=== PATIENT | female | born 1950 | race Caucasian/White ===

== ENCOUNTER 2017-11-22 08:08 | Day surgery (SDC) | payer MEDICARE, SELFPAY ==
[2017-11-16 13:30] VITALS: BMI 34.7
[2017-11-22] VITALS (17 sets, daily range): BP systolic 99–171; BP diastolic 42–99; PULSE 71–83; RESP 10–18; TEMP 36–36.8; O2SAT 86–96; BMI 34.7
--- NOTE | 2017-11-22 09:08 | PM.PREOP ---
Pre-operative Note Interval Note Pre-op Check: Yes History & Physical Reviewed by Physician and Yes Exam Performed Changes: Yes H&P completed within 30 days and has changed as indicated here:: This is an ADR (artificial disc replacement), not ACDF (fusion) at C56 and C67
--- NOTE | 2017-11-22 09:21 | PM.OP.1 ---
Operative Date/Time/Diagnoses Date of procedure: 11/22/17 Time of procedure: 11:37 Pre-op diagnosis: cervical disc herniation with radiculopathy Post-op diagnosis: same Procedure & Clinicians Procedure: C5-6 anterior diskectomy and artificial disc replacement C6-7 anterior diskectomy and artificial disc replacement Use of microscope Same procedure as scheduled: Yes Indications: [age] year old female with intractable pain from cervical disc herniation. They had failed conservative management and requested operative intervention. Risks and benefits of surgery were discussed and appropriate consents were obtained. Surgeon: Brandon Diaz Assembly Machine Tender: Alejandra Frankel Anesthesia Type: General Operative Notes Findings: None Closure Type: primary Specimen(s): none sent Implants & Drains: Flora LDR Mobi-C Estimated Blood Loss (mL): 5 Procedure in detail: Patient was brought to the operating room and intubated on the table. A time-out was performed. Preoperative antibiotics were given. The neck was prepped and draped in the standard sterile fashion.Using a skin fold, we made a 3 cm oblique incision on the left side. We used Bovie to go through the platysma and then did a standard anterolateral blunt dissection down to the precervical fascia. Fascia was nicked and elevated up. A marker was placed and x-ray was taken for localization. We then subperiosteally elevated up the longus colli muscles. Self-retaining retractors were placed. [place] pins were placed under x-ray guidance to be parallel to the endplates.We then brought in the microscope. A scalpel used to perform an annulotomy. We then used a combination of pituitaries and curettes and Kerrison to perform a complete anterior diskectomy at C6-7. We took down the PLL and used Kerrison to remove any posterior disc material and osteophytes. At the end we could from the nerve hook cephalad caudally and out the foramen and everything was opened. We distracted open with the parallel retail solar advisor. We then used the horseshoes for sizing. We then used the trials. We then inserted a 15 x 17 x 6mm size Mobi-C artificial disc replacement under fluoroscopic guidance for positioning. The traction was released and x-ray was checked again. The self-retaining retractors and Beason pins were removed and x-rays taken. We then went up to the C5-6 level. Again we distracted with Beason pins. A complete diskectomy was performed with pituitaries and curettes and Kerrison. We took down the PLL. We removed the posterior osteophytes. We trialed and then placed our next ADR, this was a 15 x 15 x 6mm Mobi-C. The retractors were all removed and final x-rays were taken. The wound was irrigated. There was no bleeding. The carotid was beating nicely. The platysma was closed. The superficial was closed. The skin was closed. A sterile dressing was placed. They were then extubated and brought to recovery room with no complications. Complications: none Condition: stable Disposition: PACU Plan for aftercare: Overnight observation. Discharge in the morning.
--- NOTE | 2017-11-22 09:24 | P.OP_ITS ---
Operative Date/Time/Diagnoses Date of procedure: 11/22/17 Time of procedure: 11:37 Pre-op diagnosis: cervical disc herniation with radiculopathy Post-op diagnosis: same Procedure & Clinicians Procedure: C5-6 anterior diskectomy and artificial disc replacement C6-7 anterior diskectomy and artificial disc replacement Use of microscope Same procedure as scheduled: Yes Indications: [age] year old female with intractable pain from cervical disc herniation. They had failed conservative management and requested operative intervention. Risks and benefits of surgery were discussed and appropriate consents were obtained. Surgeon: Brandon Diaz Sole Assessor: Alejandra Frankel Anesthesia Type: General Operative Notes Findings: None Closure Type: primary Specimen(s): none sent Implants & Drains: Flora LDR Mobi-C Estimated Blood Loss (mL): 5 Procedure in detail: Patient was brought to the operating room and intubated on the table. A time-out was performed. Preoperative antibiotics were given. The neck was prepped and draped in the standard sterile fashion.Using a skin fold, we made a 3 cm oblique incision on the left side. We used Bovie to go through the platysma and then did a standard anterolateral blunt dissection down to the precervical fascia. Fascia was nicked and elevated up. A marker was placed and x-ray was taken for localization. We then subperiosteally elevated up the longus colli muscles. Self-retaining retractors were placed. [place] pins were placed under x-ray guidance to be parallel to the endplates.We then brought in the microscope. A scalpel used to perform an annulotomy. We then used a combination of pituitaries and curettes and Kerrison to perform a complete anterior diskectomy at C6-7. We took down the PLL and used Kerrison to remove any posterior disc material and osteophytes. At the end we could from the nerve hook cephalad caudally and out the foramen and everything was opened. We distracted open with the parallel polygraph examiner. We then used the horseshoes for sizing. We then used the trials. We then inserted a 15 x 17 x 6mm size Mobi- C artificial disc replacement under fluoroscopic guidance for positioning. The traction was released and x-ray was checked again. The self-retaining retractors and [place] pins were removed and x-rays taken. We then went up to the C5-6 level. Again we distracted with [place] pins. A complete diskectomy was performed with pituitaries and curettes and Kerrison. We took down the PLL. We removed the posterior osteophytes. We trialed and then placed our next ADR, this was a 15 x 15 x 6mm Mobi-C. The retractors were all removed and final x-rays were taken. The wound was irrigated. There was no bleeding. The carotid was beating nicely. The platysma was closed. The superficial was closed. The skin was closed. A sterile dressing was placed. They were then extubated and brought to recovery room with no complications. Complications: none Condition: stable Disposition: PACU Plan for aftercare: Overnight observation. Discharge in the morning.
[2017-11-22] MEDS: LACTATED RINGERS 1,000 ML 42 ML IV ×2 (09:31→12:07)
[2017-11-22] MEDS: CLINDAMYCIN 900 MG/50 ML PIGGYBACK 50 MG IV ×2 (10:03→17:35)
--- NOTE | 2017-11-22 10:35 | SUR.OPER ---
Supine on padded OR bed, head on donut, arms padded and tucked at side, legs uncrossed, safety belt at thigh, tape over blanket over lower legs .
[2017-11-22] MEDS: THROMBIN (BOVINE) 5,000 UNIT VIAL 5000 UNIT TOP (10:41)
[2017-11-22] MEDS: SODIUM CHLORIDE 0.9% 1,000 ML, GENTAMICIN 80 MG IRR (10:47)
--- NOTE | 2017-11-22 11:31 | DI.RAD.S_ITS ---
PROCEDURE: XR CERVICAL SPINE 2V OR 3V INDICATIONS: ADR C5-6, C6-7 TECHNIQUE: 2 view(s) of the cervical spine were acquired. COMPARISON: None. FINDINGS: 2 intraoperative fluoroscopy images demonstrate discectomy at C5-C6 and C6-C7 with placement of disc prosthesis. The alignment is normal. IMPRESSION: Discectomy at C5-C6 and C6-C7. Dictated by: Bree Calero M.D. on 11/22/2017 at 11:49 Approved by: Bree Calero M.D. on 11/22/2017 at 11:50
[2017-11-22] MEDS: HYDROMORPHONE 2 MG INJ 0.5 MG IV ×4 (11:52→12:21)
[2017-11-22] MEDS: ALBUTEROL 2.5 MG/3 ML NEB (ADULT) INH (12:00)
[2017-11-22] MEDS: LORazepam 2 MG/ML SYRINGE 0.5 MG IV (12:06)
--- NOTE | 2017-11-22 12:53 | SUR.PHASEI ---
PT ARRIVED, RESTLESS, DUSKY SATS ON ROOM AIR INITIALLY IN 70'S,SIMPLE MASK APPLIED AND ALBUTEROL TREATMENT GIVEN, SATS EVENTUALLY CAME UP AND PT WEANED TO NASAL CANNULA AT 4/L . MEDICATED WITH LORAZEPAM FOR ANXIETY AND PT MUCH MORE RELAXED AFTER MED GIVEN. SWALLOW INTACT PT TOLERATED ICE CHIPS AND SPEECH STRONG. REPORT CALLED TO [facility]ANE AND PT TRANSPORTED UP TO ROM 214 ON O2 AT 4/L AND LWEFT IN STABLE CONDITION.
--- NOTE | 2017-11-22 13:46 | PT.IPTN ---
Current Diagnoses Other cervical disc displacement, unspecified cervical region (11/22/17) Strain of muscle, fascia and tendon at neck level, initial encounter (11/22/17) Surgery Performed Operation Date: 11/22/17 09:45 Actual Procedures p C5-6,C6-7 Anterior Discectomy and Artificial Disc Replacements - Brandon Diaz MD Physical Therapy Treatment Note M3 PT-IP Subjective Start: 11/22/17 13:44 Freq: NEEDED Status: Active Protocol: Document 11/22/17 13:44 (Rec: 11/22/17 13:46 [id number]) Subjective Physical Therapy Visit Type Type Administrative Note Notes 1:46pm RN states patient not ready for PT participation at this time. Will check on pt later.
[2017-11-22] MEDS: METHADONE 10 MG TABLET 30 MG PO ×2 (14:24→20:12)
[2017-11-22] MEDS: LACTATED RINGERS 1,000 ML 125 ML IV ×2 (14:25→22:27)
[2017-11-22] MEDS: HYDROMORPHONE 1 MG INJ 0.5 MG IV ×2 (14:26→22:27)
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
--- NOTE | 2017-11-22 16:30 | PT.IIE ---
Current Diagnoses Other cervical disc displacement, unspecified cervical region (11/22/17) Strain of muscle, fascia and tendon at neck level, initial encounter (11/22/17) Surgery Performed Operation Date: 11/22/17 09:45 Actual Procedures p C5-6,C6-7 Anterior Discectomy and Artificial Disc Replacements - Brandon Diaz MD Surgical History (Last Updated 11/16/17 @ 13:36 by Vandana Shearer RN) History of abdominal surgery (Acute) History of cholecystectomy (Acute) History of lumbar fusion (Acute) History of lumbar laminectomy (Acute) History of tonsillectomy (Acute) Hx of bladder repair surgery (Acute) Hx of tubal ligation (Acute) S/P removal of left ovary (Acute) Medical History (Last Updated 11/16/17 @ 13:36 by Vandana Shearer RN) Cervical disc herniation (Acute) Chronic, continuous use of opioids (Acute) Depression (Acute) Diabetes mellitus (Acute) GERD (gastroesophageal reflux disease) (Acute) History of cystitis (Acute) History of hysterectomy (Acute) Hyperlipidemia (Acute) Hypertension (Acute) Other chronic pain (Acute) Pain (Acute) Pancreatitis (Acute) Sleep apnea (Acute) Spinal headache (Acute) Spinal stenosis of cervical region (Acute) Strain of neck muscle (Acute) Physical Therapy Inpatient Evaluation/Re-Eval M1 PT/OT-IP Prior Functional Status Start: 11/22/17 13:44 Freq: NEEDED Status: Active Protocol: Document 11/22/17 16:30 AB (Rec: 11/22/17 17:26 AB [id number]) Medical Review Prior Functional Status Medical History Reviewed Yes Communication able to make needs known although pt is a little drowsy a this time Mobility and Gait pt stated that she is independent with all mobilities and ambulation without AD Social History Household Members family Living Arrangements House Number of Floors (Floors) One Floor Number of Stairs To Enter/Railing? 1 step from the front without rails 2 steps from the back without rails Home Environment High Toilet Walk in Shower Home Equipment Four Wheel Walker Straight Cane Manual Wheelchair Shower Seat without Backrest Hand Held Shower Grab Bars Near Toilet Grab Bars In Shower Employment Status Retired Additional Social History Comment pt stated that her sister can assist her; pt lives with her sister and her mom (who has dementia and pt and her sister takes car of her) M2 PT-IP Current Condition Start: 11/22/17 13:44 Freq: NEEDED Status: Active Protocol: Document 11/22/17 16:30 AB (Rec: 11/22/17 17:26 AB [id number]) Physical Therapy Current Condition Current Condition Evaluation Date 11/22/17 Treatment Diagnosis s/p C5-6, C6-7 discectomy; difficulty in walking Onset Date 11/22/17 Precautions Cervical Spine Precautions Soft Collar for Comfort No Heavy Lifting Log Roll M3 PT-IP Subjective Start: 11/22/17 13:44 Freq: NEEDED Status: Active Protocol: Document 11/22/17 16:30 AB (Rec: 11/22/17 17:26 AB [id number]) Subjective Physical Therapy Visit Type Type Initial Evaluation Visit Start Time 16:30 Visit Stop Time 17:15 Total Visit Minutes 45 Number of MINER HELPER Visits 0 Physical Therapy Visit Comments Patient Comments i am really sore; i need a heating pad Therapy Pain Assessment Pain When Pain Assessed At Rest Pain Present Pain Present Pain Reported Location Bilateral Posterior Neck Intensity 8 Scale Used Numeric (1 - 10) Pain Management Techniques Distraction Re-positioning Timing of Activity with Medications M4 PT-IP Mobility and Gait Start: 11/22/17 13:44 Freq: NEEDED Status: Active Protocol: Document 11/22/17 16:30 AB (Rec: 11/22/17 17:26 AB [id number]) PT-Bed Mobility Assessment Supine to Sit Supine to Sit Minimal Assistance Head of Bed Elevated Bedrails PT-Transfer Assessment Sit to and From Stand Sit to and from Stand Contact Guard Assistance 1 Person Assistance Use of Upper Extremities Equipment Transfer Assistive Device Gait Belt Transfers Transfer Destination Toilet Transfer Technique pt ambulated to the toilet without AD CGA and cues for safety Transfer Ability Level of Assist Contact Guard Assistance 1 Person Assistance Use of Upper Extremities Comments Mobility Comments pt agreeable to get up but seems drowny but able to follow commands. pt requested to use the toilet and ambulated without AD CGA. ambulated out of the toilet pushing IV pole SBA to CGA and was able to maintain standing by the sink SBA while doing handwashing. Gait Assessment Gait Gait Assistance Required: Contact Guard Assist Distance (Feet) 30 Able to Maintain Weight Bearing Status Yes During Gait Assistive Devices Assistive Device Gait Belt Orthotic/Prosthetic Devices or Brace: Yes Gait Deviations General Gait Pattern Antalgic Factors Limiting Gait Function Factors Limiting Gait Function Decreased Activity Tolerance Limited Range of Motion Pain Poor Balance Poor Safety Awareness Comments Gait Comments pt has cervical soft collar on upon eval. pt ambulated in room without AD CGA and cues ~ 30 ft with standing rest breaks in between due to c/o cervical pain/soreness. set up pt on chair for dinner. call light placed within reach. refused ice pack and stated cold make the pain worse. PT-Balance Assessment Sitting Balance and Reactions Static Sitting Balance Ability Good Dynamic Sitting Balance Ability Good Standing Balance and Reactions Static Standing Balance Ability Fair Dynamic Standing Balance Ability Fair Device Used without AD M5 PT-IP Objective Assessments Start: 11/22/17 13:44 Freq: NEEDED Status: Active Protocol: Document 11/22/17 16:30 AB (Rec: 11/22/17 17:26 AB [id number]) Orientation Orientation/Cognition Level of Alertness Alert Orientation Name Age Birthday Place Situation Safety Awareness Decreased Safety Awareness Gross Range of Motion Lower Extremity ROM Assessment Within Functional Limits Strength Lower Extremity Strength Assessment Within Functional Limits Muscle Tone Muscle Tone WNL Yes M6 PT-IP Treatment Start: 11/22/17 13:44 Freq: NEEDED Status: Active Protocol: Document 11/22/17 16:30 AB (Rec: 11/22/17 17:26 AB [id number]) Physical Therapy Treatment Education Education Provided Precautions Weight Bearing Status Post-Op Packet Safety Brace Education Donning Patient Other Treatments Other Treatment Performed pt has soft collar on upon eval. educated on how to mikie/doff cervical collar in front of the mirror. pt required assist with collar and stated that her sister is a retired PT and can assist her at home. M7 PT-IP Assessment and Plan Start: 11/22/17 13:44 Freq: NEEDED Status: Active Protocol: Document 11/22/17 16:30 AB (Rec: 11/22/17 17:26 AB [id number]) PT Summary Assessment and Plan Potential Rehabilitation Potential Good Status of Condition at Evaluation Evolving Summary Impairments Pain ROM Strength Balance Coordination Sensation Tone Cognition Bed Mobility Transfers Gait Activity Tolerance Assessment Summary pt requiring min A with bed mobility but completed with HOB elevated and use of bed rails. pt required CGA with transfer and ambulation without AD. pt plans to go home and her sister can assist her at home. stair climbing training needs to be completed prior to d/c. will continue to assess. Goals Bed Mobility Goal Independent Transfer Goal Independent Gait Goal Independent Gait Distance 200 Other Goals up/down 1 step without rails SBA Days to Meet Goals 2 Frequency of Treatment Frequency Of Treatment Twice a Day Treatment Plan Physical Therapy Treatment Plan Bed Mobility Training Transfer Training Gait Training Therapeutic Exercise Balance Retraining Post Op Education Discharge Planning Hot or Cold Pack Neuromuscular Re-ed Coordination Retraining Manual Therapy Other Recommendations and Next Treatment bed mobility, stair climbing Focus Recommendations To Nursing Amount of Assist Needed 1 Person Assist Discharge Recommendations PT Discharge Recommendations Home with Assistance
--- NOTE | 2017-11-22 16:59 | PC.NURSE ---
Gudelia shift note: Patient up out of bed, sitting in chair with physical therapy. Soft collar in place, dressing to anterior cervical region, CDI. CMS intact to upper and lower extremities bilaterally. No c/o nause or vomiting, tolerating PO intake. Continue on O2 at 4L via NC, O2 sat 94-96%. Patient states requires O2 while sleeping at home due to [place]. Refuses to use Cpap. Call light within reach.
[2017-11-22] MEDS: OXYCODONE IR 5 MG TABLET 10 MG PO (17:51)
[2017-11-22] MEDS: SENNOSIDES 8.6 MG TABLET 17.2 MG PO (20:12)
[2017-11-22] MEDS: DOCUSATE 100 MG CAPSULE PO (20:12)
[2017-11-22] MEDS: hydrOXYzine pamoate 25 MG CAPSULE PO (20:25)
[2017-11-23] VITALS (9 sets, daily range): BP systolic 96–143; BP diastolic 53–80; PULSE 81–94; RESP 12–21; TEMP 36.6–37.2; O2SAT 89–93
[2017-11-23] MEDS: OXYCODONE IR 5 MG TABLET 10 MG PO ×6 (00:11→23:30)
[2017-11-23] MEDS: CLINDAMYCIN 900 MG/50 ML PIGGYBACK 50 MG IV (02:16)
[2017-11-23] MEDS: HYDROMORPHONE 2 MG INJ 0.5 MG IV (02:16)
--- NOTE | 2017-11-23 07:43 | PM.PNPO.1 ---
Subjective Date Patient Seen: 11/23/17 Time Patient Seen: 07:43 Interval history: Muscle pain at base of neck. Arms fine. Exam Vital Signs (past 8 hours): - 11/23/17 00:12 11/23/17 04:10 Temperature 97.9 F 98 F Pulse Rate 87 81 Respiratory Rate 18 21 Blood Pressure 131/75 143/74 H Pulse Oximetry 93 92 Oxygen Delivery Method Nasal Cannula Oxygen Flow Rate 2 Const Orientation: alert and oriented x3 Back/Spine/Pelvis Other: cdi. 5/5 motor BUE Assessment & Plan Post-op Postoperative Procedures Operation Date: 11/22/17 09:45 Actual Procedures Side Surgeon p C5-6,C6-7 Anterior Discectomy and Artificial Disc Replacements Brandon Diaz MD She's doing well after surgery. Mobilize with PT. DC home later today.
[2017-11-23] MEDS: ASPIRIN 81 MG TAB PO (09:31)
[2017-11-23] MEDS: LISINOPRIL 20 MG TABLET PO (09:31)
--- NOTE | 2017-11-23 09:53 | PT.IPTN ---
Current Diagnoses Other cervical disc displacement, unspecified cervical region (11/22/17) Strain of muscle, fascia and tendon at neck level, initial encounter (11/22/17) Surgery Performed Operation Date: 11/22/17 09:45 Actual Procedures p C5-6,C6-7 Anterior Discectomy and Artificial Disc Replacements - Brandon Diaz MD Physical Therapy Treatment Note M2 PT-IP Current Condition Start: 11/22/17 13:44 Freq: NEEDED Status: Active Protocol: Document 11/22/17 16:30 AB (Rec: 11/22/17 17:26 AB [id number]) Physical Therapy Current Condition Current Condition Evaluation Date 11/22/17 Treatment Diagnosis s/p C5-6, C6-7 discectomy; difficulty in walking Onset Date 11/22/17 Precautions Cervical Spine Precautions Soft Collar for Comfort No Heavy Lifting Log Roll M3 PT-IP Subjective Start: 11/22/17 13:44 Freq: NEEDED Status: Active Protocol: Document 11/23/17 09:53 AB (Rec: 11/23/17 12:57 AB [id number]) Subjective Physical Therapy Visit Type Type Treatment Note Visit Start Time 09:53 Visit Stop Time 10:15 Total Visit Minutes 22 Number of KNITTER WIRE MESH Visits 0 Physical Therapy Visit Comments Patient Comments pt agreeable to do PT Therapy Pain Assessment Pain When Pain Assessed At Rest Pain Present Pain Present Pain Reported Location Bilateral Posterior Neck Scale Used pain scale not stated Pain Management Techniques Timing of Activity with Medications M4 PT-IP Mobility and Gait Start: 11/22/17 13:44 Freq: NEEDED Status: Active Protocol: Document 11/23/17 09:53 AB (Rec: 11/23/17 12:57 AB [id number]) PT-Transfer Assessment Sit to and From Stand Sit to and from Stand Standby Assistance Equipment Transfer Assistive Device Gait Belt Gait Assessment Gait Gait Assistance Required: Standby Assistance Distance (Feet) 250 Able to Maintain Weight Bearing Status Yes During Gait Assistive Devices Assistive Device Gait Belt Orthotic/Prosthetic Devices or Brace: No Gait Deviations General Gait Pattern Antalgic Factors Limiting Gait Function Factors Limiting Gait Function Decreased Strength Pain Poor Balance Poor Safety Awareness Comments Gait Comments RT stated that pt needs O2. provided pt with protable O2 during tx session and O2 sat maintained at 92 to 94% with 2L/min of O2. Stair Climbing Assessment Evaluation Level of Assist On Stairs Standby Assistance Devices Stair Climbing Assistive Devices Left Railing Technique/Endurance Stair Climbing Direction Ascend and Descend Stair Climbing Technique Step to Step Number of Steps Climbed 3 Query Text: Stair Climbing Set # Repetitions (reps) 2 Comments Stair Climbing Comments pt completed up/down steps using L rail ascending SBA and then completed without rails SBA ascending but hold on to one rail with descending steps . pt stated that she has a brick pot that she can hold on to getting out of the house. pt completed up/down 1 steps SBA. M5 PT-IP Objective Assessments Start: 11/22/17 13:44 Freq: NEEDED Status: Active Protocol: Document 11/22/17 16:30 AB (Rec: 11/22/17 17:26 AB [id number]) Orientation Orientation/Cognition Level of Alertness Alert Orientation Name Age Birthday Place Situation Safety Awareness Decreased Safety Awareness Gross Range of Motion Lower Extremity ROM Assessment Within Functional Limits Strength Lower Extremity Strength Assessment Within Functional Limits Muscle Tone Muscle Tone WNL Yes M6 PT-IP Treatment Start: 11/22/17 13:44 Freq: NEEDED Status: Active Protocol: Document 11/23/17 09:53 AB (Rec: 11/23/17 12:57 AB [id number]) Physical Therapy Treatment Education Education Provided Precautions Safety M7 PT-IP Assessment and Plan Start: 11/22/17 13:44 Freq: NEEDED Status: Active Protocol: Document 11/23/17 09:53 AB (Rec: 11/23/17 12:57 AB [id number]) PT Summary Assessment and Plan Potential Rehabilitation Potential Good Summary Impairments Pain ROM Strength Balance Coordination Sensation Tone Cognition Bed Mobility Transfers Gait Activity Tolerance Assessment Summary pt doing well with mobility and rquiring SBA. pt plans to go home and stated that her sister can assist her at home. Goals Bed Mobility Goal Independent Transfer Goal Independent Gait Goal Independent Gait Distance 200 Other Goals up/down 1 step without rails SBA Days to Meet Goals 2 Frequency of Treatment Frequency Of Treatment Twice a Day Treatment Plan Physical Therapy Treatment Plan Bed Mobility Training Transfer Training Gait Training Therapeutic Exercise Balance Retraining Post Op Education Discharge Planning Hot or Cold Pack Neuromuscular Re-ed Coordination Retraining Manual Therapy Other Recommendations and Next Treatment bed mobility, stair climbing Focus Recommendations To Nursing Amount of Assist Needed 1 Person Assist Discharge Recommendations PT Discharge Recommendations Home with Assistance
[2017-11-23] MEDS: DOCUSATE 100 MG CAPSULE PO (10:26)
[2017-11-23] MEDS: OXYCODONE IR 5 MG TABLET PO (10:27)
[2017-11-23] MEDS: METHADONE 10 MG TABLET 30 MG PO (10:31)
--- NOTE | 2017-11-23 13:30 | PT.IPTN ---
Current Diagnoses Other cervical disc displacement, unspecified cervical region (11/22/17) Strain of muscle, fascia and tendon at neck level, initial encounter (11/22/17) Surgery Performed Operation Date: 11/22/17 09:45 Actual Procedures p C5-6,C6-7 Anterior Discectomy and Artificial Disc Replacements - Brandon Diaz MD Physical Therapy Treatment Note M2 PT-IP Current Condition Start: 11/22/17 13:44 Freq: NEEDED Status: Active Protocol: Document 11/22/17 16:30 AB (Rec: 11/22/17 17:26 AB [id number]) Physical Therapy Current Condition Current Condition Evaluation Date 11/22/17 Treatment Diagnosis s/p C5-6, C6-7 discectomy; difficulty in walking Onset Date 11/22/17 Precautions Cervical Spine Precautions Soft Collar for Comfort No Heavy Lifting Log Roll M3 PT-IP Subjective Start: 11/22/17 13:44 Freq: NEEDED Status: Active Protocol: Document 11/23/17 15:02 GGD (Rec: 11/23/17 15:10 GGD [id number]) Subjective Physical Therapy Visit Type Type Treatment Note Visit Start Time 13:30 Visit Stop Time 14:00 Total Visit Minutes 30 Number of BUSINESS SPECIALIST Visits 1 Physical Therapy Visit Comments Patient Comments Pt willing to walk. Therapy Pain Assessment Pain When Pain Assessed At Rest Pain Present Pain Present Pain Reported Location Bilateral Posterior Neck Scale Used pain scale not stated Pain Management Techniques Re-positioning M4 PT-IP Mobility and Gait Start: 11/22/17 13:44 Freq: NEEDED Status: Active Protocol: Document 11/23/17 15:02 GGD (Rec: 11/23/17 15:10 GGD [id number]) PT-Bed Mobility Assessment Supine to Sit Supine to Sit Contact Guard Assistance Head of Bed Elevated Bedrails Scooting Scooting to Edge of Bed Standby Assistance PT-Transfer Assessment Sit to and From Stand Sit to and from Stand Standby Assistance Equipment Transfer Assistive Device Gait Belt Transfers Transfer Destination Chair Gait Assessment Gait Gait Assistance Required: Standby Assistance Distance (Feet) 250 Able to Maintain Weight Bearing Status Yes During Gait Assistive Devices Assistive Device Gait Belt Orthotic/Prosthetic Devices or Brace: No Gait Deviations General Gait Pattern Antalgic Factors Limiting Gait Function Factors Limiting Gait Function Decreased Strength Pain Poor Balance Poor Safety Awareness Comments Gait Comments At rest O2 on RA 84%, With gait 90-91% on RA. M5 PT-IP Objective Assessments Start: 11/22/17 13:44 Freq: NEEDED Status: Active Protocol: Document 11/22/17 16:30 AB (Rec: 11/22/17 17:26 AB [id number]) Orientation Orientation/Cognition Level of Alertness Alert Orientation Name Age Birthday Place Situation Safety Awareness Decreased Safety Awareness Gross Range of Motion Lower Extremity ROM Assessment Within Functional Limits Strength Lower Extremity Strength Assessment Within Functional Limits Muscle Tone Muscle Tone WNL Yes M6 PT-IP Treatment Start: 11/22/17 13:44 Freq: NEEDED Status: Active Protocol: Document 11/23/17 09:53 AB (Rec: 11/23/17 12:57 AB [id number]) Physical Therapy Treatment Education Education Provided Precautions Safety M7 PT-IP Assessment and Plan Start: 11/22/17 13:44 Freq: NEEDED Status: Active Protocol: Document 11/23/17 15:02 GGD (Rec: 11/23/17 15:10 GGD [id number]) PT Summary Assessment and Plan Summary Assessment Summary Pt improving with mobility. She had no unsteadiness with gait. She improved with O2 sats with ambulation. Frequency of Treatment Frequency Of Treatment Twice a Day Treatment Plan Other Recommendations and Next Treatment bed mobility, stair climbing, Focus monitor O2 Recommendations To Nursing Amount of Assist Needed 1 Person Assist Discharge Recommendations PT Discharge Recommendations Home with Assistance
--- NOTE | 2017-11-23 14:25 | PC.NURSE ---
Pt was set to discharge home today but her oxygen saturation goes down to 84% at rest and sleep. When she is totally awake and ambulating in the halls, she maintains 91-92%. Phoned DR. Diaz and he states to let pt stay another night and get an rt consult so that they can assess her breathing and give her nebs as needed. She was just given 1 percolone and helpful for discomfort. Dressing to anterior neck is cdi. Pt is resting comfortably.
--- NOTE | 2017-11-23 14:40 | OT.IP.EVAL ---
Current Diagnoses Other cervical disc displacement, unspecified cervical region (11/22/17) Strain of muscle, fascia and tendon at neck level, initial encounter (11/22/17) Surgery Performed Operation Date: 11/22/17 09:45 Actual Procedures p C5-6,C6-7 Anterior Discectomy and Artificial Disc Replacements - Brandon Diaz MD Past Medical History (Last Updated 11/16/17 @ 13:36 by Vandana Shearer, RN) Cervical disc herniation (Acute) Chronic, continuous use of opioids (Acute) Depression (Acute) Diabetes mellitus (Acute) GERD (gastroesophageal reflux disease) (Acute) History of cystitis (Acute) History of hysterectomy (Acute) Hyperlipidemia (Acute) Hypertension (Acute) Other chronic pain (Acute) Pain (Acute) Pancreatitis (Acute) Sleep apnea (Acute) Spinal headache (Acute) Spinal stenosis of cervical region (Acute) Strain of neck muscle (Acute) Surgical History (Last Updated 11/16/17 @ 13:36 by Vandana Shearer RN) History of abdominal surgery (Acute) History of cholecystectomy (Acute) History of lumbar fusion (Acute) History of lumbar laminectomy (Acute) History of tonsillectomy (Acute) Hx of bladder repair surgery (Acute) Hx of tubal ligation (Acute) S/P removal of left ovary (Acute) Occupational Therapy Inpatient Evaluation/Re-Eval M1 PT/OT-IP Prior Functional Status Start: 11/22/17 13:44 Freq: NEEDED Status: Active Protocol: Document 11/23/17 14:40 PJMelida (Rec: 11/23/17 17:12 PJM [id number]) Medical Review Prior Functional Status Medical History Reviewed Yes Diet/Fluid Consistency Regular Communication WNL Mobility and Gait pt stated that she is independent with all mobilities and ambulation without AD Activities of Daily Living and IADL's Pt was indep with all self care, IADLS, drives, helps care for mother with dementia Social History Household Members family Living Arrangements House Number of Floors (Floors) One Floor Number of Stairs To Enter/Railing? 2 stairs to enter, no rail Home Environment High Toilet Walk in Shower Home Equipment Four Wheel Walker Manual Wheelchair Shower Seat with Backrest Grab Bars Near Toilet Grab Bars In Shower Employment Status Retired Additional Social History Comment Pt lives with sister, who works as [employer] sister's boyfriend who does not work and her mother with dementia. M2 OT-IP Current Condition Start: 11/23/17 16:58 Freq: Status: Active Protocol: Document 11/23/17 14:40 PJM (Rec: 11/23/17 17:12 PJM [email or web address]) Occupational Therapy Current Condition Current Condition Evaluation Date 11/23/17 Treatment Diagnosis decreased self care,mobility s /p C5-6, C6-7 w/artificial discs,low O2 sats Diagnosis Onset Date 11/22/17 Post Operative Precautions Cervical Spine Precautions Soft Collar for Comfort No Heavy Lifting Log Roll M3 OT- IP Subjective and Pain Start: 11/23/17 16:58 Freq: Status: Active Protocol: Document 11/23/17 14:40 PJM (Rec: 11/23/17 17:12 PJM [id number]) OT- Subjective Occupational Therapy Visit Type Type Initial Evaluation Visit Start Time 14:20 Visit Stop Time 14:40 Total Visit Minutes 20 Notes Participation limited by fatigue, pain level and drowsiness; pt unable to d/c home today due to low O2 sats; note pt is current daily smoker Occupational Therapy Visit Comments Patient Comments 'My neck is killing me. I can' t do anything right now. Patient/Caregiver Goals to have less pain and be able to go home OT Pain Assessment Pain When Pain Assessed After Treatment Pain Present Pain Present Pain Reported Location Bilateral Posterior Neck Intensity 7 Scale Used Numeric (1 - 10) Description Aching Acute M4 OT- IP ADL's Start: 11/23/17 16:58 Freq: Status: Active Protocol: Document 11/23/17 14:40 PJM (Rec: 11/23/17 17:12 PJM [id number]) OT SYY-Tamg-Zjdvcut General Evaluation Diet Level for Self-Feeding soft foods, dislikes cold thin liquids Self-Feeding Ability Independent Comments OT Self-Feeding Comments eats slowly to sore throat OT ADL-Grooming General Evaluation Grooming Ability Standby Assistance Areas Needing Assistance Face Washing Comments OT Grooming Comments in chair OT ADL-Oral Care Comments Oral Care Comments pt declined today OT ADL-Dressing Comments OT Dressing Comments to be assessed; pt declined today; began education er: body mechanics OT ADL-Toileting Comments OT Toileting Comments did not occur this session; pt states she has been up to bathroom independently OT ADL-Bathing Comments OT Bathing Comments to be assessed M5 OT- IP IADL's Start: 11/23/17 16:58 Freq: Status: Active Protocol: Document 11/23/17 14:40 PJM (Rec: 11/23/17 17:12 PJM [email or web address]) OT-Instrumental Activities of Daily Living Deficits IADL Deficits Identified Deficits Home Safety Awareness Awareness of Need for Assistance at Home Good Awareness Ability to Problem Solve Emergency Able to Problem Solve Situations Medication Management Medication Management No Deficits Identified Money Management Money Management No Deficits Identified Meal Preparation Meal Preparation Caregiver Provides Assist Meal Preparation Comments family can assist until pt able Coordinator Of Rehabilitation Services Coordinator Of Rehabilitation Services Caregiver Provides Assist Coordinator Of Rehabilitation Services Comments family can assist until pt able Driving Driving Caregiver Provides Assist Driving Comments family can assist until pt able M6 OT- IP Functional Cognition Start: 11/23/17 16:58 Freq: Status: Active Protocol: Document 11/23/17 14:40 PJM (Rec: 11/23/17 17:12 PJM [email or web address]) Cognitive Factors Limiting Selfcare Function Cognitive Ability Level of Alertness Drowsy Patient Orientation Name Age Birthday Month Date Year Day of Week Place Situation Attention Span Ability Capable of Focused Attention Ability to Follow Commands Able to Follow One Step Commands Cognitive Comments Cognitive Assessment Comments pt drowsy this session and focused on pain level OT- Vision and Hearing OT- Hearing Assessment OT- Hearing Assessment WFL OT- Vision Assessment Visual Acuity WFL Vision Assessment Comments Pt denies any recent changes. M7 OT- IP Mobility and Balance Start: 11/23/17 16:58 Freq: Status: Active Protocol: Document 11/23/17 14:40 PJM (Rec: 11/23/17 17:12 PJM [email or web address]) OT-Transfer Assessment Comments Mobility Comments see P.T. notes OT- Gait Assessment Comments Gait Ability Comments see P.T. notes OT- Balance Assessment Comments Other Balance Tests/Deviations/Treatment see P.T. notes : M8 OT- IP Objective Assessments Start: 11/23/17 16:58 Freq: Status: Active Protocol: Document 11/23/17 14:40 PJM (Rec: 11/23/17 17:12 PJM NRTM) OT Gross Range of Motion Upper Extremity Range of Motion Assessment Within Functional Limits ROM Impairments within C spine precautions OT Strength Upper Extremity Strength Assessment Within Functional Limits OT- Coordination Assessment Comments Coordination Comments BUE WFL OT-Muscle Tone Assessment Muscle Tone WNL Yes OT Sensation Assessment Comments Summary Comments Pt reports RUE whole arm numb and tingly prior to surgery; now resolved Edema Edema Absent M9 OT- IP Assessment and Plan Start: 11/23/17 16:58 Freq: Status: Active Protocol: Document 11/23/17 14:40 PJM (Rec: 11/23/17 17:12 PJM [id number]) OT Summary Assessment and Plan Potential Rehabilitation Potential Good Analytic Complexity at Evaluation Low Summary OT Impairments Pain Grooming Dressing Bathing Shower Transfers Assessment Summary Low complexity OT assessment completed today as limited by pt's decreased pain control, drowsiness and fatigue. Pt unable to d/c home today due to low O2 sats and she continues to require 1-2 L supplemental O2 via NC. Pt has performance deficits in activity tolerance, lower body dressing and bathing. She will benefit from 1 more OT visit tomorrow to address the goals below. Goals Grooming Goal Independent Dressing Goal Independent Bathing Goal Standby Assistance Shower Transfer Goal Standby Assistance Patient/Caregiver Education Goal Demonstrate Post-Op Precautions Demonstrate Energy Conservation and Pacing Caregiver Independent Assisting Patient Days to Meet Goals 1 Frequency of Treatment Frequency Of Treatment Once a Day Treatment Plan OT Treatment Plan ADL Training Functional Mobility Patient/Family Education Discharge Planning Discharge Recommendations OT Discharge Recommendations Home with Assistance
--- NOTE | 2017-11-23 15:16 | CM.IDA ---
DCP Assessment Note: Pt is a 67 yo female, resident of [facility]. Pt SDC for scheduled spinal surgery. Insurance is [facility] Medicare. Pt indp at baseline, lives w/sister. Pt eager to return home today or tomorrow. PT has assessed and cleared pt for return home w/assist from family. Pt expects to barriers to safe DC home. This PUBLIC HEALTH TEACHER available if DC needs or concerns arise and plan changes. AARON Reis Discharge Planning/Care Management CM Discharge Assessment Start: 11/23/17 15:12 Freq: Status: Active Protocol: Document 11/23/17 15:12 BETH (Rec: 11/23/17 15:16 BETH [id number]) Discharge Planning Assessment Assigned Director Of Cardiac Rehabilitation AARON Man DPOA/Assigned Designee Name ori Chin Contact Information [phone] Advance Directives? No History Provided By Patient Medical Record Prior Living Arrangements House Household Members family Comment Lives w/sister Type of transporation used prior to Relies on Others admit Independent with ADL's Yes Is patient alert and oriented? Yes Barriers to Discharge No Comment Sister to assist at DC. Discharge Plan Home Transportation Arrangement Family Referrals Initiated None needed Additional Comment F/u in the outpt setting Whiteboard Updated in Patient Room with Yes name and ext. # of Director Of Cardiac Rehabilitation Review Status In Process Please Provide Date Initial DC 11/23/17 Assessment Was Performed
[2017-11-23] MEDS: SODIUM CHLORIDE 0.9% FLUSH 10 ML IV (20:40)
[2017-11-23] MEDS: hydrOXYzine pamoate 25 MG CAPSULE PO (22:45)
--- NOTE | 2017-11-23 23:46 | PC.NURSE ---
Addendum entered by Glenys Tripathi R.N. 11/24/17 06:05: Correction on previous charting: Patient states she had BM on 11/22/17 Original Note: Addendum entered by Glenys Tripathi R.N. 11/24/17 05:46: Slept most of shift. Noted O2 sat to fluctuate between 86% and 93%. This morning was up to bathroom and on RA is 95%. BP improved at 145/74. Complains of 8/10 posterior neck pain so medicated with Oxycodone. Original Note: Addendum entered by Glenys Tripathi R.N. 11/24/17 01:55: O2 sat now back to 92% with 2L/min oxygen and patient asleep Original Note: Addendum entered by Glenys Tripathi R.N. 11/24/17 01:01: Noted oximeter reading of 90% when asleep so O2 increased to 2L/min. Original Note: Patient is drowsy but oriented. Respirations shallow and breath sounds diminished throughout. On oxygen at 1.5L/min per NC with continuous pulse ox on; sat is 92%. HRR. BP low at 96/54 on left arm and 108/53 on right arm. Denies nausea. BT present and is passing flatus but has not had BM since 11/20. Denies dysuria, frequency, urgency or incontinence; urine is clear ev. Independent with bed mobility. Assisted when out of bed for safety. Fall risk score is moderate and bed alarm activated as patient states she will call for help but if staff don't come immediately will get out of bed herself. Wearing soft cervical collar; dressing is CDI on anterior neck. Complains of 8/10 pain so medicated with Oxycodone; refuses ice pack. Refusing SCD's.
[2017-11-24] VITALS (7 sets, daily range): BP systolic 99–145; BP diastolic 53–74; PULSE 81–90; RESP 18; TEMP 36–36.7; O2SAT 85–96
[2017-11-24] MEDS: OXYCODONE IR 5 MG TABLET 10 MG PO ×4 (05:45→14:58)
[2017-11-24] MEDS: ASPIRIN 81 MG TAB PO (08:22)
[2017-11-24] MEDS: LISINOPRIL 20 MG TABLET PO (08:22)
[2017-11-24] MEDS: METHADONE 10 MG TABLET 30 MG PO (08:22)
[2017-11-24] MEDS: DOCUSATE 100 MG CAPSULE PO (08:22)
[2017-11-24] MEDS: SODIUM CHLORIDE 0.9% FLUSH 10 ML IV (08:23)
--- NOTE | 2017-11-24 10:21 | PC.NURSE ---
Addendum entered by Martha Soliz R.N. 11/24/17 14:59: dc - reviewed dc instructions with pt, scripts and paperwork provided, answering service agent assisted with packing belongings, including purse, bag, clothing, cell phone and clerk stenographer, given 10mg oxycodone IR w/juice and crackers prior to tsf home, hep lock dc'd Original Note: Addendum entered by Martha Soliz R.N. 11/24/17 11:16: RESP/MS - ambul w/RT and sat decr to 87% w/exhertion, RT will set up for home 02 and pt will need to f/u outpt for further studies, ambul with phys therapy, gait steady, pain controlled with earlier oxycodone and methadone. Original Note: AM NOTE - Up to chair for breakfast, complaint neck discomfort 8 on scale 0/10, wincing with discomfort, telfa dsg w/op site over cdi, wearing soft cervical collar, 1l 93%, RT in and RA trial shows 02 89-91%, pt no longer has a cpap at home, will need ambul w/RT to determine if qualifies for home 02, had RT speak to Kylie KING regarding 02 requirements, bs dim, given scheduled methadone and later prior to mobilization, given 10mg po oxycodone.
--- NOTE | 2017-11-24 10:28 | PM.DS.1 ---
History of Present Illness Date Patient Seen: 11/24/17 Time Patient Seen: 10:28 Chief complaint: [id number] C5-6 C6-7 *OPB* Narrative: [age] year old female with intractable pain from cervical disc herniation. They had failed conservative management and requested operative intervention. Risks and benefits of surgery were discussed and appropriate consents were obtained. Discharge Providers Consults: 11/22/17 13:04 Consult to Occupational Therapy Evaluate & Treat Comment: Physician Instructions: Evaluate and treat Consult to Physical Therapy Evaluate & Treat Comment: Physician Instructions: Evaluate and Treat 11/23/17 14:24 Consult to Respiratory Therapy Evaluate & Treat Comment: Physician Instructions: Evaluate and treat 11/24/17 07:38 Consult to Respiratory Therapy Evaluate & Treat Comment: Evaluate to set up for home O2 Physician Instructions: Evaluate and treat 11/24/17 07:39 Consult to Discharge Planning Routine Comment: can we set up home o2 Discharge provider: Diana Suh PA-C Discharge Date: 11/24/17 Summary Discharge Diagnosis: s/p C5-7 artificial disc replacement sleep apnea hypoxemia Hospital Course: Patient was admitted for C5 through [address] disc replacement with Dr. Diaz. Hospital course remarkable for hypoxemia. Patient was on O2 throughout her stay. She notes a history of sleep apnea. Pain was well controlled. She has been working with physical therapy throughout her stay. She has been eating and voiding without difficulty or assistance. Exam Vital Signs (past 8 hours): - 11/24/17 05:40 11/24/17 08:10 11/24/17 08:20 Temperature 98.0 F Pulse Rate 82 Respiratory Rate 18 Blood Pressure 145/74 H Pulse Oximetry 92 93 85 L 11/24/17 08:50 11/24/17 10:26 Temperature 97.4 F L Pulse Rate 90 Respiratory Rate 18 Blood Pressure 126/61 Pulse Oximetry 96 87 L Oxygen Delivery Method Room Air Oxygen Flow Rate 1.5 Narrative Exam Narrative: Patient lying in bed in no acute distress. She is alert and oriented x3. Dressing on anterior neck is CDI. Soft collar on. Lease Administration Analyst strength strong and equal. SILT throughout BUEs. Calves are soft, compressible, and nontender bilaterally. Pain well controlled. Denies difficulty swallowing. Discharge Plan Discharge Plan Patient Disposition: Home Discharge comment: DC home this afternoon Discharge Med Rec/Prescriptions Prescriptions: New tizanidine 4 mg Tablet 4 mg PO Q6H PRN (Reason: muscle spasticity) Qty: 30 RF: 0 oxycodone 5 mg Tablet See Label Instructions .ROUTE .COMPLEX PRN (Reason: Pain, Moderate (4-6)) Qty: 50 RF: 0 Continue nystatin 100,000 unit/gram Ointment See Label Instructions .ROUTE .COMPLEX RF: 0 tizanidine 4 mg Tablet See Label Instructions .ROUTE .COMPLEX RF: 0 methadone 10 mg Tablet 30 mg PO BID RF: 0 lisinopril 20 mg Tablet 20 mg PO DAILY RF: 0 oxycodone-acetaminophen 10-325 mg Tablet 1 tab PO Q6H PRN (Reason: Pain) RF: 0 aspirin 81 mg Tablet,Chewable 81 mg PO DAILY RF: 0 Follow up/Referrals: Brandon Diaz MD [Physician] - 12/05/17 1:20 pm (Follow up with FERNANDO Naranjo on 12/05/17 @ 1:20 pm @ [address] [phone]) Discharge Orders: Discharge (Order); Ordered 11/24/17 Ordered By: Diana Suh Provider Discharge Instructions Diet: Diet as Tolerated Activity: limited lift 10 lbs, soft collar for comfort Oxygen: home O2 set up, Please follow up with Dr. Naresh Page Skin/Wound/Dressing Care Dressing: may change dressing and shower POD #5 Visit Report/Discharge Packet Instructions: DI for Intervertebral Discectomy Stand Alone Forms: Surgery Discharge Discharge Data Attending Provider: Brandon Diaz
--- NOTE | 2017-11-24 11:15 | PT.IPTN ---
Current Diagnoses Other cervical disc displacement, unspecified cervical region (11/22/17) Strain of muscle, fascia and tendon at neck level, initial encounter (11/22/17) Surgery Performed Operation Date: 11/22/17 09:45 Actual Procedures p C5-6,C6-7 Anterior Discectomy and Artificial Disc Replacements - Brandon Diaz MD Physical Therapy Treatment Note M2 PT-IP Current Condition Start: 11/22/17 13:44 Freq: NEEDED Status: Active Protocol: Document 11/22/17 16:30 AB (Rec: 11/22/17 17:26 AB [id number]) Physical Therapy Current Condition Current Condition Evaluation Date 11/22/17 Treatment Diagnosis s/p C5-6, C6-7 discectomy; difficulty in walking Onset Date 11/22/17 Precautions Cervical Spine Precautions Soft Collar for Comfort No Heavy Lifting Log Roll M3 PT-IP Subjective Start: 11/22/17 13:44 Freq: NEEDED Status: Active Protocol: Document 11/24/17 11:15 GGD (Rec: 11/24/17 12:01 GGD [id number]) Subjective Physical Therapy Visit Type Type Treatment Note Visit Start Time 11:00 Visit Stop Time 11:15 Total Visit Minutes 15 Number of BIOLOGICAL CHEMIST Visits 2 Physical Therapy Visit Comments Patient Comments Pt states she is feeling better. Therapy Pain Assessment Pain When Pain Assessed At Rest Pain Present Pain Present Pain Reported Location Bilateral Posterior Neck Intensity 4 Scale Used Numeric (1 - 10) M4 PT-IP Mobility and Gait Start: 11/22/17 13:44 Freq: NEEDED Status: Active Protocol: Document 11/24/17 11:15 GGD (Rec: 11/24/17 12:01 GGD [id number]) PT-Bed Mobility Assessment Supine to Sit Supine to Sit Standby Assistance Head of Bed Elevated Bedrails Scooting Scooting to Edge of Bed Independent PT-Transfer Assessment Sit to and From Stand Sit to and from Stand Standby Assistance Equipment Transfer Assistive Device Gait Belt Transfers Transfer Destination Chair Gait Assessment Gait Gait Assistance Required: Standby Assistance Distance (Feet) 250 Able to Maintain Weight Bearing Status Yes During Gait Assistive Devices Assistive Device Gait Belt Orthotic/Prosthetic Devices or Brace: No Gait Deviations General Gait Pattern Antalgic Factors Limiting Gait Function Factors Limiting Gait Function Decreased Strength Pain Poor Balance Poor Safety Awareness Comments Gait Comments At rest O2 on 1.5 L at 92%, With gait 90-91% on RA. M5 PT-IP Objective Assessments Start: 11/22/17 13:44 Freq: NEEDED Status: Active Protocol: Document 11/22/17 16:30 AB (Rec: 11/22/17 17:26 AB [id number]) Orientation Orientation/Cognition Level of Alertness Alert Orientation Name Age Birthday Place Situation Safety Awareness Decreased Safety Awareness Gross Range of Motion Lower Extremity ROM Assessment Within Functional Limits Strength Lower Extremity Strength Assessment Within Functional Limits Muscle Tone Muscle Tone WNL Yes M6 PT-IP Treatment Start: 11/22/17 13:44 Freq: NEEDED Status: Active Protocol: Document 11/24/17 11:15 GGD (Rec: 11/24/17 12:01 GGD [id number]) Physical Therapy Treatment Education Education Provided Precautions Safety M7 PT-IP Assessment and Plan Start: 11/22/17 13:44 Freq: NEEDED Status: Active Protocol: Document 11/24/17 11:15 GGD (Rec: 11/24/17 12:01 GGD [id number]) PT Summary Assessment and Plan Summary Assessment Summary Pt improved with bed mobility. She needed less cues. She had no unsteadiness with gait or mobility. Her O2 sats maintain 90-91% on RA with ambulation. Frequency of Treatment Frequency Of Treatment Twice a Day Treatment Plan Other Recommendations and Next Treatment bed mobility, stair climbing, Focus monitor O2 Recommendations To Nursing Amount of Assist Needed 1 Person Assist Discharge Recommendations PT Discharge Recommendations Home with Assistance
--- NOTE | 2017-11-24 13:22 | OT.IP.TRT ---
Current Diagnoses Other cervical disc displacement, unspecified cervical region (11/22/17) Strain of muscle, fascia and tendon at neck level, initial encounter (11/22/17) Surgery Performed Operation Date: 11/22/17 09:45 Actual Procedures p C5-6,C6-7 Anterior Discectomy and Artificial Disc Replacements - Brandon Diaz MD Occupational Therapy Treatment Note M2 OT-IP Current Condition Start: 11/23/17 16:58 Freq: Status: Active Protocol: Document 11/23/17 14:40 [facility] (Rec: 11/23/17 17:12 [facility] [id number]) Occupational Therapy Current Condition Current Condition Evaluation Date 11/23/17 Treatment Diagnosis decreased self care,mobility s /p C5-6, C6-7 w/artificial discs,low O2 sats Diagnosis Onset Date 11/22/17 Post Operative Precautions Cervical Spine Precautions Soft Collar for Comfort No Heavy Lifting Log Roll M3 OT- IP Subjective and Pain Start: 11/23/17 16:58 Freq: Status: Active Protocol: Document 11/24/17 13:21 [facility] (Rec: 11/24/17 13:22 [facility] [id number]) OT- Subjective Occupational Therapy Visit Type Type Patient Refusal Notes Pt states in too much pain and not wanting to shower at this time and to do it at home. Pt will have assist at home fro all needs. Therefore, not able to see pt for OT treatment today.
--- NOTE | 2017-11-24 15:39 | SLP.IPNOTE ---
Spoke with patient on two occasions during this hospital visit regarding changes in swallowing post-op. Provided patient education via handout. Patient reports she is not eating much due to odynophagia, but is not interested in a swallow evaluation at this time.
== END 2017-11-24 15:35 | disposition home or self-care (01) ==
LOC: OR 08:14 → AC 08:14
PROVIDERS: Visit Provider Orthopaedic Surgery
PROC: (CPT 22856; principal; 2017-11-22 09:45)
DX: M50.122 Cervical disc disorder at C5-C6 level with radiculopathy (principal); S16.1XXA Strain of muscle, fascia and tendon at neck level, initial encounter; G47.33 Obstructive sleep apnea (adult) (pediatric); R09.02 Hypoxemia
CPT/HCPCS: 22858; 22856; 72040; 76001; 94618; 94760; 97116; 97162; 97165; 97530; 99406; C1776; J1170; J2060; J2405; J2704; J3010; J7613

== ENCOUNTER 2018-02-28 08:51 | Inpatient (IN) | payer MEDICARE, SELFPAY ==
[2017-11-22 13:04] VITALS: BMI 34.7
[2018-02-15 10:58] VITALS: BMI 35.0
[2018-02-28] VITALS (23 sets, daily range): BP systolic 91–169; BP diastolic 37–99; PULSE 74–101; RESP 12–21; TEMP 36.4–37.6; O2SAT 90–98; BMI 34.7
--- NOTE | 2018-02-28 | DI.RAD.S_ITS ---
PROCEDURE: XR LUMBAR SPINE 2-3V INDICATIONS: L3-4 XLIF WITH FUSION FINDINGS: 2 limited intraoperative fluoroscopically stored images of the lower lumbar spine were obtained for intraoperative hardware localization purposes. These images are not meant for diagnostic purposes. Intraoperative findings related to a lower lumbar fusion procedure are present. IMPRESSION: Intraoperative images obtained during the patient's lower lumbar fusion procedure. Dictated by: Sudhakar Eaton M.D. on 02/28/2018 at 15:54 Approved by: Sudhakar Eaton M.D. on 02/28/2018 at 15:55
[2018-02-28] MEDS: LACTATED RINGERS 1,000 ML 42 ML IV ×3 (09:35→14:22)
--- NOTE | 2018-02-28 09:42 | PM.PREOP ---
Pre-operative Note Interval Note History & Physical reviewed/Exam performed by Physician: Yes Changes to H&P: No
--- NOTE | 2018-02-28 09:53 | PM.OP.1 ---
Operative Date/Time/Diagnoses Date of procedure: 02/28/18 Time of procedure: 14:40 Pre-op diagnosis: Lumbar stenosis with radiculopathy History of lumbar fusion Lumbar spondylolisthesis Post-op diagnosis: same Procedure & Clinicians Procedure: L3-4 anterior fusion with cage L3-4 posterior fusion Removal of old hardware Placement of screws at L3 and L4 Iliac crest bone graft aspirate L3-4 revision laminectomy Use of microscope Placement of epidural catheter Same procedure as scheduled: Yes Indications: [age] year old female with intractable pain from stenosis. They had failed conservative management and requested operative intervention. Risks and benefits of surgery were discussed and appropriate consents were obtained. Surgeon: Brandon Diaz Fur Repair Inspector: Alejandra Frankel Anesthesia Type: General Operative Notes Findings: None Closure Type: primary Specimen(s): none sent Implants & Drains: NuVasive MAS Reline screws and XLIF cage Applied: catheter Estimated Blood Loss (mL): 20 Blood products transfused: none Procedure in detail: Patient was brought to the operating room and intubated on the table. Time-out was performed. They were then rolled over to the lateral decubitus position with the [id number]. The table was bent and they were taped down in the correct position. X-rays were taken to confirm a true AP and lateral. Preoperative antibiotics were given. The left flank was prepped and draped in standard sterile fashion. Using fluoroscopy, a 3 cm incision was made above the iliac crest. We bluntly dissected down with Metzenbaum scissors and split the 3 abdominal muscle layers. We dissected out the retroperitoneal space and using finger guidance, brought our 1st dilator down to the psoas muscle. Using neuromonitoring and fluoroscopy, we placed it through the psoas onto the L3-4 disc space in an anterior position and gradually pulled the dilator posteriorly along the disc space. We placed our guidewire and measured our depth for the retractor. We then dilated with the next 2 dilators and then placed our retractor over the dilators. Position was confirmed with fluoroscopy and the retractor was locked down to the bar. We opened up the retractor and checked with neuro monitoring. We then placed the ronal and again checked with neuro monitoring. The retractor was opened further and the ALL retractor was placed. An annulotomy was performed. We then performed a complete diskectomy with ring curette, pituitary, box osteotome. A Puente was advanced across the disc space under fluoroscopy to release the lateral annulus on the opposite side. We then used sequentially larger trials and confirmed under fluoroscopy. An XLIF cage was packed with Osteocell bone graft and impacted into the L3-4 disc space with fluoroscopy for the anterior fusion at this level. The wound was irrigated. The retractor was closed down. The ronal was removed. We carefully removed the retractor with direct visualization to make sure there was no neurovascular or abdominal injury. Final x-rays were taken. The muscle fascia was closed, superficial tissue was closed. The skin was closed. Sterile dressing was placed. The patient was then rolled over on the well-padded prone position on the Sampson table. Using fluoroscopy for localization, we made a 8 cm incision on the left. We used Bovie to split through the fascia. We dissected around her previous L4 and L5 screws. The set screws, rods and pedicle screws were removed. We then used neural monitoring and fluoroscopy to place Jamshidi needles down the L3 pedicle as well as in the previous L4 screw hole. These were changed out guidewires, tapped and then MAS Reline screws were placed. We opened up the retractor. We dissected medially to the previous scar tissue at L3-4 as well as at the posterolateral gutter. The previous fusion mass as well as the L3 transverse process were decorticated with a bur. We then brought in the microscope. A revision laminectomy was performed at L3-4 on the right with a bur and Kerrison rongeurs. We performed a near complete facetectomy for decompression. She had overgrown bone across the canal and we removed this until we were on the opposite side in the canal had been fully decompressed. Primarily, she was tight with a large amount of scar tissue in the subarticular region and just above this on the left. In the end we could place the ball probe across the canal out through the foramen and cephalad and everything was opened. The scar tissue prevented us from going further caudally. We then removed our retractor. We placed the Tulip heads, measured and placed and locked down our judy. The wound was copiously irrigated. A small stab incision was made over the PSIS and a Jamshidi needle was placed into the iliac crest and several mL of bone marrow was aspirated. This was mixed with our locally harvested bone graft as well as the remaining Osteocell and placed in the posterolateral gutter for fusion at L3-4. An epidural catheter was primed with 4mL of 0.5% bupivacaine, 100 mcg fentanyl, 4 mg Duramorph, 1 mg Stadol. The dura was depressed under the cephalad lamina with a ball probe and the epidural catheter was gently advanced 6 cm cephalad. The fascia was then closed. The epidural was then injected without resistance. The catheter was pulled and we closed more over the fascia. We then went to the right side. Again using fluoroscopy an 8 cm longitudinal incision was made on the right. We dissected through the fascia and removed the old hardware on the right side at L4 and L5. We then again placed percutaneous Jamshidi needles down the L3 pedicle and the old L4 screw hole. These were changed guidewires, tapped and the Reline MAS screws were placed. We placed a judy and locked down the set screws. The wounds were irrigated. The fascia was closed. Vancomycin powder was placed in the wounds. The superficial and skin were closed. Sterile dressing was placed. The patient was then rolled over, extubated, brought to the recovery room with no complications. Complications: none Condition: stable Disposition: PACU Plan for aftercare: Inpatient. Up with physical therapy.
[2018-02-28] MEDS: METHADONE 10 MG TABLET 30 MG PO ×2 (10:15→20:26)
[2018-02-28] MEDS: CLINDAMYCIN 900 MG/50 ML PIGGYBACK 50 MG IV ×2 (10:40→19:01)
--- NOTE | 2018-02-28 11:19 | SUR.OPER ---
Right lateral on padded OR table. Head on pillow, gel axillary roll, pillow to support left arm. Legs flexed, pillows between legs, gel pad under down leg and ankle. Multiple passes of 3 inch cloth tape across shoulder, hip, upper and lower legs to secure patient on OR table.
[2018-02-28] MEDS: ACETAMINOPHEN IV 1,000 MG/100 ML VIAL 400 MG IV (12:00)
[2018-02-28] MEDS: BUPIVACAINE 0.5% (PF) 4 ML, MORPHINE-PF 4 MG, BUTORPHANOL 1 MG, fentaNYL 100 MCG INJ (12:08)
[2018-02-28] MEDS: VANCOMYCIN 1,000 MG VIAL 1000 MG TOP (12:10)
[2018-02-28] MEDS: SODIUM CHLORIDE 0.9% 1,000 ML, GENTAMICIN 80 MG IRR (12:10)
[2018-02-28] MEDS: HYDROMORPHONE 2 MG INJ 1 MG IV ×2 (15:00→17:46)
[2018-02-28] MEDS: LORazepam 2 MG/ML SYRINGE 0.25 MG IV ×2 (15:03→15:58)
[2018-02-28] MEDS: fentaNYL 100 MCG/2 ML INJ IV ×2 (15:07→15:47)
--- NOTE | 2018-02-28 15:49 | SUR.PHASEI ---
pt arrived to PACU writhing in pain and crying and yelling. Dr. Frederick gave pt 1 mg IV Dilaudid. Pt continued to complain of pain. Lorazapam given along with Fentanyl and Dilaudid. Pt had told MD prior to surgery that she had to have oxygen after her surgery. pt was wheezing after surgery and then respiratory therapy was called and dual neb treatment was given . Per resp. Pt's lungs now clear. Pt states she was a smoker prior to her surgery. Pt now appears more comfortable sleeping off and on. Although, when asked if pt wakes up she states her pain is a 10. pt sleeping off and on now. pt respirations even and unlabored. Weaning pt's O2 down .
[2018-02-28] MEDS: HYDROMORPHONE 0.5 MG INJ IV (16:33)
[2018-02-28] MEDS: LACTATED RINGERS 1,000 ML 125 ML IV (17:40)
[2018-02-28] MEDS: DOCUSATE 100 MG CAPSULE PO (20:26)
[2018-02-28] MEDS: TIZANIDINE 4 MG TABLET PO (20:26)
[2018-02-28] MEDS: SENNOSIDES 8.6 MG TABLET 17.2 MG PO (20:27)
[2018-02-28] MEDS: OXYCODONE IR 10 MG TABLET PO (20:30)
--- NOTE | 2018-02-28 21:15 | PC.ADMIT ---
Admission Note: Pt arrived to floor at 1645. Pt sleeps, but arouses and whimpers and cries out in pain. PT given many pain meds in PACU. Pt placed on oxygen 2L. Pt on cont. pox. fluids started. pt oriented to room and hospital procedures. Pt asked what she needs and pt dozes to sleep and snores while discussing medications. Pt states that she is uncomfortable. PT states she doesn't know how to get comfortable. PT frequently prays out loud, stating please god, let me get through this night. Pt states she wishes she had backed out of the surgery. Pt bed alarm on. pt repositioned frequently bc she states she cannot get comfortable. will continue to monitor.
[2018-02-28] MEDS: HYDROMORPHONE 1 MG INJ 0.5 MG IV (23:54)
[2018-03-01] VITALS (8 sets, daily range): BP systolic 89–129; BP diastolic 49–69; PULSE 83–91; RESP 18–20; TEMP 36.3–37.5; O2SAT 89–96
[2018-03-01] MEDS: LACTATED RINGERS 1,000 ML 125 ML IV (01:20)
[2018-03-01] MEDS: OXYCODONE IR 10 MG TABLET PO ×6 (01:23→20:37)
[2018-03-01] MEDS: CLINDAMYCIN 900 MG/50 ML PIGGYBACK 50 MG IV (02:25)
[2018-03-01] MEDS: HYDROMORPHONE 1 MG INJ 0.5 MG IV ×2 (04:47→12:22)
[2018-03-01 05:47] LABS: Hematocrit 37.9 % (36-46); Hemoglobin 12.6 g/dL (12.0-16.0)
--- NOTE | 2018-03-01 07:52 | PM.PNPO.1 ---
Subjective Date Patient Seen: 03/01/18 Time Patient Seen: 07:52 Interval history: Rough night. Pain 8/10, all across the low back. Legs are doing well. Exam Vital Signs (past 8 hours): - 03/01/18 04:30 Temperature 98.6 F Pulse Rate 91 H Respiratory Rate 20 Blood Pressure 125/69 Pulse Oximetry 95 Oxygen Delivery Method Nasal Cannula Oxygen Flow Rate 1 Const Orientation: alert and oriented x3 Other: Moderate drainage on posterior dressing. Lateral dressing clean. 5/5 motor both lower extremities Objective Labs Result Diagrams: 03/01/18 05:20 Labs: Laboratory Results - last 24 hr 03/01/18 05:20 Hgb 12.6 Hct 37.9 Assessment & Plan Post-op Postoperative Procedures Operation Date: 02/28/18 10:15 Actual Procedures Side Surgeon p L3-4 revision Laminectomy, Ant/Post Instru. Fusion & bone graft Brandon Diaz MD She is doing as expected after her revision surgery and fusion. Mobilize today with physical therapy. Anticipate discharge in the next few days. I am going to add Valium for the spasms.
[2018-03-01] MEDS: diazePAM 5 MG TABLET PO ×2 (08:07→17:03)
[2018-03-01] MEDS: LISINOPRIL 20 MG TABLET PO (09:57)
[2018-03-01] MEDS: DOCUSATE 100 MG CAPSULE PO ×2 (09:57→20:37)
[2018-03-01] MEDS: ASPIRIN EC 81 MG TABLET PO (09:58)
[2018-03-01] MEDS: METHADONE 10 MG TABLET 30 MG PO ×2 (10:03→20:37)
--- NOTE | 2018-03-01 10:12 | PT.IIE ---
Current Diagnoses Opioid use, unspecified, uncomplicated (02/28/18) Major depressive disorder, single episode, unspecified (02/28/18) Sleep apnea, unspecified (02/28/18) Other chronic pain (02/28/18) Spondylolisthesis, lumbar region (02/28/18) Spinal stenosis, lumbar region with neurogenic claudication (02/28/18) Arthrodesis status (02/28/18) Surgery Performed Operation Date: 02/28/18 10:15 Actual Procedures p L3-4 revision Laminectomy, Ant/Post Instru. Fusion & bone graft - Brandon Diaz MD Surgical History (Last Updated 02/15/18 @ 11:03 by Vandana Shearer RN) History of abdominal surgery (Acute) History of cholecystectomy (Acute) History of lumbar fusion (Acute) History of lumbar laminectomy (Acute) History of tonsillectomy (Acute) Hx of bladder repair surgery (Acute) Hx of cervical spine surgery (Acute 11/22/17) Hx of tubal ligation (Acute) S/P removal of left ovary (Acute) Medical History (Last Updated 02/15/18 @ 11:14 by Vandana Shearer RN) Cervical disc herniation (Acute) Chronic, continuous use of opioids (Acute) Depression (Acute) Diabetes mellitus (Acute) GERD (gastroesophageal reflux disease) (Acute) History of cystitis (Acute) History of hysterectomy (Acute) Hyperlipidemia (Acute) Hypertension (Acute) Other chronic pain (Acute) Pain (Acute) Pancreatitis (Acute) Sleep apnea (Acute) Spinal headache (Acute) Spinal stenosis of cervical region (Acute) Strain of neck muscle (Acute) Physical Therapy Inpatient Evaluation/Re-Eval M1 PT/OT-IP Prior Functional Status Start: 03/01/18 12:52 Freq: NEEDED Status: Active Protocol: Document 03/01/18 10:12 [facility] (Rec: 03/01/18 12:56 [facility] [id number]) Medical Review Prior Functional Status Medical History Reviewed Yes Communication able to make needs known Mobility and Gait pt stated that she is independent with all mobilities and ambulation without AD Social History Household Members family Living Arrangements House Number of Floors (Floors) One Floor Number of Stairs To Enter/Railing? 1 step entry Home Environment High Toilet Tub/Shower Home Equipment Front Wheel Walker Four Wheel Walker Straight Cane Tub Transfer Bench Ceo [employer] Founder Bed Rails Grab Bars In Shower Additional Social History Comment stated that she lives with her sister ( a PT) and sister's boyfriend. stated that there can be somebody 13/09 to assist her. M2 PT-IP Current Condition Start: 03/01/18 12:52 Freq: NEEDED Status: Active Protocol: Document 03/01/18 10:12 AB (Rec: 03/01/18 12:56 AB [id number]) Physical Therapy Current Condition Current Condition Evaluation Date 03/01/18 Treatment Diagnosis s/p L3-4 anterior /post fusion and lami; difficulty in walking Onset Date 02/28/18 Precautions Lumbar Precautions Log Roll No Twisting Limit Bending Lifting Restriction of 10 lbs Gait Belt above Incisional Area M3 PT-IP Subjective Start: 03/01/18 12:52 Freq: NEEDED Status: Active Protocol: Document 03/01/18 10:12 [facility] (Rec: 03/01/18 12:56 AB [id number]) Subjective Physical Therapy Visit Type Type Initial Evaluation Visit Start Time 10:12 Visit Stop Time 10:46 Total Visit Minutes 34 Number of HEAD WAITER Visits 0 Physical Therapy Visit Comments Patient Comments c/o too much pain and stated that she does not know if she can do PT Therapy Pain Assessment Pain When Pain Assessed At Rest Pain Present Pain Present Pain Reported Location Back Intensity 8 Scale Used Numeric (1 - 10) Pain Behaviors Crying Facial Grimacing Guarding Pain Management Techniques Apply Cold Re-positioning Timing of Activity with Medications M4 PT-IP Mobility and Gait Start: 03/01/18 12:52 Freq: NEEDED Status: Active Protocol: Document 03/01/18 10:12 AB (Rec: 03/01/18 13:03 AB [id number]) PT-Bed Mobility Assessment Rolling Type of Rolling Log Rolling Level of Assist Maximal Assistance 1 Person Assistance Supine to Sit Supine to Sit Maximum Assistance 2 Person Assistance Bedrails PT-Transfer Assessment Sit to and From Stand Sit to and from Stand Maximum Assistance 1 Person Assistance 2 Person Assistance Use of Upper Extremities Equipment Transfer Assistive Device Gait Belt Front Wheeled Walker Orthotic/Prosthetic Devices or Brace: No Transfers Transfer Destination Chair Transfer Technique Stand Step Pivot Transfer Ability Level of Assist Maximum Assistance 1 Person Assistance 2 Person Assistance Use of Upper Extremities Comments Mobility Comments pt with c/o increase pain and hesistant to participate. educated on importance of mobility and pt agreed. pt required increase time and several attempts to sit up on EOB. Nurse present and assist PT during tx session. pt was able to take steps to transfer to the chair using FWW max A x 1-2 and max cues but unable to do any further ambulation due to c/o pain. pt agreed to stay seated on chair. positioned pt on chair . call light and table placed within reach. ice pack provided. PT-Balance Assessment Sitting Balance and Reactions Static Sitting Balance Ability Good Dynamic Sitting Balance Ability Good Standing Balance and Reactions Static Standing Balance Ability Fair Dynamic Standing Balance Ability Poor Device Used FWW M5 PT-IP Objective Assessments Start: 03/01/18 12:52 Freq: NEEDED Status: Active Protocol: Document 03/01/18 10:12 AB (Rec: 03/01/18 13:03 AB [id number]) Orientation Orientation/Cognition Level of Alertness Alert Orientation Name Age Birthday Month Date Year Day of Week Place Situation Safety Awareness Understands Safety Issues Gross Range of Motion Lower Extremity ROM Assessment Within Functional Limits Strength Lower Extremity Strength Assessment Bilaterally Impaired Comments Strength Comments RLE 4-/5 LLE 3+/5 Coordination Assessment Gross Coordination Gross Coordination WNL Sensation Assessment Sensation Gross Sensation WNL Muscle Tone Muscle Tone WNL Yes M6 PT-IP Treatment Start: 03/01/18 12:52 Freq: NEEDED Status: Active Protocol: Document 03/01/18 10:12 AB (Rec: 03/01/18 13:03 AB [id number]) Physical Therapy Treatment Education Education Provided Precautions Weight Bearing Status Post-Op Packet Safety Other Treatments Other Treatment Performed educated on back precautions and log roll bed mobility M7 PT-IP Assessment and Plan Start: 03/01/18 12:52 Freq: NEEDED Status: Active Protocol: Document 03/01/18 10:12 AB (Rec: 03/01/18 13:03 AB [id number]) PT Summary Assessment and Plan Potential Rehabilitation Potential Fair Status of Condition at Evaluation Evolving Summary Impairments Pain ROM Strength Balance Coordination Sensation Tone Cognition Bed Mobility Transfers Gait Activity Tolerance Assessment Summary pt requiring 2 person assist with mobility and unable to tolerate much activity due to c/o increase pain. at this time, pt will require SNF rehab to improve mobility prior to d/c home. Goals Bed Mobility Goal Standby Assistance Transfer Goal Standby Assistance Front Wheeled Walker Gait Goal Standby Assistance Front Wheel Walker Gait Distance 100 Other Goals up/down 1 step using FWW Days to Meet Goals 5 Frequency of Treatment Frequency Of Treatment Twice a Day Treatment Plan Physical Therapy Treatment Plan Bed Mobility Training Transfer Training Gait Training Therapeutic Exercise Balance Retraining Post Op Education Discharge Planning Hot or Cold Pack Neuromuscular Re-ed Coordination Retraining Manual Therapy Other Recommendations and Next Treatment ambulation Focus Recommendations To Nursing Amount of Assist Needed 2 Person Assist Discharge Recommendations PT Discharge Recommendations SNF Rehab
[2018-03-01] MEDS: hydrOXYzine pamoate 25 MG CAPSULE PO (13:52)
--- NOTE | 2018-03-01 15:48 | PT.IPTN ---
Current Diagnoses Opioid use, unspecified, uncomplicated (02/28/18) Major depressive disorder, single episode, unspecified (02/28/18) Sleep apnea, unspecified (02/28/18) Other chronic pain (02/28/18) Spondylolisthesis, lumbar region (02/28/18) Spinal stenosis, lumbar region with neurogenic claudication (02/28/18) Arthrodesis status (02/28/18) Surgery Performed Operation Date: 02/28/18 10:15 Actual Procedures p L3-4 revision Laminectomy, Ant/Post Instru. Fusion & bone graft - Brandon Diaz MD Physical Therapy Treatment Note M2 PT-IP Current Condition Start: 03/01/18 12:52 Freq: NEEDED Status: Active Protocol: Document 03/01/18 10:12 AB (Rec: 03/01/18 12:56 AB [id number]) Physical Therapy Current Condition Current Condition Evaluation Date 03/01/18 Treatment Diagnosis s/p L3-4 anterior /post fusion and lami; difficulty in walking Onset Date 02/28/18 Precautions Lumbar Precautions Log Roll No Twisting Limit Bending Lifting Restriction of 10 lbs Gait Belt above Incisional Area M3 PT-IP Subjective Start: 03/01/18 12:52 Freq: NEEDED Status: Active Protocol: Document 03/01/18 15:48 AB (Rec: 03/01/18 16:13 AB [id number]) Subjective Physical Therapy Visit Type Type Treatment Note Visit Start Time 15:48 Visit Stop Time 16:05 Total Visit Minutes 17 Number of FISHER OYSTER Visits 0 Physical Therapy Visit Comments Patient Comments pt hesitant to do PT but stated that she can sit on the EOB and see how she feels Therapy Pain Assessment Pain When Pain Assessed At Rest Pain Present Pain Present Pain Reported Location Back Intensity 6 Scale Used c/o increase pain with mobility Pain Management Techniques Re-positioning Timing of Activity with Medications M4 PT-IP Mobility and Gait Start: 03/01/18 12:52 Freq: NEEDED Status: Active Protocol: Document 03/01/18 15:48 AB (Rec: 03/01/18 16:13 AB [id number]) PT-Bed Mobility Assessment Supine to Sit Supine to Sit Minimal Assistance 1 Person Assistance Bedrails Sit to Supine Sit to Supine Minimal Assistance 1 Person Assistance Bedrails PT-Transfer Assessment Sit to and From Stand Sit to and from Stand Minimal Assistance Equipment Transfer Assistive Device Gait Belt Front Wheeled Walker Gait Assessment Gait Gait Assistance Required: Contact Guard Assist Minimum Assistance Distance (Feet) 40 Able to Maintain Weight Bearing Status Yes During Gait Assistive Devices Assistive Device Gait Belt Front Wheeled Walker Orthotic/Prosthetic Devices or Brace: No Gait Deviations General Gait Pattern Antalgic Decreased Stride Length Decreased Feet Clearance Factors Limiting Gait Function Factors Limiting Gait Function Decreased Activity Tolerance Decreased Strength Limited Range of Motion Pain Poor Balance Poor Safety Awareness Comments Gait Comments pt completed ambulation using FWW requiring min A initially and only CGA towards end of ambulation. pt requested to lay back in bed after ambulation due to increase back pain after mobilization. M5 PT-IP Objective Assessments Start: 03/01/18 12:52 Freq: NEEDED Status: Active Protocol: Document 03/01/18 10:12 AB (Rec: 03/01/18 13:03 AB [id number]) Orientation Orientation/Cognition Level of Alertness Alert Orientation Name Age Birthday Month Date Year Day of Week Place Situation Safety Awareness Understands Safety Issues Gross Range of Motion Lower Extremity ROM Assessment Within Functional Limits Strength Lower Extremity Strength Assessment Bilaterally Impaired Comments Strength Comments RLE 4-/5 LLE 3+/5 Coordination Assessment Gross Coordination Gross Coordination WNL Sensation Assessment Sensation Gross Sensation WNL Muscle Tone Muscle Tone WNL Yes M6 PT-IP Treatment Start: 03/01/18 12:52 Freq: NEEDED Status: Active Protocol: Document 03/01/18 15:48 AB (Rec: 03/01/18 16:13 AB [id number]) Physical Therapy Treatment Education Education Provided Precautions Safety M7 PT-IP Assessment and Plan Start: 03/01/18 12:52 Freq: NEEDED Status: Active Protocol: Document 03/01/18 15:48 AB (Rec: 03/01/18 16:13 AB [id number]) PT Summary Assessment and Plan Potential Rehabilitation Potential Fair Summary Impairments Pain ROM Strength Balance Coordination Sensation Bed Mobility Transfers Gait Activity Tolerance Progress Towards Goals Slow Progress due to Pain Assessment Summary pt doing better this afternoon compared to this morning and was able to ambulate using FWW CGA to min A. d/c plan depending on level of assistance at d/c. pt at this time is progress and will likely improve during hospital stay. will continue to assess. Goals Bed Mobility Goal Standby Assistance Transfer Goal Standby Assistance Front Wheeled Walker Gait Goal Standby Assistance Front Wheel Walker Gait Distance 100 Other Goals up/down 1 step using FWW Days to Meet Goals 5 Frequency of Treatment Frequency Of Treatment Twice a Day Treatment Plan Physical Therapy Treatment Plan Bed Mobility Training Transfer Training Gait Training Therapeutic Exercise Balance Retraining Post Op Education Discharge Planning Hot or Cold Pack Neuromuscular Re-ed Coordination Retraining Manual Therapy Other Recommendations and Next Treatment ambulation Focus Recommendations To Nursing Amount of Assist Needed 1 Person Assist Discharge Recommendations PT Discharge Recommendations Home with 24/7 Assist SNF Rehab Other Discharge Recommendations SNF vs home with 24/7 and may possibly require homehealth PT
--- NOTE | 2018-03-01 16:15 | OT.IP.EVAL ---
Current Diagnoses Opioid use, unspecified, uncomplicated (02/28/18) Major depressive disorder, single episode, unspecified (02/28/18) Sleep apnea, unspecified (02/28/18) Other chronic pain (02/28/18) Spondylolisthesis, lumbar region (02/28/18) Spinal stenosis, lumbar region with neurogenic claudication (02/28/18) Arthrodesis status (02/28/18) Surgery Performed Operation Date: 02/28/18 10:15 Actual Procedures p L3-4 revision Laminectomy, Ant/Post Instru. Fusion & bone graft - Brandon Diaz MD Past Medical History (Last Updated 02/15/18 @ 11:14 by Vandana Shearer RN) Cervical disc herniation (Acute) Chronic, continuous use of opioids (Acute) Depression (Acute) Diabetes mellitus (Acute) GERD (gastroesophageal reflux disease) (Acute) History of cystitis (Acute) History of hysterectomy (Acute) Hyperlipidemia (Acute) Hypertension (Acute) Other chronic pain (Acute) Pain (Acute) Pancreatitis (Acute) Sleep apnea (Acute) Spinal headache (Acute) Spinal stenosis of cervical region (Acute) Strain of neck muscle (Acute) Surgical History (Last Updated 02/15/18 @ 11:03 by Vandana Shearer RN) History of abdominal surgery (Acute) History of cholecystectomy (Acute) History of lumbar fusion (Acute) History of lumbar laminectomy (Acute) History of tonsillectomy (Acute) Hx of bladder repair surgery (Acute) Hx of cervical spine surgery (Acute 11/22/17) Hx of tubal ligation (Acute) S/P removal of left ovary (Acute) Occupational Therapy Inpatient Evaluation/Re-Eval M1 PT/OT-IP Prior Functional Status Start: 03/01/18 12:52 Freq: NEEDED Status: Active Protocol: Document 03/01/18 16:15 PJM (Rec: 03/01/18 16:38 PJM [id number]) Medical Review Prior Functional Status Medical History Reviewed Yes Communication WNL Mobility and Gait Pt states that she is independent with all mobilities and ambulation without AD Activities of Daily Living and IADL's Pt states she is independent with all self care and does most of the cooking at home. She does her own laundry and shares institutional commodity analyst with her family. Pt drives when feeling well. Social History Household Members family Living Arrangements House Number of Floors (Floors) One Floor Number of Stairs To Enter/Railing? 1 stair to enter with rail Home Environment High Toilet Walk in Shower Home Equipment Front Wheel Walker Four Wheel Walker Shower Seat with Backrest Long Handled Sponge Long Handled Shoe Horn Embedded Linux Engineer Sock Aid Bed Rails Grab Bars Near Toilet Grab Bars In Shower Employment Status Retired Additional Social History Comment Pt has had 4 previous back surgeries and a C spine surgery 11/22/17. Pt lives with her sister who is a P.T. and works days, her sister's boyfriend (does not work) and her mother (unable to provide assist). M2 OT-IP Current Condition Start: 03/01/18 16:23 Freq: Status: Active Protocol: Document 03/01/18 16:15 LOVE (Rec: 03/01/18 16:38 [facility] [id number]) Occupational Therapy Current Condition Current Condition Evaluation Date 03/01/18 Treatment Diagnosis decreased self care,mobility s /p L3-4 revision lami w/ L3-4 ant/post fusion Diagnosis Onset Date 02/28/18 Post Operative Precautions Lumbar Precautions Log Roll No Twisting Limit Bending Lifting Restriction of 10 lbs Gait Belt above Incisional Area M3 OT- IP Subjective and Pain Start: 03/01/18 16:23 Freq: Status: Active Protocol: Document 03/01/18 16:15 LOVE (Rec: 03/01/18 16:38 [facility] [id number]) OT- Subjective Occupational Therapy Visit Type Type Initial Evaluation Visit Start Time 15:55 Visit Stop Time 16:15 Total Visit Minutes 20 Notes Pt's pain level limiting participation this session. Occupational Therapy Visit Comments Patient Comments This is really painful. Patient/Caregiver Goals to go home OT Pain Assessment Pain When Pain Assessed After Treatment Pain Present Pain Present Pain Reported Location Back Intensity 8 Scale Used Numeric (1 - 10) Description Aching Acute Pain Behaviors Facial Grimacing Guarding Restlessness Management Techniques Distraction Re-positioning Timing of Activity with Medications M4 OT- IP ADL's Start: 03/01/18 16:23 Freq: Status: Active Protocol: Document 03/01/18 16:15 PJMelida (Rec: 03/01/18 16:38 [facility] [id number]) OT [id number] General Evaluation Self-Feeding Ability Independent OT ADL-Grooming General Evaluation Grooming Ability Standby Assistance Comments OT Grooming Comments after set up in bed or chair OT ADL-Oral Care Comments Oral Care Comments after set up in bed or chair OT ADL-Dressing General Eval Lower Body Dressing Ability Total Assistance Assistive Devices Dressing Assistive Devices Long Handled Shoe Horn Embedded Linux Engineer Sock Aid Comments OT Dressing Comments Pt states she has necessary lower body dressing equipt. She does not like sock aid and usually wears slippers without socks. OT ADL-Toileting General Evaluation Toileting Ability Total Assistance Areas Needing Assistance Empty Catheter or Colostomy Comments OT Toileting Comments pt still has ragland in place OT ADL-Bathing Comments OT Bathing Comments to be assessed as activity tolerance improves M5 OT- IP IADL's Start: 03/01/18 16:23 Freq: Status: Active Protocol: Document 03/01/18 16:15 PJ (Rec: 03/01/18 16:38 [facility] [id number]) OT-Instrumental Activities of Daily Living Deficits IADL Deficits Identified Deficits Home Safety Awareness Awareness of Need for Assistance at Home Good Awareness Ability to Problem Solve Emergency Able to Problem Solve Situations Medication Management Medication Management No Deficits Identified Money Management Money Management No Deficits Identified Meal Preparation Meal Preparation Caregiver Provides Assist Meal Preparation Comments family to assist until pt able Coagulating Operator Coagulating Operator Caregiver Provides Assist Coagulating Operator Comments family to assist until pt able Driving Driving Caregiver Provides Assist Driving Comments family to assist until pt able M6 OT- IP Functional Cognition Start: 03/01/18 16:23 Freq: Status: Active Protocol: Document 03/01/18 16:15 PJMelida (Rec: 03/01/18 16:38 [facility] [id number]) Cognitive Factors Limiting Selfcare Function Cognitive Ability Level of Alertness Drowsy Patient Orientation Name Age Birthday Month Date Year Day of Week Place Situation Attention Span Ability Capable of Focused Attention Unable to Sustain Attention Ability to Follow Commands Able to Follow One Step Commands Memory Description No Deficits Noted Cognitive Comments Cognitive Assessment Comments Pt drowsy and distracted by high pain level, but oriented and recalls lumbar spine precautions. OT- Vision and Hearing OT- Hearing Assessment OT- Hearing Assessment WFL OT- Vision Assessment Visual Acuity WFL Vision Assessment Comments Pt does not wear glasses. M7 OT- IP Mobility and Balance Start: 03/01/18 16:23 Freq: Status: Active Protocol: Document 03/01/18 16:15 PJM (Rec: 03/01/18 16:38 [facility] [id number]) OT- Bed Mobility Assessment Rolling Type of Rolling Roll to Right Level of Assistance Contact Guard Assistance 1 Person Assistance Sit to Supine Sit to Supine Assist Standby Assistance 1 Person Assistance Bedrails Scooting Scooting to Edge of Bed Standby Assistance OT-Transfer Assessment Sit to and From Stand Sit to and from Stand Contact Guard Assistance Transfers Transfer Ability Contact Guard Assistance 1 Person Assistance Use of Upper Extremities Technique Transfer Destination Chair Transfer Technique Stand Step Pivot Devices Transfer Assistive Devices Gait Belt Front Wheeled Walker Comments Mobility Comments Pt needs mod verbal cues for log roll technique and motor planning. OT- Gait Assessment Gait Gait Assistance Required: Contact Guard Assist Assistive Devices Assistive Device Gait Belt Front Wheeled Walker Comments Gait Ability Comments see P.T. notes OT- Balance Assessment Sitting Balance and Reactions Static Sitting Balance Ability Good Dynamic Sitting Balance Ability Fair Standing Balance and Reactions Static Standing Balance Ability Good M8 OT- IP Objective Assessments Start: 03/01/18 16:23 Freq: Status: Active Protocol: Document 03/01/18 16:15 PJM (Rec: 03/01/18 16:38 [facility] [id number]) OT Gross Range of Motion Upper Extremity Range of Motion Assessment Within Functional Limits OT Strength Upper Extremity Strength Assessment Within Functional Limits OT- Coordination Assessment Comments Coordination Comments BUE WFL OT-Muscle Tone Assessment Muscle Tone WNL Yes OT Sensation Assessment Comments Summary Comments Pt denies sensory deficits in BUE's Edema Edema Absent M9 OT- IP Assessment and Plan Start: 03/01/18 16:23 Freq: Status: Active Protocol: Document 03/01/18 16:15 PJM (Rec: 03/01/18 16:38 [facility] [id number]) OT Summary Assessment and Plan Potential Rehabilitation Potential Good Analytic Complexity at Evaluation Low Summary OT Impairments Pain Functional Mobility Grooming Dressing Toileting Bathing Toilet Transfers Shower Transfers Assessment Summary Low complexity OT assessment completed with emphasis on self care skills within lumbar spine precautions. Pt's high pain level limiting participation and concentration this session, but pt is oriented and familiar with adapted ADL techniques from 4 previous back surgeries. Pt currently has performance deficits in activity tolerance, all functional mobility/transfers, standing grooming, lower body dressing, bathing and toileting. Pt will benefit from OT services here to address the goals below. Pt would like to d/c home with family assist if she continues to improve here. Goals Grooming Goal Independent Dressing Goal Standby Assistance Long Handled Shoe Horn Embedded Linux Engineer Sock Aid Toileting Goal Independent Bathing Goal Standby Assistance Toilet Transfer Goal Independent Shower Transfer Goal Standby Assistance Patient/Caregiver Education Goal Demonstrate Post-Op Precautions Demonstrate Energy Conservation and Pacing Caregiver Independent Assisting Patient Days to Meet Goals 4 Frequency of Treatment Frequency Of Treatment Once a Day Treatment Plan OT Treatment Plan ADL Training Functional Mobility Patient/Family Education Discharge Planning Discharge Recommendations OT Discharge Recommendations Home with Assistance Home Equipment Needs pt has all necessary equipt
[2018-03-01] MEDS: SENNOSIDES 8.6 MG TABLET 17.2 MG PO (20:37)
[2018-03-02] VITALS (9 sets, daily range): BP systolic 91–117; BP diastolic 37–68; PULSE 82–93; RESP 16–21; TEMP 36.9–37.4; O2SAT 90–96
[2018-03-02] MEDS: OXYCODONE IR 10 MG TABLET PO ×6 (00:47→21:21)
--- NOTE | 2018-03-02 06:53 | PC.NURSE ---
patient set off continuous pulse oximetry alarm. Sats at time 88%. Repositioned patient for comfort. Sats still low 88%. turned O2 up to 3L, discovered O2 tubing had popped off connector. Sats recovered quickly, 95% on 3L. Patient desired 3L left on, states uses 3L at home.
--- NOTE | 2018-03-02 07:54 | P.PN_ITS ---
Subjective Date Patient Seen: 03/02/18 Interval history: Patient seen bedside s/p L3-4 anterior fusion with cage with L3-4 posterior fusion, removal of old hardware, placement of screws at L3 and L4 , and L3-[address] Diaz on 02/28/18. Patient is POD # 2. She is still complaining of pain, but she was on chronic pain management prior to surgery. She denies CP, SOB, numbness/tingling, or calf pain. Exam Vital Signs (past 8 hours): - 03/02/18 00:15 03/02/18 03:40 Temperature 99.4 F 98.8 F Pulse Rate 91 H 85 Respiratory Rate 21 20 Blood Pressure 91/37 L 106/61 Pulse Oximetry 90 L 95 Oxygen Delivery Method Room Air Oxygen Flow Rate 0 Narrative Exam Narrative: WDWN NAD A&Ox3. Dressing is clean, dry, and intact with no signs of drainage. Minor irritation from tape noted. Calf is soft and compressible and no focal deficits noted. Objective Labs Result Diagrams: 03/01/18 05:20 Assessment & Plan Post-op Postoperative Procedures Operation Date: 02/28/18 10:15 Actual Procedures Side Surgeon p L3-4 revision Laminectomy, Ant/Post Instru. Fusion & bone graft Brandon Diaz MD 1. POD #1 s/p above procedure--continue pain control, PT, add steroid dose to help with pain. Dispo-probable discharge home tomorrow Quality VTE Deep Vein Thrombosis/Pulmonary Embolism Present on Admission: No
[2018-03-02] MEDS: METHADONE 10 MG TABLET 30 MG PO ×2 (08:43→20:50)
[2018-03-02] MEDS: MAGNESIUM HYDROXIDE 30 ML UDC PO (08:43)
[2018-03-02] MEDS: DOCUSATE 100 MG CAPSULE PO ×2 (08:43→20:50)
[2018-03-02] MEDS: HYDROMORPHONE 1 MG INJ 0.5 MG IV (08:43)
[2018-03-02] MEDS: ASPIRIN EC 81 MG TABLET PO (08:43)
--- NOTE | 2018-03-02 09:35 | PC.NURSE ---
Addendum entered by Martha Soliz R.N. 03/02/18 14:26: PAIN/ - given 25mg po vistaril after lunch as not yet timing for oxycodone, discussed dosage, timing and then given 10mg po oxycodone for back discomfort 8 on scale 0/10, as pt mobilized well with phys therapy earlier and ambul hallway, ragland balloon deflated and dc'd w/o difficulty, call light available, hat in br. Original Note: Addendum entered by Martha Soliz R.N. 03/02/18 11:07: MED - spoke to L[place] in pharmacy re depomedrol IM order, states prefers clarification from PA prior to admin, fax sent to Miryam Bowens in surg. Original Note: Addendum entered by Martha Soliz R.N. 03/02/18 11:01: MS/INTEG - pt up to dangle position, has red outline and burning sensation at the telfa margins, dsg folded 4x4 are saturated after removal, cleaned surrounding skin, sutured incisions intact, no active drainage, applied coversite, given 10mg oxycodone for pain 8 on scale 0/10, using fww, tsf to chair. Original Note: Addendum entered by Martha Soliz R.N. 03/02/18 10:42: PAIN - pt much more comfortable after earlier dilaudid and her scheduled methadone, not yet ready for oxycodone IR, discussed mobilization with phys therapy, pt would like to wait for ragland out until after mobilizing to see how she manages. Original Note: AM NOTE - pt awakens easily at shift report, moaning, asking pain medication, when informed had oxycodone only 1/12 hours ago?, reports pain 8 on scale 0/10 back, states I'm hurting bad, at breakfast discussed medications, dosages, timing and admin 0.5mg iv dilaudid now, given her scheduled methadone, 02 sat 95% 3l and she does use 3l at home, ragland cath with clear yellow urine, footie scd on, bp 96/55 and her lisinopril was held, I hold it at home when it is low.
--- NOTE | 2018-03-02 11:39 | PT.IPTN ---
Current Diagnoses Opioid use, unspecified, uncomplicated (02/28/18) Major depressive disorder, single episode, unspecified (02/28/18) Sleep apnea, unspecified (02/28/18) Other chronic pain (02/28/18) Spondylolisthesis, lumbar region (02/28/18) Spinal stenosis, lumbar region with neurogenic claudication (02/28/18) Arthrodesis status (02/28/18) Surgery Performed Operation Date: 02/28/18 10:15 Actual Procedures p L3-4 revision Laminectomy, Ant/Post Instru. Fusion & bone graft - Brandon Diaz MD Physical Therapy Treatment Note M2 PT-IP Current Condition Start: 03/01/18 12:52 Freq: NEEDED Status: Active Protocol: Document 03/01/18 10:12 AB (Rec: 03/01/18 12:56 AB [id number]) Physical Therapy Current Condition Current Condition Evaluation Date 03/01/18 Treatment Diagnosis s/p L3-4 anterior /post fusion and lami; difficulty in walking Onset Date 02/28/18 Precautions Lumbar Precautions Log Roll No Twisting Limit Bending Lifting Restriction of 10 lbs Gait Belt above Incisional Area M3 PT-IP Subjective Start: 03/01/18 12:52 Freq: NEEDED Status: Active Protocol: Document 03/02/18 11:39 AB (Rec: 03/02/18 12:22 AB [id number]) Subjective Physical Therapy Visit Type Type Treatment Note Visit Start Time 11:39 Visit Stop Time 11:55 Total Visit Minutes 16 Number of STRATEGIC PLANNING CONSULTANT Visits 0 Physical Therapy Visit Comments Patient Comments pt agreeable to do PT. c/o increase LBP Therapy Pain Assessment Pain When Pain Assessed At Rest Pain Present Pain Present Pain Reported Location Back Intensity 8 Scale Used Numeric (1 - 10) Pain Management Techniques Re-positioning Timing of Activity with Medications M4 PT-IP Mobility and Gait Start: 03/01/18 12:52 Freq: NEEDED Status: Active Protocol: Document 03/02/18 11:39 AB (Rec: 03/02/18 12:22 AB [id number]) PT-Transfer Assessment Sit to and From Stand Sit to and from Stand Contact Guard Assistance 1 Person Assistance Equipment Transfer Assistive Device Gait Belt Front Wheeled Walker Orthotic/Prosthetic Devices or Brace: No Gait Assessment Gait Gait Assistance Required: Contact Guard Assist Distance (Feet) 125 Able to Maintain Weight Bearing Status Yes During Gait Assistive Devices Assistive Device Gait Belt Front Wheeled Walker Orthotic/Prosthetic Devices or Brace: No Gait Deviations General Gait Pattern Antalgic Decreased Stride Length Decreased Feet Clearance Factors Limiting Gait Function Factors Limiting Gait Function Decreased Activity Tolerance Decreased Strength Limited Range of Motion Pain Poor Balance M5 PT-IP Objective Assessments Start: 03/01/18 12:52 Freq: NEEDED Status: Active Protocol: Document 03/01/18 10:12 AB (Rec: 03/01/18 13:03 AB [id number]) Orientation Orientation/Cognition Level of Alertness Alert Orientation Name Age Birthday Month Date Year Day of Week Place Situation Safety Awareness Understands Safety Issues Gross Range of Motion Lower Extremity ROM Assessment Within Functional Limits Strength Lower Extremity Strength Assessment Bilaterally Impaired Comments Strength Comments RLE 4-/5 LLE 3+/5 Coordination Assessment Gross Coordination Gross Coordination WNL Sensation Assessment Sensation Gross Sensation WNL Muscle Tone Muscle Tone WNL Yes M6 PT-IP Treatment Start: 03/01/18 12:52 Freq: NEEDED Status: Active Protocol: Document 03/02/18 11:39 AB (Rec: 03/02/18 12:22 AB [id number]) Physical Therapy Treatment Education Education Provided Precautions Safety M7 PT-IP Assessment and Plan Start: 03/01/18 12:52 Freq: NEEDED Status: Active Protocol: Document 03/02/18 11:39 AB (Rec: 03/02/18 12:22 AB [id number]) PT Summary Assessment and Plan Potential Rehabilitation Potential Good Summary Impairments Pain ROM Strength Balance Coordination Sensation Tone Cognition Bed Mobility Transfers Gait Activity Tolerance Progress Towards Goals Slow Progress due to Pain Assessment Summary pt progressing slowly with mobility but continues to require one person CGA with ambulation. pt plans to go home with her sister/sister's boyfriend to assist her. d/c plan depending on progress and will need to do stair climbing training prior to d/c . Goals Bed Mobility Goal Standby Assistance Transfer Goal Standby Assistance Front Wheeled Walker Gait Goal Standby Assistance Front Wheel Walker Gait Distance 100 Other Goals up/down 1 step using FWW Days to Meet Goals 5 Frequency of Treatment Frequency Of Treatment Twice a Day Treatment Plan Physical Therapy Treatment Plan Bed Mobility Training Transfer Training Gait Training Therapeutic Exercise Balance Retraining Post Op Education Discharge Planning Hot or Cold Pack Neuromuscular Re-ed Coordination Retraining Manual Therapy Other Recommendations and Next Treatment ambulation Focus Recommendations To Nursing Amount of Assist Needed 1 Person Assist Discharge Recommendations PT Discharge Recommendations Home with 24/7 Assist Other Discharge Recommendations may require homehealth PT depending on progress/ level of assistance upon d/c
[2018-03-02] MEDS: hydrOXYzine pamoate 25 MG CAPSULE PO ×2 (13:22→18:50)
--- NOTE | 2018-03-02 13:23 | OT.IP.TRT ---
Current Diagnoses Opioid use, unspecified, uncomplicated (02/28/18) Major depressive disorder, single episode, unspecified (02/28/18) Sleep apnea, unspecified (02/28/18) Other chronic pain (02/28/18) Spondylolisthesis, lumbar region (02/28/18) Spinal stenosis, lumbar region with neurogenic claudication (02/28/18) Arthrodesis status (02/28/18) Surgery Performed Operation Date: 02/28/18 10:15 Actual Procedures p L3-4 revision Laminectomy, Ant/Post Instru. Fusion & bone graft - Brandon Diaz MD Occupational Therapy Treatment Note M2 OT-IP Current Condition Start: 03/01/18 16:23 Freq: Status: Active Protocol: Document 03/01/18 16:15 PJM (Rec: 03/01/18 16:38 PJ [id number]) Occupational Therapy Current Condition Current Condition Evaluation Date 03/01/18 Treatment Diagnosis decreased self care,mobility s /p L3-4 revision lami w/ L3-4 ant/post fusion Diagnosis Onset Date 02/28/18 Post Operative Precautions Lumbar Precautions Log Roll No Twisting Limit Bending Lifting Restriction of 10 lbs Gait Belt above Incisional Area M3 OT- IP Subjective and Pain Start: 03/01/18 16:23 Freq: Status: Active Protocol: Document 03/02/18 13:23 PJM (Rec: 03/02/18 13:36 PJ [id number]) OT- Subjective Occupational Therapy Visit Type Type Treatment Note Visit Start Time 12:59 Visit Stop Time 13:23 Total Visit Minutes 24 Notes Pt up in recliner, sleeping, when therapist arrived. After alerting pt, O2 sats 94 on room air. Occupational Therapy Visit Comments Patient Comments This hurts like crazy. Patient/Caregiver Goals to have less pain and go home OT Pain Assessment Pain When Pain Assessed After Treatment Pain Present Pain Present Pain Reported Location Back Intensity 7 Scale Used Numeric (1 - 10) Description Aching Acute Management Techniques Distraction Re-positioning Timing of Activity with Medications M4 OT- IP ADL's Start: 03/01/18 16:23 Freq: Status: Active Protocol: Document 03/02/18 13:23 PJM (Rec: 03/02/18 13:36 PJ [id number]) OT ADL-Grooming General Evaluation Grooming Ability Standby Assistance Areas Needing Assistance Retrieving/Set-up of Grooming Items Combing/Brushing Hair Face Washing Comments OT Grooming Comments pt stood at sink 5-6 min with close SBA to CGA for safety with FWW OT ADL-Oral Care Comments Oral Care Comments pt stood at sink 5-6 min with close SBA to CGA for safety with FWW M5 OT- IP IADL's Start: 03/01/18 16:23 Freq: Status: Active Protocol: Document 03/01/18 16:15 PJM (Rec: 03/01/18 16:38 PJ [id number]) OT-Instrumental Activities of Daily Living Deficits IADL Deficits Identified Deficits Home Safety Awareness Awareness of Need for Assistance at Home Good Awareness Ability to Problem Solve Emergency Able to Problem Solve Situations Medication Management Medication Management No Deficits Identified Money Management Money Management No Deficits Identified Meal Preparation Meal Preparation Caregiver Provides Assist Meal Preparation Comments family to assist until pt able Integrated Circuits Inspector Integrated Circuits Inspector Caregiver Provides Assist Integrated Circuits Inspector Comments family to assist until pt able Driving Driving Caregiver Provides Assist Driving Comments family to assist until pt able M6 OT- IP Functional Cognition Start: 03/01/18 16:23 Freq: Status: Active Protocol: Document 03/02/18 13:23 PJM (Rec: 03/02/18 13:36 [facility] [id number]) Cognitive Factors Limiting Selfcare Function Cognitive Ability Level of Alertness Drowsy Patient Orientation Name Age Birthday Month Date Year Day of Week Place Situation Attention Span Ability Capable of Focused Attention Ability to Follow Commands Able to Follow One Step Commands Memory Description No Deficits Noted Safety Awareness No Deficits Noted Cognitive Comments Cognitive Assessment Comments Pt more alert today, but tends to keep eyes closed due to high pain level. M7 OT- IP Mobility and Balance Start: 03/01/18 16:23 Freq: Status: Active Protocol: Document 03/02/18 13:23 PJM (Rec: 03/02/18 13:36 [facility] [id number]) OT- Bed Mobility Assessment Rolling Type of Rolling Roll to Right Level of Assistance Standby Assistance 1 Person Assistance Sit to Supine Sit to Supine Assist Minimal Assistance 1 Person Assistance OT-Transfer Assessment Sit to and From Stand Sit to and from Stand Contact Guard Assistance Transfers Transfer Ability Contact Guard Assistance Technique Transfer Destination Bed Chair Transfer Technique Stand Step Pivot Devices Transfer Assistive Devices Gait Belt Front Wheeled Walker Comments Mobility Comments Pt needs mod cues for log rolling into bed and min assist to get BLE's onto bed. OT- Gait Assessment Gait Gait Assistance Required: Contact Guard Assist Distance (Feet) 15 Assistive Devices Assistive Device Gait Belt 4 Wheeled Walker Comments Gait Ability Comments Pt walked to sink and back with fww. OT- Balance Assessment Sitting Balance and Reactions Static Sitting Balance Ability Good Standing Balance and Reactions Static Standing Balance Ability Good Dynamic Standing Balance Ability Fair M8 OT- IP Objective Assessments Start: 03/01/18 16:23 Freq: Status: Active Protocol: Document 03/01/18 16:15 PJM (Rec: 03/01/18 16:38 PJM [id number]) OT Gross Range of Motion Upper Extremity Range of Motion Assessment Within Functional Limits OT Strength Upper Extremity Strength Assessment Within Functional Limits OT- Coordination Assessment Comments Coordination Comments BUE WFL OT-Muscle Tone Assessment Muscle Tone WNL Yes OT Sensation Assessment Comments Summary Comments Pt denies sensory deficits in BUE's Edema Edema Absent M9 OT- IP Assessment and Plan Start: 03/01/18 16:23 Freq: Status: Active Protocol: Document 03/02/18 13:23 PJM (Rec: 03/02/18 13:36 PJM [id number]) OT Summary Assessment and Plan Potential Rehabilitation Potential Good Summary OT Impairments Pain Balance Functional Mobility Dressing Toileting Bathing Toilet Transfers Shower Transfers Progress Towards Goals Slow Progress due to Pain Slow Progress due to Activity Tolerance Assessment Summary Pt more alert today but activity tolerance still limited by high pain levels. Pt moves very slowly and slow to alert when she has been asleep. Pt requesting back to bed after tx due to prolonged time up in chair this AM. pt did tolerate 5-6 min standing at sink for grooming tasks, but declined dressing practice today due to fatigue and pain level. Anticipate pt will continue to improve and will be able to d/c home with family assist. Goals Grooming Goal Independent Dressing Goal Standby Assistance Long Handled Shoe Horn Bit Setter Sock Aid Toileting Goal Independent Bathing Goal Standby Assistance Toilet Transfer Goal Independent Shower Transfer Goal Standby Assistance Patient/Caregiver Education Goal Demonstrate Post-Op Precautions Demonstrate Energy Conservation and Pacing Caregiver Independent Assisting Patient Days to Meet Goals 3 Frequency of Treatment Frequency Of Treatment Once a Day Treatment Plan OT Treatment Plan ADL Training Functional Mobility Patient/Family Education Discharge Planning Other Treatment Recommendations and Next see up in chair for dressing Treatment Focus practice; try to shower day of d/c. Pt wants d/c on Tuesday as more family to assist then including sister who is a P.T . Discharge Recommendations OT Discharge Recommendations Home with Assistance Home Equipment Needs pt has all necessary equipt
--- NOTE | 2018-03-02 15:23 | PT.IPTN ---
Current Diagnoses Opioid use, unspecified, uncomplicated (02/28/18) Major depressive disorder, single episode, unspecified (02/28/18) Sleep apnea, unspecified (02/28/18) Other chronic pain (02/28/18) Spondylolisthesis, lumbar region (02/28/18) Spinal stenosis, lumbar region with neurogenic claudication (02/28/18) Arthrodesis status (02/28/18) Surgery Performed Operation Date: 02/28/18 10:15 Actual Procedures p L3-4 revision Laminectomy, Ant/Post Instru. Fusion & bone graft - Brandon Diaz MD Physical Therapy Treatment Note M2 PT-IP Current Condition Start: 03/01/18 12:52 Freq: NEEDED Status: Active Protocol: Document 03/01/18 10:12 AB (Rec: 03/01/18 12:56 AB [id number]) Physical Therapy Current Condition Current Condition Evaluation Date 03/01/18 Treatment Diagnosis s/p L3-4 anterior /post fusion and lami; difficulty in walking Onset Date 02/28/18 Precautions Lumbar Precautions Log Roll No Twisting Limit Bending Lifting Restriction of 10 lbs Gait Belt above Incisional Area M3 PT-IP Subjective Start: 03/01/18 12:52 Freq: NEEDED Status: Active Protocol: Document 03/02/18 15:22 GGD (Rec: 03/02/18 15:23 GGD [id number]) Subjective Physical Therapy Visit Type Type Patient Refusal Notes Pt refused states she having to much pain, check on pt 40 min after pain medications and pt refused states pain hasn't changed. M4 PT-IP Mobility and Gait Start: 03/01/18 12:52 Freq: NEEDED Status: Active Protocol: Document 03/02/18 11:39 AB (Rec: 03/02/18 12:22 AB [id number]) PT-Transfer Assessment Sit to and From Stand Sit to and from Stand Contact Guard Assistance 1 Person Assistance Equipment Transfer Assistive Device Gait Belt Front Wheeled Walker Orthotic/Prosthetic Devices or Brace: No Gait Assessment Gait Gait Assistance Required: Contact Guard Assist Distance (Feet) 125 Able to Maintain Weight Bearing Status Yes During Gait Assistive Devices Assistive Device Gait Belt Front Wheeled Walker Orthotic/Prosthetic Devices or Brace: No Gait Deviations General Gait Pattern Antalgic Decreased Stride Length Decreased Feet Clearance Factors Limiting Gait Function Factors Limiting Gait Function Decreased Activity Tolerance Decreased Strength Limited Range of Motion Pain Poor Balance M5 PT-IP Objective Assessments Start: 03/01/18 12:52 Freq: NEEDED Status: Active Protocol: Document 03/01/18 10:12 AB (Rec: 03/01/18 13:03 AB [id number]) Orientation Orientation/Cognition Level of Alertness Alert Orientation Name Age Birthday Month Date Year Day of Week Place Situation Safety Awareness Understands Safety Issues Gross Range of Motion Lower Extremity ROM Assessment Within Functional Limits Strength Lower Extremity Strength Assessment Bilaterally Impaired Comments Strength Comments RLE 4-/5 LLE 3+/5 Coordination Assessment Gross Coordination Gross Coordination WNL Sensation Assessment Sensation Gross Sensation WNL Muscle Tone Muscle Tone WNL Yes M6 PT-IP Treatment Start: 03/01/18 12:52 Freq: NEEDED Status: Active Protocol: Document 03/02/18 11:39 AB (Rec: 03/02/18 12:22 AB [id number]) Physical Therapy Treatment Education Education Provided Precautions Safety M7 PT-IP Assessment and Plan Start: 03/01/18 12:52 Freq: NEEDED Status: Active Protocol: Document 03/02/18 11:39 AB (Rec: 03/02/18 12:22 AB [id number]) PT Summary Assessment and Plan Potential Rehabilitation Potential Good Summary Impairments Pain ROM Strength Balance Coordination Sensation Tone Cognition Bed Mobility Transfers Gait Activity Tolerance Progress Towards Goals Slow Progress due to Pain Assessment Summary pt progressing slowly with mobility but continues to require one person CGA with ambulation. pt plans to go home with her sister/sister's boyfriend to assist her. d/c plan depending on progress and will need to do stair climbing training prior to d/c . Goals Bed Mobility Goal Standby Assistance Transfer Goal Standby Assistance Front Wheeled Walker Gait Goal Standby Assistance Front Wheel Walker Gait Distance 100 Other Goals up/down 1 step using FWW Days to Meet Goals 5 Frequency of Treatment Frequency Of Treatment Twice a Day Treatment Plan Physical Therapy Treatment Plan Bed Mobility Training Transfer Training Gait Training Therapeutic Exercise Balance Retraining Post Op Education Discharge Planning Hot or Cold Pack Neuromuscular Re-ed Coordination Retraining Manual Therapy Other Recommendations and Next Treatment ambulation Focus Recommendations To Nursing Amount of Assist Needed 1 Person Assist Discharge Recommendations PT Discharge Recommendations Home with 24/7 Assist Other Discharge Recommendations may require homehealth PT depending on progress/ level of assistance upon d/c
[2018-03-02] MEDS: SENNOSIDES 8.6 MG TABLET 17.2 MG PO (20:50)
[2018-03-03] VITALS (12 sets, daily range): BP systolic 91–127; BP diastolic 41–80; PULSE 69–81; RESP 15–19; TEMP 36.4–37.1; O2SAT 86–96
[2018-03-03] MEDS: hydrOXYzine pamoate 25 MG CAPSULE PO ×3 (00:32→17:09)
[2018-03-03] MEDS: OXYCODONE IR 10 MG TABLET PO ×6 (00:32→21:05)
--- NOTE | 2018-03-03 00:57 | PC.NURSE ---
Addendum entered by Glenys Tripathi R.N. 03/03/18 05:21: 0500 Up to bathroom; voided and states she did pass some flatus. Ambulated in mederos from room to SE nurse station and then back to room; used walker and SBA. States pain is still 5/10. Original Note: Addendum entered by Glenys Tripathi R.N. 03/03/18 03:41: Complains of 6/10 belly and low back pain. Still passing no flatus but abdomen is soft. Provided warm blanket to abdomen for comfort and medicated with Oxycodone Original Note: Patient is alert and oriented. Breath sounds CTA. RA sat 88% after being up to bathroom and states she uses 3L/min oxygen at home at night for low sats so now back on oxygen at 3L/min per NC and sat at 95%. HRR. BP low at 91/68 but is asymptomatic and has trended lower intermittently. Denies nausea. BT tympanic sounding and abdomen is distended; denies flatus and has not had BM since 02/27 although has been receiving Colace, Senna and MOM. States she would take prune juice in a.m. Voiding without dysuria following catheter removal yesterday. Is able to turn self in bed but when OOB uses walker and SBA for safety; denies weakness or unsteadiness. Dressing to left hip and back are CDI. Has 2 V shaped red/shiny abrasions below dressing; no drainage noted. Complains of 7/10 pain so medicated with Vistaril + Oxycodone but declines offer of ice and states she feels the pain is better controlled. Fall risk score is moderate; bed alarm is activated. Wearing bilateral foot SCD's. CMS is intact.
--- NOTE | 2018-03-03 07:35 | PM.PNPO.1 ---
Subjective Date Patient Seen: 03/03/18 Time Patient Seen: 07:35 Interval history: She is doing better. Pain is about a 4/10 at its best. Still requiring assistance, she stumbled yesterday and likely had therapy to catcher. Exam Vital Signs (past 8 hours): - 03/03/18 00:18 03/03/18 00:50 03/03/18 03:41 Temperature 98.6 F 97.5 F L Pulse Rate 77 81 Respiratory Rate 16 16 Blood Pressure 91/68 117/69 Pulse Oximetry 90 L 95 95 Oxygen Delivery Method Nasal Cannula Oxygen Flow Rate 3 Const Orientation: alert and oriented x3 Back/Spine/Pelvis Other: Dressing CDI. 5/5 motor both lower extremity Objective Labs Result Diagrams: 03/01/18 05:20 Assessment & Plan Post-op Postoperative Procedures Operation Date: 02/28/18 10:15 Actual Procedures Side Surgeon p L3-4 revision Laminectomy, Ant/Post Instru. Fusion & bone graft Brandon Diaz MD She is making good slow progress. I do not think she is quite ready for discharge today she still unsteady on her feet and stumbling. Most likely discharged home tomorrow. Quality VTE Deep Vein Thrombosis/Pulmonary Embolism Present on Admission: No
--- NOTE | 2018-03-03 08:18 | PC.NURSE ---
AM NOTE - up to dangle position, w/fww ambul br w/void, flatus, does have active bt, discussed constipation and with breakfast given mom and prune juice, will eval need for dulcolax later am, coversite cdi, has surrounding redness from previous telfa, open area robert to incisions, ointment applied, w/removal 02 initially 94%, does drift down to 89-90%, will replace after breakfast, pt uses 3l 02 at home, primarily at night.
[2018-03-03] MEDS: METHADONE 10 MG TABLET 30 MG PO ×2 (09:09→21:04)
[2018-03-03] MEDS: DOCUSATE 100 MG CAPSULE PO (09:10)
[2018-03-03] MEDS: MAGNESIUM HYDROXIDE 30 ML UDC PO (09:10)
[2018-03-03] MEDS: ASPIRIN EC 81 MG TABLET PO (09:10)
[2018-03-03] MEDS: SODIUM CHLORIDE 0.9% FLUSH 10 ML IV ×2 (09:11→21:05)
--- NOTE | 2018-03-03 10:36 | PC.NURSE ---
Addendum entered by Martha Soliz R.N. 03/03/18 14:44: GI/PAIN - assisted x 1 w/fww to br w/lots flatus and large loose stool, pain 7 on scale 0/10, oxycodone 10mg given, abd feels much better and nausea resolved. Original Note: Addendum entered by Martha Soliz R.N. 03/03/18 12:20: PAIN/GI - when awake, states continues to feel bloated, not hungry, I passed a lot of gas earlier, given dulcolax suppos, 10mg oxycodone with yogurt, call light and bsc available. Original Note: Addendum entered by Martha Soliz R.N. 03/03/18 10:37: AM NOTE - up to dangle position, assisted into br w/void, some flatus, states does feel a little bloated and discussed bm, ret to chair for breakfast, given mom and prune juice in addition to colace this am, discussed suppos, declines at this time, pain 7 on scale 0/10, discussed dosage and timing, added 25mg po vistaril for back discomfort 7 on scale 0/10, coversite dsg cdi, does have visible red markings at distal end and around prev telfa dressing sites, ointment applied, ice pack to back, ra trial during breakfast 89-92%, fatigued and req back to bed, replaced nc at 3l. Original Note: AM NOTE - y
[2018-03-03] MEDS: BISACODYL 10 MG SUPP PR (12:01)
--- NOTE | 2018-03-03 12:09 | PT.IPTN ---
Current Diagnoses Opioid use, unspecified, uncomplicated (02/28/18) Major depressive disorder, single episode, unspecified (02/28/18) Sleep apnea, unspecified (02/28/18) Other chronic pain (02/28/18) Spondylolisthesis, lumbar region (02/28/18) Spinal stenosis, lumbar region with neurogenic claudication (02/28/18) Arthrodesis status (02/28/18) Surgery Performed Operation Date: 02/28/18 10:15 Actual Procedures p L3-4 revision Laminectomy, Ant/Post Instru. Fusion & bone graft - Brandon Diaz MD Physical Therapy Treatment Note M2 PT-IP Current Condition Start: 03/01/18 12:52 Freq: NEEDED Status: Active Protocol: Document 03/01/18 10:12 AB (Rec: 03/01/18 12:56 AB [id number]) Physical Therapy Current Condition Current Condition Evaluation Date 03/01/18 Treatment Diagnosis s/p L3-4 anterior /post fusion and lami; difficulty in walking Onset Date 02/28/18 Precautions Lumbar Precautions Log Roll No Twisting Limit Bending Lifting Restriction of 10 lbs Gait Belt above Incisional Area M3 PT-IP Subjective Start: 03/01/18 12:52 Freq: NEEDED Status: Active Protocol: Document 03/03/18 12:08 AB (Rec: 03/03/18 12:09 AB [id number]) Subjective Physical Therapy Visit Type Notes checked on pt x2 and refused PT. stated that she is not feeling well today and that she already walked with nursing this morning. will check again this afternoon. M4 PT-IP Mobility and Gait Start: 03/01/18 12:52 Freq: NEEDED Status: Active Protocol: Document 03/02/18 11:39 AB (Rec: 03/02/18 12:22 AB [id number]) PT-Transfer Assessment Sit to and From Stand Sit to and from Stand Contact Guard Assistance 1 Person Assistance Equipment Transfer Assistive Device Gait Belt Front Wheeled Walker Orthotic/Prosthetic Devices or Brace: No Gait Assessment Gait Gait Assistance Required: Contact Guard Assist Distance (Feet) 125 Able to Maintain Weight Bearing Status Yes During Gait Assistive Devices Assistive Device Gait Belt Front Wheeled Walker Orthotic/Prosthetic Devices or Brace: No Gait Deviations General Gait Pattern Antalgic Decreased Stride Length Decreased Feet Clearance Factors Limiting Gait Function Factors Limiting Gait Function Decreased Activity Tolerance Decreased Strength Limited Range of Motion Pain Poor Balance M5 PT-IP Objective Assessments Start: 03/01/18 12:52 Freq: NEEDED Status: Active Protocol: Document 03/01/18 10:12 AB (Rec: 03/01/18 13:03 AB [id number]) Orientation Orientation/Cognition Level of Alertness Alert Orientation Name Age Birthday Month Date Year Day of Week Place Situation Safety Awareness Understands Safety Issues Gross Range of Motion Lower Extremity ROM Assessment Within Functional Limits Strength Lower Extremity Strength Assessment Bilaterally Impaired Comments Strength Comments RLE 4-/5 LLE 3+/5 Coordination Assessment Gross Coordination Gross Coordination WNL Sensation Assessment Sensation Gross Sensation WNL Muscle Tone Muscle Tone WNL Yes M6 PT-IP Treatment Start: 03/01/18 12:52 Freq: NEEDED Status: Active Protocol: Document 03/02/18 11:39 AB (Rec: 03/02/18 12:22 AB [id number]) Physical Therapy Treatment Education Education Provided Precautions Safety M7 PT-IP Assessment and Plan Start: 03/01/18 12:52 Freq: NEEDED Status: Active Protocol: Document 03/02/18 11:39 AB (Rec: 03/02/18 12:22 AB [id number]) PT Summary Assessment and Plan Potential Rehabilitation Potential Good Summary Impairments Pain ROM Strength Balance Coordination Sensation Tone Cognition Bed Mobility Transfers Gait Activity Tolerance Progress Towards Goals Slow Progress due to Pain Assessment Summary pt progressing slowly with mobility but continues to require one person CGA with ambulation. pt plans to go home with her sister/sister's boyfriend to assist her. d/c plan depending on progress and will need to do stair climbing training prior to d/c . Goals Bed Mobility Goal Standby Assistance Transfer Goal Standby Assistance Front Wheeled Walker Gait Goal Standby Assistance Front Wheel Walker Gait Distance 100 Other Goals up/down 1 step using FWW Days to Meet Goals 5 Frequency of Treatment Frequency Of Treatment Twice a Day Treatment Plan Physical Therapy Treatment Plan Bed Mobility Training Transfer Training Gait Training Therapeutic Exercise Balance Retraining Post Op Education Discharge Planning Hot or Cold Pack Neuromuscular Re-ed Coordination Retraining Manual Therapy Other Recommendations and Next Treatment ambulation Focus Recommendations To Nursing Amount of Assist Needed 1 Person Assist Discharge Recommendations PT Discharge Recommendations Home with 24/7 Assist Other Discharge Recommendations may require homehealth PT depending on progress/ level of assistance upon d/c
[2018-03-03] MEDS: ONDANSETRON 4 MG/2 ML INJ IV (12:27)
--- NOTE | 2018-03-03 15:00 | OT.IP.TRT ---
Current Diagnoses Opioid use, unspecified, uncomplicated (02/28/18) Major depressive disorder, single episode, unspecified (02/28/18) Sleep apnea, unspecified (02/28/18) Other chronic pain (02/28/18) Spondylolisthesis, lumbar region (02/28/18) Spinal stenosis, lumbar region with neurogenic claudication (02/28/18) Arthrodesis status (02/28/18) Surgery Performed Operation Date: 02/28/18 10:15 Actual Procedures p L3-4 revision Laminectomy, Ant/Post Instru. Fusion & bone graft - Brandon Diaz MD Occupational Therapy Treatment Note M2 OT-IP Current Condition Start: 03/01/18 16:23 Freq: Status: Active Protocol: Document 03/01/18 16:15 PJM (Rec: 03/01/18 16:38 PJM [id number]) Occupational Therapy Current Condition Current Condition Evaluation Date 03/01/18 Treatment Diagnosis decreased self care,mobility s /p L3-4 revision lami w/ L3-4 ant/post fusion Diagnosis Onset Date 02/28/18 Post Operative Precautions Lumbar Precautions Log Roll No Twisting Limit Bending Lifting Restriction of 10 lbs Gait Belt above Incisional Area M3 OT- IP Subjective and Pain Start: 03/01/18 16:23 Freq: Status: Active Protocol: Document 03/03/18 14:59 [facility] (Rec: 03/03/18 15:00 [facility] [id number]) OT- Subjective Occupational Therapy Visit Type Type Patient Refusal Notes Pt states not wanting to do OT at this time as finally had a bowel movement and just resting now. Pt did agree to do shower tomorrow at 9AM with OT.
--- NOTE | 2018-03-03 15:27 | PT.IPTN ---
Current Diagnoses Opioid use, unspecified, uncomplicated (02/28/18) Major depressive disorder, single episode, unspecified (02/28/18) Sleep apnea, unspecified (02/28/18) Other chronic pain (02/28/18) Spondylolisthesis, lumbar region (02/28/18) Spinal stenosis, lumbar region with neurogenic claudication (02/28/18) Arthrodesis status (02/28/18) Surgery Performed Operation Date: 02/28/18 10:15 Actual Procedures p L3-4 revision Laminectomy, Ant/Post Instru. Fusion & bone graft - Brandon Diaz MD Physical Therapy Treatment Note M2 PT-IP Current Condition Start: 03/01/18 12:52 Freq: NEEDED Status: Active Protocol: Document 03/01/18 10:12 AB (Rec: 03/01/18 12:56 AB [id number]) Physical Therapy Current Condition Current Condition Evaluation Date 03/01/18 Treatment Diagnosis s/p L3-4 anterior /post fusion and lami; difficulty in walking Onset Date 02/28/18 Precautions Lumbar Precautions Log Roll No Twisting Limit Bending Lifting Restriction of 10 lbs Gait Belt above Incisional Area M3 PT-IP Subjective Start: 03/01/18 12:52 Freq: NEEDED Status: Active Protocol: Document 03/03/18 15:13 AB (Rec: 03/03/18 17:38 AB [id number]) Subjective Physical Therapy Visit Type Type Initial Evaluation Visit Start Time 15:13 Visit Stop Time 15:27 Total Visit Minutes 14 Number of COLLAR FOLDER OPERATOR Visits 0 Physical Therapy Visit Comments Patient Comments pt agreed to do PT Therapy Pain Assessment Pain When Pain Assessed At Rest Pain Present Pain Present Pain Reported Location Abdomen Intensity 8 Scale Used Numeric (1 - 10) Pain Management Techniques Re-positioning Timing of Activity with Medications M4 PT-IP Mobility and Gait Start: 03/01/18 12:52 Freq: NEEDED Status: Active Protocol: Document 03/03/18 15:13 AB (Rec: 03/03/18 17:38 AB [id number]) PT-Bed Mobility Assessment Supine to Sit Supine to Sit Standby Assistance Sit to Supine Sit to Supine Standby Assistance PT-Transfer Assessment Equipment Transfer Assistive Device Gait Belt Front Wheeled Walker Orthotic/Prosthetic Devices or Brace: No Gait Assessment Gait Gait Assistance Required: Standby Assistance Contact Guard Assist Distance (Feet) 250 Able to Maintain Weight Bearing Status Yes During Gait Assistive Devices Assistive Device Gait Belt Front Wheeled Walker Orthotic/Prosthetic Devices or Brace: No Gait Deviations General Gait Pattern Antalgic Decreased Stride Length Decreased Feet Clearance Factors Limiting Gait Function Factors Limiting Gait Function Decreased Activity Tolerance Decreased Strength Limited Range of Motion Pain Poor Balance Stair Climbing Assessment Evaluation Level of Assist On Stairs Contact Guard Assistance Devices Stair Climbing Assistive Devices Front Wheel Walker Technique/Endurance Stair Climbing Direction Ascend and Descend Stair Climbing Technique Step to Step Number of Steps Climbed 1 Query Text: Stair Climbing Set # Repetitions (reps) 2 M5 PT-IP Objective Assessments Start: 03/01/18 12:52 Freq: NEEDED Status: Active Protocol: Document 03/01/18 10:12 AB (Rec: 03/01/18 13:03 AB [id number]) Orientation Orientation/Cognition Level of Alertness Alert Orientation Name Age Birthday Month Date Year Day of Week Place Situation Safety Awareness Understands Safety Issues Gross Range of Motion Lower Extremity ROM Assessment Within Functional Limits Strength Lower Extremity Strength Assessment Bilaterally Impaired Comments Strength Comments RLE 4-/5 LLE 3+/5 Coordination Assessment Gross Coordination Gross Coordination WNL Sensation Assessment Sensation Gross Sensation WNL Muscle Tone Muscle Tone WNL Yes M6 PT-IP Treatment Start: 03/01/18 12:52 Freq: NEEDED Status: Active Protocol: Document 03/03/18 15:13 AB (Rec: 03/03/18 17:38 AB [id number]) Physical Therapy Treatment Education Education Provided Precautions Safety M7 PT-IP Assessment and Plan Start: 03/01/18 12:52 Freq: NEEDED Status: Active Protocol: Document 03/03/18 15:13 AB (Rec: 03/03/18 17:38 AB [id number]) PT Summary Assessment and Plan Potential Rehabilitation Potential Good Summary Impairments Pain ROM Strength Balance Bed Mobility Transfers Gait Activity Tolerance Progress Towards Goals Slow Progress due to Activity Tolerance Assessment Summary pt progressing slowly with mobility but continues to be limited due to decrease activity tolerance. pt plans to go home with her sister and brother -in-law assisting her . Goals Bed Mobility Goal Standby Assistance Transfer Goal Standby Assistance Front Wheeled Walker Gait Goal Standby Assistance Front Wheel Walker Gait Distance 100 Other Goals up/down 1 step using FWW Days to Meet Goals 5 Frequency of Treatment Frequency Of Treatment Twice a Day Treatment Plan Physical Therapy Treatment Plan Bed Mobility Training Transfer Training Gait Training Therapeutic Exercise Balance Retraining Post Op Education Discharge Planning Hot or Cold Pack Neuromuscular Re-ed Coordination Retraining Manual Therapy Other Recommendations and Next Treatment ambulation Focus Recommendations To Nursing Amount of Assist Needed 1 Person Assist Discharge Recommendations PT Discharge Recommendations Home with Assistance
[2018-03-04] MEDS: OXYCODONE IR 10 MG TABLET PO ×4 (00:39→11:10)
[2018-03-04 05:10] VITALS: BP 125/63; PULSE 74; RESP 20; TEMP 36.4; O2SAT 99
[2018-03-04 08:00] VITALS: BP 117/63; PULSE 76; RESP 18; TEMP 36.8; O2SAT 91
[2018-03-04] MEDS: SODIUM CHLORIDE 0.9% FLUSH 10 ML IV (08:14)
[2018-03-04] MEDS: ASPIRIN EC 81 MG TABLET PO (08:16)
[2018-03-04] MEDS: LISINOPRIL 20 MG TABLET PO (08:16)
[2018-03-04] MEDS: METHADONE 10 MG TABLET 30 MG PO ×2 (08:16→10:50)
[2018-03-04 08:19] VITALS: O2SAT 95
--- NOTE | 2018-03-04 09:15 | PT.IPTN ---
Current Diagnoses Opioid use, unspecified, uncomplicated (02/28/18) Major depressive disorder, single episode, unspecified (02/28/18) Sleep apnea, unspecified (02/28/18) Other chronic pain (02/28/18) Spondylolisthesis, lumbar region (02/28/18) Spinal stenosis, lumbar region with neurogenic claudication (02/28/18) Arthrodesis status (02/28/18) Surgery Performed Operation Date: 02/28/18 10:15 Actual Procedures p L3-4 revision Laminectomy, Ant/Post Instru. Fusion & bone graft - Brandon Diaz MD Physical Therapy Treatment Note M2 PT-IP Current Condition Start: 03/01/18 12:52 Freq: NEEDED Status: Active Protocol: Document 03/01/18 10:12 AB (Rec: 03/01/18 12:56 AB [id number]) Physical Therapy Current Condition Current Condition Evaluation Date 03/01/18 Treatment Diagnosis s/p L3-4 anterior /post fusion and lami; difficulty in walking Onset Date 02/28/18 Precautions Lumbar Precautions Log Roll No Twisting Limit Bending Lifting Restriction of 10 lbs Gait Belt above Incisional Area M3 PT-IP Subjective Start: 03/01/18 12:52 Freq: NEEDED Status: Active Protocol: Document 03/04/18 09:15 AB (Rec: 03/04/18 12:15 AB [id number]) Subjective Physical Therapy Visit Type Type Treatment Note Visit Start Time 09:15 Visit Stop Time 09:27 Total Visit Minutes 22 Number of GREASE MAN Visits 0 Physical Therapy Visit Comments Patient Comments pt agreeable to do PT Therapy Pain Assessment Pain When Pain Assessed At Rest Pain Present Pain Present Pain Reported Location Abdomen Intensity 8 Pain Management Techniques Re-positioning Timing of Activity with Medications M4 PT-IP Mobility and Gait Start: 03/01/18 12:52 Freq: NEEDED Status: Active Protocol: Document 03/04/18 09:15 AB (Rec: 03/04/18 12:15 AB [id number]) PT-Bed Mobility Assessment Rolling Type of Rolling Log Rolling Level of Assist Standby Assistance Supine to Sit Supine to Sit Standby Assistance Bedrails Scooting Scooting Up and Down in Bed Standby Assistance PT-Transfer Assessment Sit to and From Stand Sit to and from Stand Standby Assistance Use of Upper Extremities Gait Assessment Gait Gait Assistance Required: Standby Assistance Distance (Feet) 250 Able to Maintain Weight Bearing Status Yes During Gait Assistive Devices Assistive Device Gait Belt Front Wheeled Walker Orthotic/Prosthetic Devices or Brace: Yes Gait Deviations General Gait Pattern Antalgic Decreased Stride Length Decreased Feet Clearance Factors Limiting Gait Function Factors Limiting Gait Function Decreased Activity Tolerance Decreased Strength Limited Range of Motion Pain Poor Balance Poor Safety Awareness Stair Climbing Assessment Evaluation Level of Assist On Stairs Standby Assistance Contact Guard Assistance 1 Person Assistance Devices Stair Climbing Assistive Devices Front Wheel Walker Technique/Endurance Stair Climbing Direction Ascend and Descend Stair Climbing Technique Step to Step Number of Steps Climbed 1 Query Text: Stair Climbing Set # Repetitions (reps) 2 M5 PT-IP Objective Assessments Start: 03/01/18 12:52 Freq: NEEDED Status: Active Protocol: Document 03/01/18 10:12 AB (Rec: 03/01/18 13:03 AB [id number]) Orientation Orientation/Cognition Level of Alertness Alert Orientation Name Age Birthday Month Date Year Day of Week Place Situation Safety Awareness Understands Safety Issues Gross Range of Motion Lower Extremity ROM Assessment Within Functional Limits Strength Lower Extremity Strength Assessment Bilaterally Impaired Comments Strength Comments RLE 4-/5 LLE 3+/5 Coordination Assessment Gross Coordination Gross Coordination WNL Sensation Assessment Sensation Gross Sensation WNL Muscle Tone Muscle Tone WNL Yes M6 PT-IP Treatment Start: 03/01/18 12:52 Freq: NEEDED Status: Active Protocol: Document 03/04/18 09:15 AB (Rec: 03/04/18 12:15 AB [id number]) Physical Therapy Treatment Education Education Provided Precautions Safety M7 PT-IP Assessment and Plan Start: 03/01/18 12:52 Freq: NEEDED Status: Active Protocol: Document 03/04/18 09:15 AB (Rec: 03/04/18 12:15 AB [id number]) PT Summary Assessment and Plan Potential Rehabilitation Potential Good Summary Impairments Pain ROM Strength Balance Coordination Sensation Bed Mobility Transfers Gait Activity Tolerance Progress Towards Goals Progressing Toward Goals Assessment Summary pt progressing well with mobility but continues to c/o increase LBP. pt plans to go home today with family to assist her. pt may go home when medically stable. Goals Bed Mobility Goal Standby Assistance Transfer Goal Standby Assistance Front Wheeled Walker Gait Goal Standby Assistance Front Wheel Walker Gait Distance 300 Other Goals up/down 1 step using FWW Days to Meet Goals 5 Frequency of Treatment Frequency Of Treatment Twice a Day Treatment Plan Physical Therapy Treatment Plan Bed Mobility Training Transfer Training Gait Training Therapeutic Exercise Balance Retraining Post Op Education Discharge Planning Hot or Cold Pack Neuromuscular Re-ed Coordination Retraining Manual Therapy Other Recommendations and Next Treatment ambulation Focus Recommendations To Nursing Amount of Assist Needed 1 Person Assist Discharge Recommendations PT Discharge Recommendations Home with Assistance
--- NOTE | 2018-03-04 10:15 | PM.DS.1 ---
History of Present Illness Date Patient Seen: 03/04/18 Time Patient Seen: 10:15 Chief complaint: [id number] Narrative: Hospital day 5, postop day 4 following L4-5 hardware removal with formed L3-4 revision laminectomy, XL IF and posterior fusion doing with screws by Dr. Diaz. Patient has progressed slowly with physical therapy. They feel she is more stable for being at home. Patient has sister who is a home health PT that will be helping her. She is receiving oxycodone for postop pain. She is on chronic methadone 30 mg b.i.d. being prescribed by pain clinic. Discharge Providers Date of admission: 02/28/18 08:51 Consults: 02/28/18 09:52 Consult to Pastoral Services Routine Comment: Would be nice if you could visit with her/anxiety Consult to Respiratory Therapy Evaluate & Treat Comment: BETTINA, no longer has CPAP, uses O2 most nights Physician Instructions: Evaluate and treat 02/28/18 17:01 Consult to Occupational Therapy Evaluate & Treat Comment: Physician Instructions: Evaluate and treat Consult to Physical Therapy Evaluate & Treat Comment: Physician Instructions: Evaluate and Treat Consult to Respiratory Therapy Evaluate & Treat Comment: Physician Instructions: Evaluate and treat 02/28/18 17:56 Consult to Pastoral Services Routine Comment: admisison assessment 02/15/18 11:34 Consult to Pastoral Services Routine Comment: Surgery 02/28/18 Discharge provider: Dontae Regan PA-C Discharge Date: 03/04/18 Summary Discharge Diagnosis: CC status post L4-5 hardware removal, L3-4 laminectomy, XLIF, posterior fusion with screws by Dr. Diaz. Hospital Course: Patient brought to hospital on 02/28/2018 for above noted surgery. Progress slowly with activity and physical therapy. Had initial pain management at difficulty but gradually improved. Ready for discharge home on postop day 4. Status at Discharge Cognitive/behavioral status at discharge: Alert, oriented no acute distress. Functional status at discharge: uses cane/walker Overall status at discharge: patient is progressing back to baseline Time Spent with Patient Less than 30 minutes Exam Vital Signs (past 8 hours): - 03/04/18 05:10 03/04/18 08:00 03/04/18 08:19 Temperature 97.5 F L 98.2 F Pulse Rate 74 76 Respiratory Rate 20 18 Blood Pressure 125/63 117/63 Pulse Oximetry 99 91 95 Fraction of Inspired Oxygen 21 Oxygen Delivery Method Room Air Oxygen Flow Rate 0 Narrative Exam Narrative: Back. Dressing to lumbar area is dry without drainage or inflammation. She does have some residual erythematous linear lesions in the area of the previous dressing from adhesive without signs of infection. Legs. No calf pain or swelling. Pulses and sensation symmetrical. Objective Labs Result Diagrams: 03/01/18 05:20 Discharge Plan Discharge Plan Patient Disposition: Home Discharge Med Rec/Prescriptions Prescriptions: New hydroxyzine pamoate 25 mg Capsule 25 mg PO Q4HR PRN (Reason: Nausea And Vomiting) Qty: 40 RF: 1 oxycodone 5 mg tablet 5 mg PO Q4-6H PRN (Reason: pain) Qty: 40 RF: 0 oxycodone 10 mg Tablet 10 mg PO Q3HR PRN (Reason: Pain, Severe (7-10)) Qty: 40 RF: 0 Continue nystatin 100,000 unit/gram Ointment See Label Instructions .ROUTE .COMPLEX RF: 0 methadone 10 mg Tablet 30 mg PO BID RF: 0 lisinopril 20 mg Tablet 20 mg PO DAILY RF: 0 aspirin 81 mg Tablet,Chewable 81 mg PO DAILY RF: 0 tizanidine 4 mg Tablet 4 mg PO Q6H PRN (Reason: muscle spasticity) Qty: 30 RF: 0 Discontinued oxycodone-acetaminophen 10-325 mg Tablet 1 tab PO Q6H PRN (Reason: Pain) RF: 0 Follow up/Referrals: Brandon Diaz MD [Physician] - (Follow up in 2 weeks at your previously scheduled post-op appointment.) Provider Discharge Instructions Diet: Diet as Tolerated Activity: weightbearing as tolerated, limit bending/twisting, lifting greater than 5 lbs Cold/Heat Therapy: May apply ice 20 minutes at a time to surgical site as needed for swelling/pain Skin/Wound/Dressing Care Report to your healthcare provider any signs of infection, such as:: chills, fever, night sweats, increased pain, unusual drainage and unusual redness Dressing: Keep dressing clean, dry, and intact. May shower with it in place, no soaking. Discharge Data Attending Provider: Brandon Diaz Admit Date/Time: 02/28/18 08:51 Quality VTE Deep Vein Thrombosis/Pulmonary Embolism Present on Admission: No
[2018-03-04 10:16] VITALS: O2SAT 96
--- NOTE | 2018-03-04 10:42 | OT.IP.TRT ---
Current Diagnoses Opioid use, unspecified, uncomplicated (02/28/18) Major depressive disorder, single episode, unspecified (02/28/18) Sleep apnea, unspecified (02/28/18) Other chronic pain (02/28/18) Spondylolisthesis, lumbar region (02/28/18) Spinal stenosis, lumbar region with neurogenic claudication (02/28/18) Arthrodesis status (02/28/18) Surgery Performed Operation Date: 02/28/18 10:15 Actual Procedures p L3-4 revision Laminectomy, Ant/Post Instru. Fusion & bone graft - Brandon Diaz MD Occupational Therapy Treatment Note M2 OT-IP Current Condition Start: 03/01/18 16:23 Freq: Status: Active Protocol: Document 03/01/18 16:15 PJM (Rec: 03/01/18 16:38 PJM [id number]) Occupational Therapy Current Condition Current Condition Evaluation Date 03/01/18 Treatment Diagnosis decreased self care,mobility s /p L3-4 revision lami w/ L3-4 ant/post fusion Diagnosis Onset Date 02/28/18 Post Operative Precautions Lumbar Precautions Log Roll No Twisting Limit Bending Lifting Restriction of 10 lbs Gait Belt above Incisional Area M3 OT- IP Subjective and Pain Start: 03/01/18 16:23 Freq: Status: Active Protocol: Document 03/04/18 10:27 [facility] (Rec: 03/04/18 10:42 [facility] [id number]) OT- Subjective Occupational Therapy Visit Type Type Treatment Note Visit Start Time 10:00 Visit Stop Time 10:25 Total Visit Minutes 25 Occupational Therapy Visit Comments Patient Comments Pt agreeable to shower. OT Pain Assessment Pain When Pain Assessed At Rest Pain Present Pain Present Denied Pain M4 OT- IP ADL's Start: 03/01/18 16:23 Freq: Status: Active Protocol: Document 03/04/18 10:27 [facility] (Rec: 03/04/18 10:42 [facility] [id number]) OT ADL-Dressing General Eval Upper Body Dressing Ability Independent Lower Body Dressing Ability Standby Assistance Comments OT Dressing Comments SBA for safety while standing to doff socks, recommended to sit to doff/mikie socks. In addition educated to use to increase ease, but pt able to do LB dressing vis crossing her legs over. Pt recommended to mikie left LE first as has more trouble with left versus right for moving. OT ADL-Bathing Bathing Type Bathing Type Shower General Evaluation Bathing Ability Minimal Assistance Areas Needing Assistance Retrieving/Setting Up Items Devices Bathing Equipment Shower Chair without Arms Grab Bars Comments OT Bathing Comments Pt able to shower while sitting down for most of the task. Pt able to stand with minimal use of grab bars to shower. Pt just needing vc to slow down. Pt needing assist to wash/dry her back. M5 OT- IP IADL's Start: 03/01/18 16:23 Freq: Status: Active Protocol: Document 03/01/18 16:15 PJM (Rec: 03/01/18 16:38 PJM [id number]) OT-Instrumental Activities of Daily Living Deficits IADL Deficits Identified Deficits Home Safety Awareness Awareness of Need for Assistance at Home Good Awareness Ability to Problem Solve Emergency Able to Problem Solve Situations Medication Management Medication Management No Deficits Identified Money Management Money Management No Deficits Identified Meal Preparation Meal Preparation Caregiver Provides Assist Meal Preparation Comments family to assist until pt able Apprentice Photographer Apprentice Photographer Caregiver Provides Assist Apprentice Photographer Comments family to assist until pt able Driving Driving Caregiver Provides Assist Driving Comments family to assist until pt able M6 OT- IP Functional Cognition Start: 03/01/18 16:23 Freq: Status: Active Protocol: Document 03/04/18 10:27 [facility] (Rec: 03/04/18 10:42 [facility] [id number]) Cognitive Factors Limiting Selfcare Function Cognitive Ability Level of Alertness Alert Patient Orientation Name Age Birthday Month Date Year Day of Week Place Situation Attention Span Ability Capable of Focused Attention Capable of Sustained Attention Ability to Follow Commands Able to Follow Multi-Step Commands Memory Description No Deficits Noted Safety Awareness Underestimates Need for Assistance Cognitive Comments Cognitive Assessment Comments Pt able to follow multiple commands and mainly just needing vc to slow down as pt tends to be a bit impulsive. M7 OT- IP Mobility and Balance Start: 03/01/18 16:23 Freq: Status: Active Protocol: Document 03/04/18 10:27 [facility] (Rec: 03/04/18 10:42 [facility] [id number]) OT- Bed Mobility Assessment Sit to Supine Sit to Supine Assist Standby Assistance OT-Transfer Assessment Sit to and From Stand Sit to and from Stand Standby Assistance Transfers Transfer Ability Standby Assistance Technique Transfer Destination Bed Shower Stall Transfer Technique Stand Step Pivot Devices Transfer Assistive Devices None Gait Belt Front Wheeled Walker Comments Mobility Comments Pt able to walk in the room with out the FWW with good safety , but tends to more quickly and needing vc to slow down. Pt would benefit from FWW for greater distance and uneven terrain. OT- Balance Assessment Sitting Balance and Reactions Static Sitting Balance Ability Normal Dynamic Sitting Balance Ability Normal Standing Balance and Reactions Static Standing Balance Ability Normal Dynamic Standing Balance Ability Good M8 OT- IP Objective Assessments Start: 03/01/18 16:23 Freq: Status: Active Protocol: Document 03/01/18 16:15 PJM (Rec: 03/01/18 16:38 PJM [id number]) OT Gross Range of Motion Upper Extremity Range of Motion Assessment Within Functional Limits OT Strength Upper Extremity Strength Assessment Within Functional Limits OT- Coordination Assessment Comments Coordination Comments BUE WFL OT-Muscle Tone Assessment Muscle Tone WNL Yes OT Sensation Assessment Comments Summary Comments Pt denies sensory deficits in BUE's Edema Edema Absent M9 OT- IP Assessment and Plan Start: 03/01/18 16:23 Freq: Status: Active Protocol: Document 03/04/18 10:27 [facility] (Rec: 03/04/18 10:42 [facility] [id number]) OT Summary Assessment and Plan Potential Rehabilitation Potential Good Analytic Complexity at Evaluation Low Summary OT Impairments Functional Cognition Bathing Progress Towards Goals Progressing Toward Goals Assessment Summary Pt moving well today and only needing assist to wash her back and vc to slow down. Pt looking to go home today. Goals Days to Meet Goals 1 Frequency of Treatment Frequency Of Treatment Once a Day Treatment Plan OT Treatment Plan Patient/Family Education Discharge Planning Discharge Recommendations OT Discharge Recommendations Home with Assistance Home Equipment Needs pt has all necessary equipt
--- NOTE | 2018-03-04 11:45 | PC.NURSE ---
Addendum entered by Reny Osorio R.N. 03/04/18 13:30: Reviewed discharge packet with patient. S/S of infection, prescription, medications, mobility, no lifting over 5 pounds, diet, preventing constipation, keeping dressing dry and intact. Pt states has follow up appointment already, cannot remember date, states has packet at home, follow up in 2 weeks post op, pt is aware. Pt's sister is coming to scrap picker pt for discharge. Original Note: Day Shift- Pt OOB with SBA using walker. Pt attempted to walk to BR without walker and was placing her hand on the wall bracing herself, Reminded pt that she needs to use the walker for stability support. She agreed. Pt had shower with OT, PIV removed from left AC. Lower back dressing removed for small amount of old sang drainage, removed without difficulty or without injuring skin further from previous skin issue from tape. Incisions X2 well approximated, no S/S of infection, area cleansed with NS, and coversite plus dressing placed per verbal instruction by FERNANDO Barrios. Pt toelrated well. Pt pain satisfactory at 6-8/10 to lower back surrounding surgical site. PRN oxycodone given at 0815/1110. Pt anticipates her sister picking her up around [id number] for discharge to home. Pt states she has all her belongings.
[2018-03-04 12:12] VITALS: BP 131/56; PULSE 81
== END 2018-03-04 13:38 | disposition home or self-care (01) | DRG 455 ==
PROVIDERS: Admitting Provider Orthopaedic Surgery; Visit Provider Orthopaedic Surgery
PROC: 0SG00A0 Fusion of Lumbar Vertebral Joint with Interbody Fusion Device, Anterior Approach, Anterior Column, Open Approach (ICD-10-PCS; CPT 22558; principal; 2018-02-28 10:15)
DX: M48.062 Spinal stenosis, lumbar region with neurogenic claudication (principal); M43.16 Spondylolisthesis, lumbar region; E11.9 Type 2 diabetes mellitus without complications; F32.9 Major depressive disorder, single episode, unspecified; F17.210 Nicotine dependence, cigarettes, uncomplicated; G89.29 Other chronic pain
CPT/HCPCS: 36415; 72100; 76000; 85014; 85018; 94760; 94762; 97116; 97162; 97165; 97530; 97535; 99406; C1776; C1788; J0131; J0330; J0595; J1040; J1170; J2060; J2250; J2274; J2405; J2704; J3010

== ENCOUNTER → 2018-03-29 11:48 | Outpatient (CLI) | payer MEDICARE, SELFPAY ==
[2018-02-28 09:39] VITALS: BMI 34.7
--- NOTE | 2018-03-29 12:00 | DI.CT.S_ITS ---
PROCEDURE: CT LUMBAR SPINE WO CON INDICATIONS: SPINAL STENOSIS TECHNIQUE: Noncontrast 3 mm thick sections acquired from the T12 level to the sacrum. Sagittal and coronal reformats were constructed. For radiation dose reduction, the following was used: automated exposure control. COMPARISON: [facility], CR, XR LUMBAR SPINE 2-3V, 02/28/2018, 10:50. FINDINGS: Image quality: Excellent. Bones: No acute vertebral body compression fractures. No suspicious lytic or blastic bony lesions. Central spinal caliber is of normal overall caliber. No pars defects. T12-L1: Normal. L1-L2: Normal. L2-L3: The disc height is well-preserved. Mild disc bulge is seen. Mild facet joint hypertrophy is seen. No significant neural foraminal narrowing is seen. Minimal central canal narrowing is seen. L3-L4: Postoperative changes are seen at this level, bilateral pedicle screws and vertical fixation rods. The screws appear well placed. A disc spacer can be seen. There has been removal of portions of the posterior elements. Bone grafting material is noted. No findings of hardware failure or hardware loosening are seen. Mild grade 1 anterolisthesis is seen at this level. Mild to moderate loss of disc height is seen. Mild to moderate bulge is seen, which is eccentric to the left. There is moderate bilateral neural foraminal narrowing seen, left worse than right. Mild central canal narrowing is seen. L4-L5: Prior postoperative changes are seen, with a disc spacer with vertebral body fusion. There has been removal of portions of the posterior elements. Prior screw tracts can be seen at L5. There is moderate left-sided and moderate to severe right-sided neural foraminal narrowing seen. The central canal is widely patent. L5-S1: Fusion of the vertebral bodies is seen at this level, with severe loss of disc height. Mild bilateral neural foraminal narrowing is seen. The central canal is widely patent. Soft tissues: Within the posterior subcutaneous fat, there are 2 fluid collections. One is seen on the left measuring 5.2 x 2.8 cm in greatest axial dimension, with a craniocaudal extent 8 cm. A smaller fluid collection is seen on the right measuring 3.1 x 2.6 x 3.5 cm. This fluid collection demonstrates a fat/fluid level, as on series 7 image 6. No contrast was given, so enhancement characteristics are not assessed. No retroperitoneal masses or hematomas. Visualized aorta is normal in caliber. Cholecystectomy clips are seen. A 2 mm nonobstructing left-sided kidney stone is incidentally noted. IMPRESSION: Fluid collections are seen within the posterior postoperative subcutaneous fat, with the largest measuring up to 8 cm. Differential diagnosis includes postoperative seromas and potentially abscess. Please correlate with physical examination findings, patient presentation, and laboratory values. Lower lumbar spine postoperative changes are seen, without jessika abnormality. Lumbar spine degenerative changes are seen, including moderate to severe right-sided neural foraminal narrowing at L4-L5 and moderate bilateral neural foraminal narrowing at L3-L4. Incidental note is made of: Cholecystectomy 2 mm nonobstructing left-sided kidney stone Dictated by: Duncan Horton M.D. on 03/29/2018 at 12:11 Approved by: Duncan Horton M.D. on 03/29/2018 at 12:21
[2018-03-29 12:45] LABS: Add Manual Diff / Slide Review NO; Basophils Absolute Auto 0 /uL (0-100); Basophils Percent Auto 0.6 % (0-2); Eosinophils Absolute Auto 400 /uL (0-450); Eosinophils Percent Auto 5.8 % (2-4); Hemoglobin 13.3 g/dL (12.0-16.0); Lymphocytes Absolute Auto 1900 /uL (1100-4500); Lymphocytes Percent Auto 29.9 % (25-40); Mean Corpuscular HGB Conc 33.3 % (30-36); Mean Corpuscular Hemoglobin 31.5 PG (26-34); Mean Corpuscular Volume 94.7 fL (80-100); Monocytes Absolute Auto 400 /uL (0-900); Monocytes Percent Auto 5.5 % (3-14); Neutrophils Absolute Auto 3700 /uL (1500-7000); Neutrophils Percent Auto 58.2 % (50-75); Platelet Count 255 X10^3/uL (150-400); Red Blood Cell Count 4.22 X10^6/uL (4.0-5.2); Red Cell Distribution Width 13.6 % (11.6-14.8); White Blood Cell Count 6.4 X10^3/uL (4.5-11.0)
[2018-03-29 13:02] LABS: C-Reactive Protein Quant 2.5 mg/dL (<1.0)
[2018-03-29 13:29] LABS: Erythrocyte Sedimentation Rate 47 MM/HR (0-20)
== END ==
PROVIDERS: Visit Provider Orthopaedic Surgery
DX: M48.061 Spinal stenosis, lumbar region without neurogenic claudication (principal); M47.816 Spondylosis without myelopathy or radiculopathy, lumbar region; Z98.1 Arthrodesis status
CPT/HCPCS: 36415; 72131; 85025; 85651; 86140

== ENCOUNTER 2018-03-29 20:11 | Inpatient (IN) | payer MEDICARE, SELFPAY ==
[2018-02-28 09:39] VITALS: BMI 34.7
[2018-03-29] VITALS (17 sets, daily range): BP systolic 89–154; BP diastolic 51–86; PULSE 74–105; RESP 10–18; TEMP 36.3–36.8; O2SAT 9–99; BMI 33.7
--- NOTE | 2018-03-29 16:56 | PM.PREOP ---
Pre-operative Note Interval Note History & Physical reviewed/Exam performed by Physician: Yes Changes to H&P: No
[2018-03-29] MEDS: LACTATED RINGERS 1,000 ML 42 ML IV (17:01)
--- NOTE | 2018-03-29 17:18 | SUR.PREOP ---
Two IV attempts with lidocaine per patient by Salma unsuccessful.
[2018-03-29] MEDS: FAMOTIDINE 20 MG/50 ML PIGGYBACK 200 MG IV (17:21)
[2018-03-29] MEDS: VANCOMYCIN 1,000 MG/200 ML FROZ.PIGGY 200 MG IV (17:57)
--- NOTE | 2018-03-29 18:00 | SUR.OPER ---
Prone on spine table, head in foam head support, padded chest and pelvic supports, gel pad at knees, lower legs supported by pillows; nipples, genitalia and toes free of pressure, arms secured on foam padded arm boards at <90 degrees abduction. Tape over blanket at thigh secured to table.
[2018-03-29] MEDS: VANCOMYCIN 1,000 MG VIAL 1000 MG TOP (18:09)
--- NOTE | 2018-03-29 18:47 | P.OP_ITS ---
Operative Date/Time/Diagnoses Date of procedure: 03/29/18 Time of procedure: 18:44 Pre-op diagnosis: Postoperative lumbar wound infection Post-op diagnosis: same Procedure & Clinicians Procedure: Irrigation debridement of deep lumbar wound Same procedure as scheduled: Yes Indications: 67-year-old female who had increasing pain 5 weeks after her lumbar surgery. She was found to have increased infection labs in large fluid collections on her CT scan. This felt that she had a postoperative wound infection and that should be debrided. Risks and benefits of surgery discussed appropriate consents were obtained. Click Yes if Unassisted: Yes Anesthesia Type: General Operative Notes Findings: None Closure Type: primary Specimen(s): other (Wound cultures) Estimated Blood Loss (mL): 20 Procedure in detail: Patient brought to the operating room and intubated on the stretcher. She was rolled over to the well-padded prone position on the Sampson table. The back was prepped and draped in the standard sterile fashion. A time- out was performed. We started on the left side and used a scalpel to open up her incision. We then used Bovie to go through some of the superficial fat tissue. Approximately 1.5 cm down we encountered a large fluid collection matching up to her CT scan. This was cultured and sent to microbiology. We then started her IV antibiotics. We then went to the right side. Again we had used a scalpel to open up it and used the Bovie to go approximately 1.5 cm deep before encountering a large fluid pocket. Both wounds were then sharply debrided with a Puente through the subcutaneous tissue all of the large fat layer and all the way down to the muscle fascia. The wounds were copiously irrigated with pulsatile lavage. We then reinspected. The muscle fascia layer was intact in both wounds corresponding with the CT scan. We then irrigated some more. This completed the incisional debridement. A Hemovac drain was placed in each wound. We loosely reapproximated some of the subcutaneous fat tissue. The superficial tissue was closed. The skin was closed with interrupted retention sutures. Sterile dressing was placed. She was then rolled over, extubated, and brought to recovery room with no complications. Complications: none Condition: stable Disposition: PACU Plan for aftercare: Inpatient for IV antibiotics. Mobilize with therapy.
[2018-03-29] MEDS: HYDROMORPHONE 2 MG INJ 0.5 MG IV ×2 (18:58→19:02)
[2018-03-29] MEDS: LORazepam 2 MG/ML SYRINGE 0.5 MG IV (19:05)
[2018-03-29] MEDS: hydrOXYzine 50 MG/ML INJ 25 MG IM (19:14)
[2018-03-29] MEDS: MEPERIDINE 50 MG/ML 25 MG IV (19:24)
[2018-03-29] MEDS: LACTATED RINGERS 1,000 ML 125 ML IV (20:55)
[2018-03-30] VITALS (7 sets, daily range): BP systolic 104–136; BP diastolic 56–77; PULSE 74–88; RESP 16–18; TEMP 36.6–37.1; O2SAT 89–96
--- NOTE | 2018-03-30 03:26 | PC.NURSE ---
Irrigator Sprinkling System Note: 0000: Sleeping, arousable. Vital signs stable. IV in place in lt AC with LR infusing at 125cc/hr. Remains on O2 2L/NC. Increased at this time to 3L due to her home dose being 3L per patient. Hemovacs secured to pt gown. 0030: Assisted up to bedside commode, voided. Pt tolerated well. Rt hemovac tubing disconnected from hemovac suction; tubing cleansed and reconnected. 0200: Awake, assisted up to bedside commode, voided. Pt is alert, oriented X3. Lt hemovac tubing disconnected from hemovac suction; tubing cleansed and reconnected. Tubing on both rt and lt hemovacs secured with tape to prevent disconnection.
[2018-03-30] MEDS: VANCOMYCIN 1,250 MG in SODIUM CHLORIDE 0.9% 250 ML IV (06:15)
[2018-03-30 06:30] LABS: Blood Urea Nitrogen 8 mg/dL (7-17); Calcium 8.6 mg/dL (8.4-10.2); Carbon Dioxide 28 mmol/L (22-32); Chloride 101 mmol/L (98-107); Estimated Glomerular Filt Rate > 60.0 mL/min (>60); Glucose 135 mg/dL (80-110); HEMOLYSIS 22 (0-50); Sodium 136 mmol/L (137-145)
[2018-03-30] MEDS: OXYCODONE IR 10 MG TABLET 20 MG PO ×4 (06:53→21:29)
--- NOTE | 2018-03-30 07:26 | PM.PNPO.1 ---
Subjective Date Patient Seen: 03/30/18 Time Patient Seen: 07:26 Interval history: She is feeling much better. Leg is feeling better back is much better. Slept well last night Exam Vital Signs (past 8 hours): - 03/29/18 23:50 03/30/18 06:48 Temperature 97.9 F 98.2 F Pulse Rate 79 75 Respiratory Rate 17 16 Blood Pressure 113/65 121/66 Pulse Oximetry 98 96 Oxygen Delivery Method Nasal Cannula Oxygen Flow Rate 4 Const Orientation: alert and oriented x3 Back/Spine/Pelvis Other: Dressing clean dry and intact. 10 mL output in drain Objective Labs Result Diagrams: 03/30/18 05:45 Labs: Laboratory Results - last 24 hr 03/30/18 05:45 Sodium 136 L Potassium 4.0 Chloride 101 Carbon Dioxide 28 BUN 8 Creatinine 0.40 L Estimated GFR > 60.0 BUN/Creatinine Ratio 20.0 Glucose 135 H Calcium 8.6 Assessment & Plan Post-op Postoperative Procedures Operation Date: 03/29/18 17:30 Actual Procedures Side Surgeon p Incision and Drainage Wound/Spine Brandon Diaz MD she had mildly elevated infection labs. Her Gram stain did not show any bacteria. We will wait to see culture results and maintain her on IV antibiotics in the meantime. She will need a PICC line today. Quality VTE Deep Vein Thrombosis/Pulmonary Embolism Present on Admission: No
--- NOTE | 2018-03-30 09:15 | CM.DANOTE ---
DCP: Case received, EMR reviewed and met with patient. Introduced self and role. DCP template completed with information currently available. Patient is a 67 year old female who admitted yesterday evening to the care of the hospitalist team. PCP: Dr. Page in [place]. Payer: confirmed: [employer] Medicare. Patient came to hospital with a postoperative lumbar wound infection. She had debridement of deep lumbar wound. This was secondary to past lumbar surgery. Is getting antibiotics at this time. Discussed case this morning with Milagro Beyer/orthopedist, and stated, she should be able to go home in next day or 2. Met briefly with patient, alert and oriented. Has a FWW in place. Patient resides in [facility] with her sister, Martha, and her mother as well. She stated that she has good support at home. P: DCP to continue to follow. Patient should be able to go home when she is medically stable. Jennifer Villalpando RN/Interchange Agent
[2018-03-30] MEDS: METHADONE 10 MG TABLET 20 MG PO ×2 (09:28→20:30)
[2018-03-30] MEDS: DOCUSATE 100 MG CAPSULE PO ×2 (09:28→20:27)
[2018-03-30] MEDS: ASPIRIN 81 MG TAB PO (09:28)
--- NOTE | 2018-03-30 09:33 | OT.IP.TRT ---
Current Diagnoses Spondylolisthesis, lumbar region (03/29/18) Spinal stenosis, lumbar region with neurogenic claudication (03/29/18) Infection following a procedure, other surgical site, initial encounter (03/29/18) Arthrodesis status (03/29/18) Other specified postprocedural states (03/29/18) Surgery Performed Operation Date: 03/29/18 17:30 Actual Procedures p Incision and Drainage Wound/Spine - Brandon Diaz MD Occupational Therapy Treatment Note M3 OT- IP Subjective and Pain Start: 03/30/18 09:27 Freq: Status: Active Protocol: Document 03/30/18 09:28 [facility] (Rec: 03/30/18 09:33 [facility] [id number]) OT- Subjective Occupational Therapy Visit Type Type Administrative Note Notes Attempted OT eval with pt. Pt here for I and D, was previously here for back surgery 02/28/18 and received OT /PT at the time. Pt states feels does not need any therapy services at the time as has a very supportive family, someone to assist at home at all time, and has all equipment needs. Therefore discharge OT eval orders.
--- NOTE | 2018-03-30 09:50 | PC.NURSE ---
Addendum entered by Martha Soliz R.N. 03/30/18 13:50: PAIN - after seated in chair, states back pain incr pain 7 on scale 0/10, given 20mg po oxycodone IR with yogurt. Original Note: Addendum entered by Martha Soliz R.N. 03/30/18 13:18: MS - logrolled to l side, assist x 1 person up to bsc, void, ambul chair, gait steady, pain well managed and declines any addl meds, ice pack to back applied. Original Note: Addendum entered by Martha Soliz R.N. 03/30/18 12:11: RESP/PAIN - sitting up jairo diet, states her pain is managed with earlier medications and declines addl meds at this time, 02 2l 95%, pt using IS to 2500, placed on RA. Original Note: AM NOTE - pt is drowsy this am, responds appropriately, 2l 93%, removed for breakfast and when up bsc, 02 did drift to 89% when back in bed and dozing, replaced 2l, large dsg back intact, hemovacs x2 compressed with some serosang in tubing, up x 1-2 person to bsc, void, pain improved after earlier oxycodone, 4 on scale 0/10, Tatiana Cerda in this am for picc placement.
--- NOTE | 2018-03-30 10:15 | DI.RAD.S_ITS ---
PROCEDURE: XR CHEST FOR PICC 1V INDICATIONS: picc placement COMPARISON: None. FINDINGS: PICC was placed by the intravenous therapy team from the left side. Fluoroscopic spot film demonstrates tip of PICC in the distal SVC. Surgical clips in the left chest and cervical spine disc prosthesis noted. IMPRESSION: Tip of PICC lies within the distal SVC. Dictated by: Peace Barboza MD, PhD on 03/30/2018 at 10:37 Approved by: Peace Barboza MD, PhD on 03/30/2018 at 10:37
--- NOTE | 2018-03-30 10:36 | PT.IPTN ---
Current Diagnoses Spondylolisthesis, lumbar region (03/29/18) Spinal stenosis, lumbar region with neurogenic claudication (03/29/18) Infection following a procedure, other surgical site, initial encounter (03/29/18) Arthrodesis status (03/29/18) Other specified postprocedural states (03/29/18) Surgery Performed Operation Date: 03/29/18 17:30 Actual Procedures p Incision and Drainage Wound/Spine - Brandon Diaz MD Physical Therapy Treatment Note M3 PT-IP Subjective Start: 03/30/18 10:33 Freq: NEEDED Status: Active Protocol: Document 03/30/18 10:33 AB (Rec: 03/30/18 10:36 AB [id number]) Subjective Physical Therapy Visit Type Type Patient Unavailable Notes pt was just admitted last february for lumbar surgery and now admitted for I&D for the back. pt stated that she is moving better than the last time she was here and does not think she needs therapy. pt requested to d/c PT order and agreed to walk with nursing.
[2018-03-30] MEDS: VANCOMYCIN 1,250 MG in SODIUM CHLORIDE 0.9% 250 ML 200 ML IV (18:05)
[2018-03-30] MEDS: SENNOSIDES 8.6 MG TABLET 17.2 MG PO (20:27)
[2018-03-31] VITALS (8 sets, daily range): BP systolic 100–131; BP diastolic 54–76; PULSE 75–83; RESP 15–18; TEMP 36.3–36.9; O2SAT 90–95
[2018-03-31] MEDS: OXYCODONE IR 10 MG TABLET 20 MG PO ×5 (00:20→22:34)
--- NOTE | 2018-03-31 01:29 | PC.NURSE ---
Instructional Systems Specialist Note: 0015: Awake, resting in bed. Pt states her pain level is starting to increase. Vital signs stable. Dressing cdi, with both hemovacs intact and compressed. Small amt serosanguinous drainage in each hemovac. PICC in lt upper arm intact, with dressing cdi. Pt able to stand and walk with sba. 0020: Medicated for pain with Oxycodone 20mg po.
[2018-03-31] MEDS: VANCOMYCIN 1,250 MG in SODIUM CHLORIDE 0.9% 250 ML IV ×2 (06:59→18:45)
[2018-03-31 07:28] LABS: Estimated Glomerular Filt Rate > 60.0 mL/min (>60)
--- NOTE | 2018-03-31 08:47 | PM.PNPO.1 ---
Subjective Date Patient Seen: 03/31/18 Time Patient Seen: 08:47 Interval history: Hospital day 3, postop day 2 following lumbar wound I and D. states it she is been up and around in the room. She does have a PICC line in. She is currently receiving vancomycin. Wound cultures still pending. Her Hemovac drains are dry. She is on methadone 20 mg b.i.d. and oxycodone 20 mg for breakthrough pain. Exam Vital Signs (past 8 hours): - 03/31/18 04:19 Temperature 98.4 F Pulse Rate 75 Respiratory Rate 15 Blood Pressure 110/59 L Pulse Oximetry 94 Oxygen Delivery Method Nasal Cannula Oxygen Flow Rate 2 Narrative Exam Narrative: Back. Dressing to lumbar area is dry without drainage or inflammation. Hemovacs in place. Legs. No calf pain or swelling. Pulses symmetrical. Good sensation to lower legs. Objective Labs Result Diagrams: 03/31/18 07:14 Labs: Laboratory Results - last 24 hr 03/31/18 07:14 Creatinine 0.50 L Estimated GFR > 60.0 Assessment & Plan Post-op Postoperative Procedures Operation Date: 03/29/18 17:30 Actual Procedures Side Surgeon p Incision and Drainage Wound/Spine Brandon Diaz MD Plan: Will change her lumbar dressing to a CovRsite. Hemovac drains will be removed and op site placed. Waiting on final results of cultures before discharge plan. box office manager states that if she does need ongoing IV antibiotic that she would need to go to SNF as her insurance does not cover home IV. Quality VTE Deep Vein Thrombosis/Pulmonary Embolism Present on Admission: No
[2018-03-31] MEDS: METHADONE 10 MG TABLET 20 MG PO ×2 (09:14→20:29)
[2018-03-31] MEDS: DOCUSATE 100 MG CAPSULE PO ×2 (09:15→20:29)
[2018-03-31] MEDS: ASPIRIN 81 MG TAB PO (09:15)
--- NOTE | 2018-03-31 10:00 | CM.DPC ---
DCP: continued: case received and spoke early this morning with ortho FERNANDO Regan. At that time it was unclear if pt would need IV antibiotics at d/c and hand off note from DCP team had indicated pt had Medicare/[employer] insurance which would make the d/c to home financially difficult if pt needed IV antibiotics. In prep for morning Team Rounds noted that face sheet showed [employer] plan as the insurance. Discussed with UR MARTIN Herrmann and confirmed this is correct. Pt would thus likely have a home IV infusion benefit if need be. At this point it is unclear still if IV antibiotics will be needed at d/c....cultures and sensitivities are pending. Will be following as more is know. If on oral medications at d/c plan at this time is for home setting.
--- NOTE | 2018-03-31 13:49 | PM.PNPO.1 ---
Subjective Date Patient Seen: 03/31/18 Time Patient Seen: 13:49 Interval history: Back feeling better. Reports muscle soreness to touch across right upper chest above breast. no SOB or radiating pain. This has been present since surgery. Exam Vital Signs (past 8 hours): - 03/31/18 08:40 03/31/18 09:17 03/31/18 11:08 Temperature 97.5 F L 97.3 F L Pulse Rate 78 82 Respiratory Rate 18 18 Blood Pressure 111/54 L 111/54 L 109/63 Pulse Oximetry 90 L 90 L Oxygen Delivery Method Nasal Cannula Oxygen Flow Rate 0 Const Orientation: alert and oriented x3 Chest Other: tender above right breast 20cm region Objective ECG Impression: RBBB, L fasicular block, reviewed by Dr Carter, no acute changes from 11/01/17 Labs Result Diagrams: 03/31/18 07:14 Labs: Laboratory Results - last 24 hr 03/31/18 07:14 Creatinine 0.50 L Estimated GFR > 60.0 NGTD on cultures Assessment & Plan Post-op Postoperative Procedures Operation Date: 03/29/18 17:30 Actual Procedures Side Surgeon p Incision and Drainage Wound/Spine Brandon Diaz MD Most likely chest tenderness is from laying on the chest pad on the surgical table. Not felt to be cardiac. Plan to wait for finals on cultures tomorrow. If no growth, DC home empirically on Levaquin 750 qD x 10 days. Quality VTE Deep Vein Thrombosis/Pulmonary Embolism Present on Admission: No
[2018-03-31] MEDS: VANCOMYCIN TROUGH 1 REQUEST MISC (17:37)
--- NOTE | 2018-03-31 17:40 | PC.NURSE ---
Checking [facility] ACHS with no coverage ordered. BG at lunch 278. BG at dinner 312. Called construction craft laborer physician Dr. Maldonado for orders. Low dose sliding scale novolog ordered to start at 2100 tonight.
[2018-03-31 18:38] LABS: Vancomycin Trough 10.1 ug/mL (10-20)
[2018-03-31] MEDS: SENNOSIDES 8.6 MG TABLET 17.2 MG PO (20:29)
[2018-03-31] MEDS: INSULIN ASPART 100 UNIT/ML INSULN PEN SUBCUT (20:34)
[2018-04-01 01:26] VITALS: BP 116/40; PULSE 73; RESP 17; TEMP 36.3; O2SAT 93
[2018-04-01] MEDS: OXYCODONE IR 10 MG TABLET 20 MG PO ×2 (01:34→08:42)
--- NOTE | 2018-04-01 01:55 | PC.NURSE ---
Patient is alert and oriented. Breath sounds CTA with RA sat of 93%. HRR. Denies nausea. BT present and abdomen is soft. Denies dysuria, frequency or urgency. Is independent with mobility. Walks independently with walker and is steady on feet. Dressings to back are CDI. States pain is currently 6/10 so medicated with Oxycodone. CMS intact. Refuses SCD's. Fall risk score is moderate.
[2018-04-01] MEDS: VANCOMYCIN 1,250 MG in SODIUM CHLORIDE 0.9% 250 ML IV (02:50)
[2018-04-01 08:00] VITALS: BP 131/68; PULSE 70; RESP 18; TEMP 36.6; O2SAT 96
[2018-04-01] MEDS: LISINOPRIL 20 MG TABLET PO (08:43)
[2018-04-01] MEDS: ASPIRIN 81 MG TAB PO (08:44)
[2018-04-01] MEDS: DOCUSATE 100 MG CAPSULE PO (08:44)
[2018-04-01] MEDS: METHADONE 10 MG TABLET 20 MG PO (08:56)
--- NOTE | 2018-04-01 09:26 | PM.DS.1 ---
History of Present Illness Date Patient Seen: 04/01/18 Time Patient Seen: 09:26 Chief complaint: [id number] I&D COMPLEX POSTOP WOUND INFECTION Narrative: Hospital day 4, postop day 3 following lumbar wound I and D by Dr. Diaz. Patient is remained stable. Back pain improved. She has been getting IV vancomycin through a PICC line. Wound culture final notes no growth. She is taking methadone 20 mg b.i.d. and oxycodone 20 mg for breakthrough pain. Patient desired to go home. Discharge Providers Date of admission: 03/29/18 20:11 Consults: 03/29/18 17:00 Consult to Respiratory Therapy Evaluate & Treat Comment: Physician Instructions: Evaluate and treat 03/29/18 20:04 Consult to Occupational Therapy Evaluate & Treat Comment: Physician Instructions: Evaluate and treat Consult to Physical Therapy Evaluate & Treat Comment: Physician Instructions: Evaluate and Treat Discharge provider: Dontae Regan PA-C Discharge Date: 04/01/18 Summary Discharge Diagnosis: Status post lumbar wound I and D. Hospital Course: Patient brought to hospital on 03/29/2018 for above noted surgery. She developed a postoperative abscess. Had superficial wound I and D done. Was treated with IV vancomycin until culture results return. Culture noted no growth. Patient discharged home on postop day 3 on oral antibiotic. Status at Discharge Cognitive/behavioral status at discharge: Alert, oriented no acute distress Functional status at discharge: independent ambulation Overall status at discharge: patient is progressing back to baseline Time Spent with Patient Less than 30 minutes Exam Vital Signs (past 8 hours): Oxygen Delivery Method Room Air Oxygen Flow Rate 0 Narrative Exam Narrative: Back. CovRsite dressing to lumbar incision is dry without drainage or inflammation. Op site dressings to the Hemovac sites are dry without drainage or inflammation. Objective Labs Result Diagrams: 03/31/18 07:14 Labs: Laboratory Results - last 24 hr 03/31/18 17:30 Vancomycin Trough 10.1 Discharge Plan Discharge Plan Patient Disposition: Home Discharge comment: Discharged home today after PICC line at [place]. Discharge Med Rec/Prescriptions Prescriptions: New levofloxacin 750 mg tablet 750 mg PO DAILY Qty: 10 RF: 0 Continued diazepam 5 mg Tablet 2.5 mg PO BID-QID PRN (Reason: muscle relaxation) RF: 0 nystatin 100,000 unit/gram Ointment See Rx Instructions .ROUTE .COMPLEX RF: 0 methadone 10 mg Tablet 20 mg PO BID RF: 0 lisinopril 20 mg Tablet 20 mg PO DAILY RF: 0 aspirin 81 mg Tablet,Chewable 81 mg PO DAILY RF: 0 tizanidine 4 mg Tablet 4 mg PO Q6H PRN (Reason: muscle spasticity) Qty: 30 RF: 0 oxycodone 10 mg Tablet 10 mg PO Q3HR PRN (Reason: Pain, Severe (7-10)) Qty: 40 RF: 0 Follow up/Referrals: Brandon Diaz MD [Physician] - (Follow up with Dr. Diaz in 10 days.) Provider Discharge Instructions Diet: Diet as Tolerated Activity: Ambulate as tolerated. Avoid excessive bending or twisting of lumbar spine. Skin/Wound/Dressing Care Report to your healthcare provider any signs of infection, such as:: chills, fever, night sweats, increased pain, unusual drainage and unusual redness Dressing: Keep CovRsite dressing dry and clean. Discharge Data Attending Provider: Brandon Diaz Admit Date/Time: 03/29/18 20:11 Quality VTE Deep Vein Thrombosis/Pulmonary Embolism Present on Admission: No
--- NOTE | 2018-04-01 09:29 | P.DS_ITS ---
History of Present Illness Date Patient Seen: 04/01/18 Time Patient Seen: 09:26 Chief complaint: [id number] I&D COMPLEX POSTOP WOUND INFECTION Narrative: Hospital day 4, postop day 3 following lumbar wound I and D by Dr. Diaz. Patient is remained stable. Back pain improved. She has been getting IV vancomycin through a PICC line. Wound culture final notes no growth. She is taking methadone 20 mg b.i.d. and oxycodone 20 mg for breakthrough pain. Patient desired to go home. Discharge Providers Date of admission: 03/29/18 20:11 Consults: 03/29/18 17:00 Consult to Respiratory Therapy Evaluate & Treat Comment: Physician Instructions: Evaluate and treat 03/29/18 20:04 Consult to Occupational Therapy Evaluate & Treat Comment: Physician Instructions: Evaluate and treat Consult to Physical Therapy Evaluate & Treat Comment: Physician Instructions: Evaluate and Treat Discharge provider: Dontae Regan PA-C Discharge Date: 04/01/18 Summary Discharge Diagnosis: Status post lumbar wound I and D. Hospital Course: Patient brought to hospital on 03/29/2018 for above noted surgery. She developed a postoperative abscess. Had superficial wound I and D done. Was treated with IV vancomycin until culture results return. Culture noted no growth. Patient discharged home on postop day 3 on oral antibiotic. Status at Discharge Cognitive/behavioral status at discharge: Alert, oriented no acute distress Functional status at discharge: independent ambulation Overall status at discharge: patient is progressing back to baseline Time Spent with Patient Less than 30 minutes Exam Vital Signs (past 8 hours): Oxygen Delivery Method Room Air Oxygen Flow Rate 0 Narrative Exam Narrative: Back. CovRsite dressing to lumbar incision is dry without d rainage or inflammation. Op site dressings to the Hemovac sites are dry without drainage or inflammation. Objective Labs Result Diagrams: 03/31/18 07:14 Labs: Laboratory Results - last 24 hr 03/31/18 17:30 Vancomycin Trough 10.1 Discharge Plan Discharge Plan Patient Disposition: Home Discharge comment: Discharged home today after PICC line at [place]. Discharge Med Rec/Prescriptions Prescriptions: New levofloxacin 750 mg tablet 750 mg PO DAILY Qty: 10 RF: 0 Continued diazepam 5 mg Tablet 2.5 mg PO BID-QID PRN (Reason: muscle relaxation) RF: 0 nystatin 100,000 unit/gram Ointment See Rx Instructions .ROUTE .COMPLEX RF: 0 methadone 10 mg Tablet 20 mg PO BID RF: 0 lisinopril 20 mg Tablet 20 mg PO DAILY RF: 0 aspirin 81 mg Tablet,Chewable 81 mg PO DAILY RF: 0 tizanidine 4 mg Tablet 4 mg PO Q6H PRN (Reason: muscle spasticity) Qty: 30 RF: 0 oxycodone 10 mg Tablet 10 mg PO Q3HR PRN (Reason: Pain, Severe (7-10)) Qty: 40 RF: 0 Follow up/Referrals: Brandon Diaz MD [Physician] - (Follow up with Dr. Diaz in 10 days.) Provider Discharge Instructions Diet: Diet as Tolerated Activity: Ambulate as tolerated. Avoid excessive bending or twisting of lumbar spine. Skin/Wound/Dressing Care Report to your healthcare provider any signs of infection, such as:: chills, fever, night sweats, increased pain, unusual drainage and unusual redness Dressing: Keep CovRsite dressing dry and clean. Discharge Data Attending Provider: Brandon Diaz Admit Date/Time: 03/29/18 20:11 Quality VTE Deep Vein Thrombosis/Pulmonary Embolism Present on Admission: No
--- NOTE | 2018-04-01 12:06 | CM.DPC ---
Addendum entered by Chante Pratt LPN 04/01/18 12:09: Pt will be following up with Dr. Diaz's office in 10 days. Original Note: DCP: continued: pt now with a d/c to home. She is noted to be up and indendent in room. Ortho FERNANDO Regan confirms that the cultures came back and pt is fine for home on oral antibioticc. P: home today. will follow prn
== END 2018-04-01 10:18 | disposition home or self-care (01) | DRG 858 ==
PROVIDERS: Admitting Provider Orthopaedic Surgery; Visit Provider Orthopaedic Surgery
PROC: 0KBG0ZZ Excision of Left Trunk Muscle, Open Approach (ICD-10-PCS; CPT 10180; principal; 2018-03-29 17:30)
DX: T81.42XA Infection following a procedure, deep incisional surgical site, initial encounter (principal); G89.29 Other chronic pain; F32.9 Major depressive disorder, single episode, unspecified; K21.9 Gastro-esophageal reflux disease without esophagitis; F17.210 Nicotine dependence, cigarettes, uncomplicated; I10 Essential (primary) hypertension; G47.33 Obstructive sleep apnea (adult) (pediatric); E11.9 Type 2 diabetes mellitus without complications
CPT/HCPCS: 36415; 36573; 36592; 72131; 80048; 80202; 82565; 82962; 85025; 85651; 86140; 87070; 87075; 87205; 93005; 94760; 99406; J0330; J1170; J2060; J2175; J2250; J2704; J2765; J3010; J3370; J3410

== ENCOUNTER 2018-04-27 14:33 | Inpatient (IN) | payer MEDICARE, SELFPAY ==
[2018-03-29 20:16] VITALS: BMI 33.7
[2018-04-27] VITALS (13 sets, daily range): BP systolic 102–148; BP diastolic 44–85; PULSE 59–82; RESP 16–20; TEMP 35.9–36.9; O2SAT 91–99; BMI 34.9
[2018-04-27] MEDS: LACTATED RINGERS 1,000 ML 42 ML IV ×2 (15:05→17:58)
--- NOTE | 2018-04-27 16:32 | PM.PREOP ---
Pre-operative Note Interval Note History & Physical reviewed/Exam performed by Physician: Yes Changes to H&P: No
[2018-04-27] MEDS: SODIUM CHLORIDE IRRIG SOLUTION 3,000 ML, GENTAMICIN 240 MG IRR (17:43)
--- NOTE | 2018-04-27 18:14 | PM.OP.1 ---
Operative Date/Time/Diagnoses Date of procedure: 04/27/18 Time of procedure: 18:14 Pre-op diagnosis: Postoperative wound infection Post-op diagnosis: other ( postoperative seroma) Procedure & Clinicians Procedure: irrigation debridement of lumbar wound Same procedure as scheduled: Yes Indications: 67-year-old female with severe recurrent pain after a lumbar laminectomy and fusion. She had a postoperative wound breakdown and had undergone irrigation debridement which relieved the majority of her pain approximately 1 month ago. However it began coming back. A new MRI was obtained showing a residual postoperative fluid collection. It was felt that her best bet would have this surgically explored and washed out in case this was a recurrent infection. Surgeon: Brandon Diaz Click Yes if Unassisted: Yes Anesthesia Type: General Operative Notes Findings: none Closure Type: primary Specimen(s): other (wound cultures) Estimated Blood Loss (mL): 5 Procedure in detail: She was brought to the operating room and intubated on the stretcher. She was then rolled over to the well-padded Sampson table. The back was prepped and draped in the standard sterile fashion. Preoperative antibiotics were held in case this was infection and we wanted culture results. A time-out was performed. We opened up her left-sided incision approximately 4 cm. About 2 cm deep to the skin we came to a large fluid collection which corresponded with her MRI. This was cultured. The wound was opened up. There was a good firm capsule around this. There was no extension going any deeper as this was all in the superficial tissue. We used a Puente to sharply debride the fluid capsule for the incisional debridement. We then placed a deep drain. The capsule was loosely reapproximated to try to close the space. The superficial and soft tissue were closed. The skin was closed. She had a small area of dehiscence on the right-sided wound. An approximately 3 cm elliptical excision was made to remove this. This was irrigated as well. The superficial and skin were closed. Sterile dressing was placed. She was then rolled over, extubated, and brought to recovery room Complications: none Condition: stable Disposition: PACU Plan for aftercare: Plan for inpatient. Start on IV antibiotics which were started in the recovery room. Awaiting culture results.
[2018-04-27] MEDS: HYDROMORPHONE 2 MG INJ 0.5 MG IV ×4 (18:15→18:36)
[2018-04-27] MEDS: CEFAZOLIN 2 GM/100 ML FROZ.PIGGY IV (18:29)
[2018-04-27] MEDS: LACTATED RINGERS 1,000 ML 125 ML IV (19:49)
[2018-04-27] MEDS: HYDROMORPHONE 1 MG INJ 0.5 MG IV (20:31)
[2018-04-27] MEDS: KETOROLAC 30 MG/ML VIAL IV (20:32)
[2018-04-27] MEDS: DOCUSATE 100 MG CAPSULE PO (20:32)
[2018-04-27] MEDS: METHADONE 10 MG TABLET 20 MG PO (20:32)
[2018-04-27] MEDS: SENNOSIDES 8.6 MG TABLET 17.2 MG PO (20:32)
--- NOTE | 2018-04-27 21:46 | PC.NURSE ---
Addendum entered by Vicki East R.N. 04/27/18 22:22: Patient placed on O2 at 2L via NC, O2 sat 93%. Patient states uses O2 at her at 2-3 L via NC. States required Cpap but will not and has not been compliant with its use and has been using Oxygen. Original Note: Gudelia shift note: Patient admitted to room 203 from PACU S/P debridement to lumbar wound by Dr. Diaz. Patient awake, alert, up out of bed and into the restroom, voided. C/O pain to mid lower back, medicated as ordered. Tolerated regular diet. Oriented to room, environment, and plan of care.
[2018-04-28] MEDS: KETOROLAC 30 MG/ML VIAL IV ×4 (00:06→17:52)
[2018-04-28] MEDS: CEFAZOLIN 2 GM/100 ML FROZ.PIGGY IV ×3 (02:10→17:56)
[2018-04-28] MEDS: OXYCODONE IR 5 MG TABLET 10 MG PO ×5 (02:32→19:17)
[2018-04-28] MEDS: LACTATED RINGERS 1,000 ML 125 ML IV (04:59)
[2018-04-28 06:00] VITALS: BP 111/61; PULSE 68; RESP 16; TEMP 36.3; O2SAT 99
--- NOTE | 2018-04-28 07:57 | PM.PNPO.1 ---
Subjective Date Patient Seen: 04/28/18 Time Patient Seen: 07:57 Interval history: She is still sore but overall feels better than prior to surgery. She was able to get up and walk around to the bathroom in the left hip was not bothering her with that. However she still feels achy there. Exam Vital Signs (past 8 hours): - 04/28/18 06:00 Temperature 97.3 F L Pulse Rate 68 Respiratory Rate 16 Blood Pressure 111/61 Pulse Oximetry 99 Oxygen Delivery Method Nasal Cannula Oxygen Flow Rate 2 Note that her temperature and preop was 98.4?. This was entered incorrectly in the chart as 101.2? as the temperature. This was actually her weight in kg. We are working on getting this corrected in the chart. She has not had a fever. Back/Spine/Pelvis Other: Dressing CDI. 5/5 motor both lower extremities. Drain output 5 mL Assessment & Plan Post-op Postoperative Procedures Operation Date: 04/27/18 15:45 Actual Procedures Side Surgeon p Incision and Drainage Wound/Spine Brandon Diaz MD The wound yesterday looked more like a well-encapsulated seroma and did not appear to be infected. Normal Gram stain and no growth to date on the cultures. Her infection labs are only mildly elevated with a CRP but the sed rate and white count are normal. I am still not sure exactly what to make of this but I will keep her in the hospital for another day to see if anything grows out of her cultures. Will plan on sending her home on oral antibiotics prophylactically.
[2018-04-28 08:15] VITALS: BP 108/56; PULSE 69; RESP 16; TEMP 36.4; O2SAT 96
--- NOTE | 2018-04-28 08:41 | OT.IP.TRT ---
Current Diagnoses Spondylolisthesis, lumbar region (04/27/18) Spinal stenosis, lumbar region with neurogenic claudication (04/27/18) Infection following a procedure, other surgical site, initial encounter (04/27/18) Arthrodesis status (04/27/18) Surgery Performed Operation Date: 04/27/18 15:45 Actual Procedures p Incision and Drainage Wound/Spine - Brandon Diaz MD Occupational Therapy Treatment Note M3 OT- IP Subjective and Pain Start: 04/28/18 08:34 Freq: Status: Active Protocol: Document 04/28/18 08:34 [facility] (Rec: 04/28/18 08:41 [facility] [email or web address]) OT- Subjective Occupational Therapy Visit Type Type Patient Refusal Notes Pt here for another I and D 04/27/18, original sx for back on 02/28/18 and I and D on 03/29/18. Pt has all OT equipment and supportive family to assist. Therefore pt not wanting OT eval. Discharge OT eval.
[2018-04-28] MEDS: DOCUSATE 100 MG CAPSULE PO ×2 (09:35→21:23)
[2018-04-28] MEDS: METHADONE 10 MG TABLET 20 MG PO ×2 (09:35→21:22)
[2018-04-28] MEDS: ASPIRIN 81 MG TAB PO (09:38)
--- NOTE | 2018-04-28 11:40 | PT.IIE ---
Current Diagnoses Spondylolisthesis, lumbar region (04/27/18) Spinal stenosis, lumbar region with neurogenic claudication (04/27/18) Infection following a procedure, other surgical site, initial encounter (04/27/18) Arthrodesis status (04/27/18) Surgery Performed Operation Date: 04/27/18 15:45 Actual Procedures p Incision and Drainage Wound/Spine - Brandon Diaz MD Surgical History (Last Updated 02/15/18 @ 11:03 by Vandana Shearer RN) History of abdominal surgery (Acute) History of cholecystectomy (Acute) History of lumbar fusion (Acute) History of lumbar laminectomy (Acute) History of tonsillectomy (Acute) Hx of bladder repair surgery (Acute) Hx of cervical spine surgery (Acute 11/22/17) Hx of tubal ligation (Acute) S/P removal of left ovary (Acute) Medical History (Last Updated 02/15/18 @ 11:14 by Vandana Shearer RN) Cervical disc herniation (Acute) Chronic, continuous use of opioids (Acute) Depression (Acute) Diabetes mellitus (Acute) GERD (gastroesophageal reflux disease) (Acute) History of cystitis (Acute) History of hysterectomy (Acute) Hyperlipidemia (Acute) Hypertension (Acute) Other chronic pain (Acute) Pain (Acute) Pancreatitis (Acute) Sleep apnea (Acute) Spinal headache (Acute) Spinal stenosis of cervical region (Acute) Strain of neck muscle (Acute) Physical Therapy Inpatient Evaluation/Re-Eval M1 PT/OT-IP Prior Functional Status Start: 04/28/18 08:34 Freq: NEEDED Status: Active Protocol: Document 04/28/18 11:40 AB (Rec: 04/28/18 12:48 AB [email or web address]) Medical Review Prior Functional Status Medical History Reviewed Yes Communication able to make needs known Mobility and Gait pt stated that she is modified independent with all mobilities and ambulation using a 4WW Social History Household Members family Living Arrangements House Number of Floors (Floors) One Floor Number of Stairs To Enter/Railing? 1 step entry Home Environment Standard Height Toilet Tub/Shower Home Equipment Bedside Commode Shower Seat with Backrest Bed Rails Grab Bars In Shower Additional Social History Comment pt has a L sided bed cane M2 PT-IP Current Condition Start: 04/28/18 12:37 Freq: NEEDED Status: Active Protocol: Document 04/28/18 11:40 AB (Rec: 04/28/18 12:48 AB [email or web address]) Physical Therapy Current Condition Current Condition Evaluation Date 04/28/18 Treatment Diagnosis I&D lumbar; difficulty in walking Onset Date 04/27/18 Precautions Lumbar Precautions Log Roll No Twisting Limit Bending Lifting Restriction of 10 lbs Gait Belt above Incisional Area M3 PT-IP Subjective Start: 04/28/18 12:37 Freq: NEEDED Status: Active Protocol: Document 04/28/18 11:40 AB (Rec: 04/28/18 12:48 AB [email or web address]) Subjective Physical Therapy Visit Type Type Initial Evaluation Visit Start Time 11:40 Visit Stop Time 12:06 Total Visit Minutes 26 Number of PARTS LISTER Visits 0 Physical Therapy Visit Comments Patient Comments pt agreeable to do PT Therapy Pain Assessment Pain When Pain Assessed At Rest Pain Present Pain Present Pain Reported Location Left Hip Intensity 8 Scale Used Numeric (1 - 10) Pain Management Techniques Re-positioning Timing of Activity with Medications Back Intensity 8 Scale Used Numeric (1 - 10) Pain Management Techniques Re-positioning Timing of Activity with Medications M4 PT-IP Mobility and Gait Start: 04/28/18 12:37 Freq: NEEDED Status: Active Protocol: Document 04/28/18 11:40 AB (Rec: 04/28/18 12:48 AB [email or web address]) PT-Bed Mobility Assessment Rolling Type of Rolling Log Rolling Level of Assist Independent Supine to Sit Supine to Sit Independent Sit to Supine Sit to Supine Independent Scooting Scooting to Edge of Bed Independent PT-Transfer Assessment Sit to and From Stand Sit to and from Stand Independent Equipment Transfer Assistive Device Gait Belt 4 Wheeled Walker Transfers Transfer Destination Bed Transfer Technique Stand Step Pivot Transfer Ability Level of Assist Independent Use of Upper Extremities Gait Assessment Gait Gait Assistance Required: Independent Standby Assistance Distance (Feet) 300 Able to Maintain Weight Bearing Status Yes During Gait Assistive Devices Assistive Device Gait Belt 4 Wheeled Walker Orthotic/Prosthetic Devices or Brace: No Gait Deviations General Gait Pattern Antalgic Step-to Gait Factors Limiting Gait Function Factors Limiting Gait Function Decreased Activity Tolerance Decreased Strength Limited Range of Motion Pain Comments Gait Comments pt mod I with ambulation using 4WW short distances/in room. required SBA for log distance ambulation using 4WW for safety with pain limiting gait quality. pt educated on safety and informed that she is cleared to ambulate in room but ask for assistance for long distance ambulation out of the room depending on pain level. informed nurse and agreed. Stair Climbing Assessment Evaluation Level of Assist On Stairs Standby Assistance Devices Stair Climbing Assistive Devices Four Wheel Walker Technique/Endurance Stair Climbing Direction Ascend and Descend Stair Climbing Technique Step to Step Number of Steps Climbed 1 Query Text: Stair Climbing Set # Repetitions (reps) 1 PT-Balance Assessment Sitting Balance and Reactions Static Sitting Balance Ability Good Dynamic Sitting Balance Ability Good Standing Balance and Reactions Static Standing Balance Ability Fair Dynamic Standing Balance Ability Fair Device Used 4WW M5 PT-IP Objective Assessments Start: 04/28/18 12:37 Freq: NEEDED Status: Active Protocol: Document 04/28/18 11:40 AB (Rec: 04/28/18 12:48 AB [email or web address]) Orientation Orientation/Cognition Level of Alertness Alert Orientation Name Age Birthday Month Date Year Day of Week Place Situation Language Function Ability No Deficits Noted Safety Awareness Understands Safety Issues Memory Description No Deficits Noted Gross Range of Motion Lower Extremity ROM Assessment Within Functional Limits Strength Lower Extremity Strength Assessment Left Impaired Hip 3+/5 Coordination Assessment Gross Coordination Gross Coordination WNL Sensation Assessment Sensation Gross Sensation WNL Muscle Tone Muscle Tone WNL Yes M6 PT-IP Treatment Start: 04/28/18 12:37 Freq: NEEDED Status: Active Protocol: Document 04/28/18 11:40 AB (Rec: 04/28/18 12:48 AB [email or web address]) Physical Therapy Treatment Education Education Provided Precautions Safety M7 PT-IP Assessment and Plan Start: 04/28/18 12:37 Freq: NEEDED Status: Active Protocol: Document 04/28/18 11:40 AB (Rec: 04/28/18 12:48 AB [email or web address]) PT Summary Assessment and Plan Potential Rehabilitation Potential Good Status of Condition at Evaluation Stable Summary Impairments Pain ROM Strength Balance Coordination Sensation Tone Cognition Bed Mobility Transfers Gait Activity Tolerance Assessment Summary pt is at prior level of function and no further PT intervention indicated at this time. pt educated on safety and to ask for assistance when needed. pt agreed. Goals Gait Goal Four Wheel Walker Frequency of Treatment Frequency Of Treatment Discharge Recommendations To Nursing Amount of Assist Needed Standby Assistance Discharge Recommendations PT Discharge Recommendations Home with Assistance
[2018-04-28 15:43] VITALS: BP 123/74; PULSE 68; RESP 16; TEMP 36.6; O2SAT 96
[2018-04-28] MEDS: ACETAMINOPHEN 325 MG TABLET 975 MG PO (16:52)
[2018-04-28 19:48] VITALS: BP 126/75; PULSE 66; RESP 18; TEMP 36.7; O2SAT 94
[2018-04-28 20:13] VITALS: O2SAT 94
[2018-04-28] MEDS: SENNOSIDES 8.6 MG TABLET 17.2 MG PO (21:22)
[2018-04-28 23:45] VITALS: BP 117/68; PULSE 62; RESP 16; TEMP 36.3; O2SAT 94
[2018-04-28] MEDS: ACETAMINOPHEN 325 MG TABLET 650 MG PO (23:58)
[2018-04-29] MEDS: CEFAZOLIN 2 GM/100 ML FROZ.PIGGY IV ×3 (02:54→17:32)
[2018-04-29] MEDS: OXYCODONE IR 10 MG TABLET 20 MG PO (05:34)
[2018-04-29 06:00] VITALS: BP 141/73; PULSE 69; RESP 18; TEMP 36.7; O2SAT 97
--- NOTE | 2018-04-29 08:18 | PM.PNPO.1 ---
Subjective Date Patient Seen: 04/29/18 Time Patient Seen: 08:18 Interval history: Pain is still severe in the back and the left buttock and left thigh. Does not feel any different after the washout at this point. She has actually been getting less pain medication than she had been taking at home. Exam Vital Signs (past 8 hours): - 04/29/18 06:00 Temperature 98.1 F Pulse Rate 69 Respiratory Rate 18 Blood Pressure 141/73 H Pulse Oximetry 97 Oxygen Delivery Method Nasal Cannula Oxygen Flow Rate 2 Const Orientation: alert and oriented x3 Other: 5/5 motor both lower extremities. Mild drainage on dressing. drain 10/07/09 last 3 shifts Objective Labs Labs: No growth to date on cultures Assessment & Plan Post-op Postoperative Procedures Operation Date: 04/27/18 15:45 Actual Procedures Side Surgeon p Incision and Drainage Wound/Spine Brandon Diaz MD she is not doing any better. With her normal seroma appearance at the time of surgery as well as on her contrast MRI before this, as well as no growth to date on cultures, as well as minimal elevation of her CRP only, I think there is a low chance that this is an infection. I am going to give her a dose of steroids. I have reviewed her postoperative CT scan and MRI. There is no evidence of any enhancement in the disc or any hardware complications. Her spinal canal and foramen were wide open. I think this is all inflammatory and should respond to steroids. she has chronic back pain is been on high-dose narcotics for this. Certainly her tolerance is playing into the situation. she still having moderate output on her drain. If this settles down it can be pulled tomorrow and hopefully send her home. I would put her on Keflex prophylactically.
[2018-04-29] MEDS: ACETAMINOPHEN 325 MG TABLET 650 MG PO ×2 (08:22→16:33)
[2018-04-29] MEDS: METHADONE 10 MG TABLET 20 MG PO ×2 (08:23→21:57)
[2018-04-29] MEDS: ASPIRIN 81 MG TAB PO (08:24)
[2018-04-29] MEDS: DOCUSATE 100 MG CAPSULE PO ×2 (08:24→22:01)
[2018-04-29] MEDS: LISINOPRIL 20 MG TABLET PO (08:25)
[2018-04-29 09:04] VITALS: BP 127/74; PULSE 68; RESP 16; TEMP 36.6; O2SAT 95
[2018-04-29 09:15] VITALS: O2SAT 94
[2018-04-29] MEDS: SODIUM CHLORIDE 0.9% FLUSH 10 ML IV ×2 (10:06→22:02)
[2018-04-29] MEDS: DEXAMETHASONE 10 MG/ML VIAL IV (10:06)
[2018-04-29] MEDS: OXYCODONE IR 10 MG TABLET PO ×4 (10:08→22:00)
--- NOTE | 2018-04-29 11:31 | PC.NURSE ---
Pt given iv decadron, pushed slowly and pt states that she felt like she was having some tingling on the top of her head and in her saray area. This only lasted for about 5-10 seconds and pt was fine. Called the pharmacist and she told me that decadron does have that effect. Pt given 10mg of po percolone and is resting comfortably. Just ambulated around the block and used walker, tolerated well.
[2018-04-29 13:00] VITALS: BP 137/66; PULSE 66; RESP 16; TEMP 36.6; O2SAT 94
[2018-04-29] MEDS: DEXAMETHASONE 4 MG/ML VIAL IV ×2 (14:03→21:44)
--- NOTE | 2018-04-29 15:15 | CM.DANOTE ---
Discharge Planning/Care Management DCP: assessment: case received yesterday, EMR reviewed. Discussed in Team Rounds: PT and OT were pending. Spoke this morning with Dr. Diaz: he said he anticipated pt would go home but she was still limited by severe pain and drain output. Met now with pt after EMR again reviewed. Introduced self and role. Pt is a 67 year old female who admitted 3/ afternoon to Surgeon: Dr. Diaz for a scheduled I&D of lumbar wound. PT tearfully recounts that she has had increasing problems since her spinal surgery in Feb (was here at from Feb 28-2018) and under Dr. Diaz's care. She states she has had 7 surgeries on her spine with first one at age 37. She states she has never felt this level of pain which radiates down her L side. She states her sister, who works as a PT for a [employer] agency validates her concerns and encourges her to see if further testing is available to dx her pain. She says she is hopeful the steroids started today will help but it's been 4 hours and so far it's terrible. OT did try to see pt but pt refused. PT Alee saw pt and has d/c'd her from PT. Asked pt about this and she said it was because she can walk using the walker but says the pain while in bed is excruciating. Pt does hope to go home at d/c but her real goal at this time she says is to find out what is wrong. P: discuss with Dr. Diaz tomorrow and follow. CM Discharge Assessment Start: 04/29/18 15:13 Freq: Status: Active Protocol: Document 04/29/18 15:13 ITV (Rec: 04/29/18 15:15 ITV [id number]) Discharge Planning Assessment Advance Directives? Yes History Provided By Patient Medical Record Prior Living Arrangements House Household Members family Comment takes care of her mother who has dementia Is patient alert and oriented? Yes Discharge Plan Home Whiteboard Updated in Patient Room with Yes name and ext. # of Purchasing And Claims Supervisor Review Status In Process Next Review Type Continued Stay Review
[2018-04-29 16:46] VITALS: BP 136/68; PULSE 64; RESP 16; TEMP 36.3; O2SAT 93
[2018-04-29 20:40] VITALS: BP 151/69; PULSE 66; RESP 16; TEMP 36.3; O2SAT 93
[2018-04-29] MEDS: hydrOXYzine pamoate 25 MG CAPSULE PO (21:44)
[2018-04-29] MEDS: SENNOSIDES 8.6 MG TABLET 17.2 MG PO (22:01)
--- NOTE | 2018-04-29 23:23 | PC.NURSE ---
Gudelia shift note: Hemovac 10 ml
[2018-04-30] VITALS: BP 139/73; PULSE 62; RESP 16; TEMP 36.6; O2SAT 94
[2018-04-30] MEDS: OXYCODONE IR 5 MG TABLET 10 MG PO (01:58)
[2018-04-30] MEDS: CEFAZOLIN 2 GM/100 ML FROZ.PIGGY IV ×3 (01:59→17:35)
[2018-04-30] MEDS: DEXAMETHASONE 4 MG/ML VIAL IV ×2 (03:00→09:15)
--- NOTE | 2018-04-30 04:11 | PC.NURSE ---
Pt VSS, tolerating ABOs well. CBGs elevated to mid 200's; has had 4 does of Decadron. Pain on L side remains an issue: Pt thinks it may be nerve damage and she also believes the hardware in her back that is 30 years old, should not have been taken out. She was crying and tearful this shift, concerned that the pain will not go away and she will not be able to go back to her supportive roles with her mother, son and ex -renter, who are all ill. Dressing is C/D/I. Pt requested no tape, tegaderm okay.
[2018-04-30] MEDS: ACETAMINOPHEN 325 MG TABLET 650 MG PO ×2 (06:11→17:34)
[2018-04-30 08:00] VITALS: BP 102/58; PULSE 72; RESP 18; TEMP 36.6; O2SAT 93
[2018-04-30] MEDS: METHADONE 10 MG TABLET 20 MG PO ×2 (09:11→21:33)
[2018-04-30] MEDS: OXYCODONE IR 10 MG TABLET PO ×4 (09:13→21:55)
[2018-04-30] MEDS: ASPIRIN 81 MG TAB PO (09:13)
[2018-04-30] MEDS: DOCUSATE 100 MG CAPSULE PO ×2 (09:13→21:33)
[2018-04-30] MEDS: SODIUM CHLORIDE 0.9% FLUSH 10 ML IV ×2 (09:16→21:33)
--- NOTE | 2018-04-30 10:49 | PM.PNPO.1 ---
Subjective Date Patient Seen: 04/30/18 Time Patient Seen: 10:49 Interval history: The patient reports she still having significant pain in the low back, left buttock and all the way down her left leg. She does feel she is slightly improved after the steroids yesterday. Exam Vital Signs (past 8 hours): - 04/30/18 08:00 Temperature 97.8 F Pulse Rate 72 Respiratory Rate 18 Blood Pressure 102/58 L Pulse Oximetry 93 Fraction of Inspired Oxygen 21 Oxygen Delivery Method Room Air Oxygen Flow Rate 0 Narrative Exam Narrative: Dressings are clean and dry. There was minimal drain output so the drain was removed. Lower extremities are neurovascularly intact. Assessment & Plan Post-op Postoperative Procedures Operation Date: 04/27/18 15:45 Actual Procedures Side Surgeon p Incision and Drainage Wound/Spine Brandon Diaz MD Postoperative status narrative: The patient is still progressing slowly after surgery from a pain control standpoint. Her drain was DC today. No signs of active infection. Continue with physical therapy immobilizing today. Plan discharge tomorrow.
--- NOTE | 2018-04-30 15:39 | PC.NURSE ---
pts hemovac taken out earlier and dressing changed. Pt showered, and given pain medication so she could rest. She has been taking oxycodone for discomfort and this has helped her hip pain.
[2018-04-30 15:50] VITALS: BP 145/78; PULSE 65; RESP 17; TEMP 36.7; O2SAT 95
[2018-04-30] MEDS: hydrOXYzine pamoate 25 MG CAPSULE PO ×2 (18:06→21:55)
[2018-04-30 20:20] VITALS: BP 139/75; PULSE 67; RESP 18; TEMP 36.2; O2SAT 98
[2018-04-30] MEDS: SENNOSIDES 8.6 MG TABLET 17.2 MG PO (21:33)
[2018-04-30 22:29] LABS: Bacteria Urine None Seen; RBC Urine None Seen (0-5/HPF); WBC Urine None Seen (0-5/HPF)
[2018-04-30 22:30] LABS: Appearance Urine UA CLEAR; Bilirubin Urine UA NEGATIVE (NEGATIVE); Color Urine UA YELLOW; Glucose Urine UA TRACE g/dL (Negative); Ketones Urine UA NEGATIVE (NEGATIVE); Leukocyte Esterase Urine UA NEGATIVE (NEGATIVE); Nitrite Urine UA NEGATIVE (Negative); Occult Blood Urine UA NEGATIVE (Negative); Protein Urine UA NEGATIVE (Negative); Urobilinogen Urine UA 0.2 E.U./dL (0.2); pH Urine UA 6.5 (4.5-8.0)
[2018-04-30 22:36] LABS: Culture Indicated Urine Cult Not Indicated; Squamous Epithelial Cell Urine 0-1 /HPF; Urine Comments Microscopic Normal
[2018-04-30 23:52] VITALS: BP 144/77; PULSE 57; RESP 18; TEMP 36.3; O2SAT 96
--- NOTE | 2018-05-01 | DI.US.S_ITS ---
PROCEDURE: US PERIPH VENOUS LOW EXTREM LT INDICATIONS: LEFT LEG PAIN TECHNIQUE: Real-time imaging, as well as color and pulse Doppler interrogation, were performed of the lower extremity deep veins from the inguinal ligament to the popliteal fossa. COMPARISON: None. FINDINGS: The deep veins are normally compressible, and free of intraluminal thrombus. Color and pulse Doppler demonstrate normal phasic intraluminal flow. There is normal augmentation response to distal compression maneuver. IMPRESSION: No visualized deep venous thrombosis. Dictated by: Estrellita Watkins M.D. on 05/01/2018 at 10:15 Approved by: Estrellita Watkins M.D. on 05/01/2018 at 10:15
[2018-05-01] MEDS: CEFAZOLIN 2 GM/100 ML FROZ.PIGGY IV ×2 (01:53→10:45)
[2018-05-01] MEDS: OXYCODONE IR 10 MG TABLET PO ×3 (03:29→13:13)
[2018-05-01] MEDS: ACETAMINOPHEN 325 MG TABLET 650 MG PO ×2 (03:30→10:53)
[2018-05-01 06:22] VITALS: BP 111/60; PULSE 55; RESP 16; TEMP 36.3; O2SAT 95
[2018-05-01 07:16] LABS: Add Manual Diff / Slide Review NO; Basophils Absolute Auto 0 /uL (0-100); Basophils Percent Auto 0.4 % (0-2); Eosinophils Absolute Auto 500 /uL (0-450); Eosinophils Percent Auto 4.6 % (2-4); Hematocrit 37.2 % (36-46); Hemoglobin 12.3 g/dL (12.0-16.0); Lymphocytes Absolute Auto 3500 /uL (1100-4500); Lymphocytes Percent Auto 35.7 % (25-40); Mean Corpuscular HGB Conc 33.1 % (30-36); Mean Corpuscular Volume 93.6 fL (80-100); Monocytes Absolute Auto 600 /uL (0-900); Neutrophils Absolute Auto 5300 /uL (1500-7000); Neutrophils Percent Auto 53.3 % (50-75); Platelet Count 270 X10^3/uL (150-400); Red Blood Cell Count 3.98 X10^6/uL (4.0-5.2); Red Cell Distribution Width 13.5 % (11.6-14.8); White Blood Cell Count 9.9 X10^3/uL (4.5-11.0)
[2018-05-01 07:25] LABS: Erythrocyte Sedimentation Rate 42 MM/HR (0-20)
[2018-05-01 07:26] LABS: C-Reactive Protein Quant 0.6 mg/dL (<1.0)
--- NOTE | 2018-05-01 07:50 | P.PN_ITS ---
Subjective Date Patient Seen: 05/01/18 Time Patient Seen: 07:49 Interval history: Feeling much better. Able to walk, but still getting pain into left buttock. Exam Vital Signs (past 8 hours): - 04/30/18 23:52 05/01/18 06:22 Temperature 97.3 F L 97.4 F L Pulse Rate 57 L 55 L Respiratory Rate 18 16 Blood Pressure 144/77 H 111/60 Pulse Oximetry 96 95 Fraction of Inspired Oxygen 21 Oxygen Delivery Method Room Air Oxygen Flow Rate 0 Const Orientation: alert and oriented x3 Back/Spine/Pelvis Other: cdi. 5/5 motor BLE Objective Labs Result Diagrams: 05/01/18 06:40 Labs: Laboratory Results - last 24 hr 04/30/18 05/01/18 05/01/18 20:45 06:40 06:40 WBC 9.9 RBC 3.98 L Hgb 12.3 Hct 37.2 MCV 93.6 MCH 31.0 MCHC 33.1 RDW 13.5 Plt Count 270 Neut % (Auto) 53.3 Lymph % (Auto) 35.7 [place] % (Auto) 6.0 Eos % (Auto) 4.6 H Baso % (Auto) 0.4 Neut # (Auto) 5300 Lymph # (Auto) 3500 [place] # (Auto) 600 Eos # (Auto) 500 H Baso # (Auto) 0 ESR 42 H C-Reactive Protein 0.6 Urine Color Yellow Urine Appearance Clear Urine pH 6.5 Ur Specific [place] 1.010 Urine Protein Negative Urine Glucose (UA) Trace H Urine Ketones Negative Urine Occult Blood Negative Urine Nitrate Negative Urine Bilirubin Negative Urine Urobilinogen 0.2 Ur Leukocyte Esterase Negative Urine RBC None seen Urine WBC None seen Ur Squamous Epith Cells 0-1 /hpf Urine Bacteria None seen Ur Culture Indicated? Cult not indicated Micro UA Comment Microscopic normal Assessment & Plan Post-op Postoperative Procedures Operation Date: 04/27/18 15:45 Actual Procedures Side Surgeon p Incision and Drainage Wound/Spine Brandon Diaz MD Her CRP is back to normal now. U/A normal. Doing better after steroids. Checking a DVT U/S today, if normal, then DC home.
--- NOTE | 2018-05-01 07:51 | PM.DS.1 ---
History of Present Illness Date Patient Seen: 05/01/18 Time Patient Seen: 07:51 Chief complaint: 14836 I&D LUMBAR WOUND Narrative: Patient is 2 months after a lumbar laminectomy and fusion. She had had a postoperative fluid collection and was washed out 1 month after surgery. Nothing grew out of these cultures and she did well for a few weeks but then began getting recurrence of pain in the back and the left leg. A repeat MRI did not show any sign of diskitis or fluid enhancement, but there was still a fluid pocket and subcutaneous tissue. It was felt that the best bet would to be washed this out and check it. Discharge Providers Date of admission: 04/27/18 14:33 Discharge Date: 05/01/18 Primary care physician: Nayeli Dias PA-C Consults: 04/27/18 19:21 Consult to Occupational Therapy Evaluate & Treat Comment: Physician Instructions: Evaluate and treat Consult to Physical Therapy Evaluate & Treat Comment: Physician Instructions: Evaluate and Treat Discharge provider: Brandon Diaz MD Summary Discharge Diagnosis: Postoperative seroma Lumbar radiculopathy Hospital Course: She was brought to the operating room on 04/27/2018 where she underwent irrigation debridement of her lumbar wound. There was a moderate-size fluid collection, well encapsulated. This was sent off for culture but never grew any results in microbiology. Her pain was still quite severe and she was given a course of IV steroids. This made things much more manageable and she was able to get up and walk around. Repeat check of her labs showed her CRP was packed down the normal region. No growth from her cultures. This felt this may have been more inflammatory with a sterile seroma. We also checked an ultrasound of her left leg to make sure there was no DVT, and this was normal. Status at Discharge Cognitive/behavioral status at discharge: oriented Functional status at discharge: uses cane/walker Overall status at discharge: patient is progressing back to baseline Exam Vital Signs (past 8 hours): - 04/30/18 23:52 05/01/18 06:22 Temperature 97.3 F L 97.4 F L Pulse Rate 57 L 55 L Respiratory Rate 18 16 Blood Pressure 144/77 H 111/60 Pulse Oximetry 96 95 Fraction of Inspired Oxygen 21 Oxygen Delivery Method Room Air Oxygen Flow Rate 0 Const Orientation: alert and oriented x3 Back/Spine/Pelvis Other: Dressing CDI. 5/5 motor both lower extremities. Objective Labs Result Diagrams: 05/01/18 06:40 Labs: Laboratory Results - last 24 hr 04/30/18 05/01/18 05/01/18 20:45 06:40 06:40 WBC 9.9 RBC 3.98 L Hgb 12.3 Hct 37.2 MCV 93.6 MCH 31.0 MCHC 33.1 RDW 13.5 Plt Count 270 Neut % (Auto) 53.3 Lymph % (Auto) 35.7 [place] % (Auto) 6.0 Eos % (Auto) 4.6 H Baso % (Auto) 0.4 Neut # (Auto) 5300 Lymph # (Auto) 3500 [place] # (Auto) 600 Eos # (Auto) 500 H Baso # (Auto) 0 ESR 42 H C-Reactive Protein 0.6 Urine Color Yellow Urine Appearance Clear Urine pH 6.5 Ur Specific [place] 1.010 Urine Protein Negative Urine Glucose (UA) Trace H Urine Ketones Negative Urine Occult Blood Negative Urine Nitrate Negative Urine Bilirubin Negative Urine Urobilinogen 0.2 Ur Leukocyte Esterase Negative Urine RBC None seen Urine WBC None seen Ur Squamous Epith Cells 0-1 /hpf Urine Bacteria None seen Ur Culture Indicated? Cult not indicated Micro UA Comment Microscopic normal Discharge Plan Discharge Plan Patient Disposition: Home Discharge comment: f/u 1 wk Discharge Med Rec/Prescriptions Prescriptions: New methadone 10 mg Tablet 20 mg PO BID 7 Days Qty: 28 RF: 0 oxycodone 10 mg Tablet See Rx Instructions .ROUTE .COMPLEX PRN (Reason: Pain, Severe (7-10)) Qty: 56 RF: 0 cephalexin [Keflex] 500 mg capsule 500 mg PO QID Qty: 40 RF: 0 diazepam 5 mg tablet 5 mg PO TID PRN (Reason: spasms) Qty: 20 RF: 0 Continued diazepam 5 mg Tablet 2.5 mg PO BID-QID PRN (Reason: muscle relaxation) RF: 0 nystatin 100,000 unit/gram Ointment See Rx Instructions .ROUTE .COMPLEX RF: 0 methadone 10 mg Tablet 20 mg PO BID RF: 0 lisinopril 20 mg Tablet 20 mg PO DAILY RF: 0 aspirin 81 mg Tablet,Chewable 81 mg PO DAILY RF: 0 tizanidine 4 mg Tablet 4 mg PO Q6H PRN (Reason: muscle spasticity) Qty: 30 RF: 0 oxycodone 10 mg Tablet 10 mg PO Q3HR PRN (Reason: Pain, Severe (7-10)) Qty: 40 RF: 0 Follow up/Referrals: Nayeli Dias PA-C [Primary Care Provider] - Provider Discharge Instructions Diet comment: reg Activity: limited BLT 10 lbs Skin/Wound/Dressing Care Dressing: may change prn and shower POD#5 Visit Report/Discharge Packet Instructions: DI for Incision and Drainage Stand Alone Forms: Surgery Discharge Visit Report Forms: Stroke Signs & Symptoms Discharge Data Primary Care Provider: Nayeli Dias Attending Provider: Brandon Diaz Admit Date/Time: 04/27/18 14:33
[2018-05-01] MEDS: METHADONE 10 MG TABLET 20 MG PO (08:48)
[2018-05-01] MEDS: ASPIRIN 81 MG TAB PO (08:48)
[2018-05-01] MEDS: DOCUSATE 100 MG CAPSULE PO (08:48)
[2018-05-01] MEDS: SODIUM CHLORIDE 0.9% FLUSH 10 ML IV ×2 (08:49→10:42)
[2018-05-01] MEDS: LISINOPRIL 20 MG TABLET PO (08:49)
[2018-05-01 09:24] VITALS: BP 129/59; PULSE 63; RESP 16; TEMP 36.8; O2SAT 94
[2018-05-01] MEDS: hydrOXYzine pamoate 25 MG CAPSULE PO (10:54)
--- NOTE | 2018-05-01 13:58 | PC.NURSE ---
Addendum entered by Valeria Everett R.N. 05/01/18 14:24: Taken out to private vehicle via wheelchair. All d/c papers and personal items sent with patient. Original Note: Discharge: IV dc'd intact. Reviewed all d/c paperwork and meds thoroughly. Given scripts for Diazepam, Oxycodone, Methadone and Keflex. She knows when she needs to follow up and believes she already has appt on 05/08 (will call to check). New coversite dressing applied before discharge. Incision sites were well-approximated and without active drainage, bleeding or s/sx infectious process. Directed not to soak or swim until cleared by MD. Verbalized understanding of all d/c info and stated no further questions. All belongings collected and ready to send with patient, we are just waiting on her ride to get here.
== END 2018-05-01 14:26 | disposition home or self-care (01) | DRG 903 ==
PROVIDERS: Admitting Provider Orthopaedic Surgery; PCP Physician Assistant Medical; Visit Provider Orthopaedic Surgery
PROC: 0JB70ZZ Excision of Back Subcutaneous Tissue and Fascia, Open Approach (ICD-10-PCS; CPT 10180; principal; 2018-04-27 15:45)
DX: M96.842 Postprocedural seroma of a musculoskeletal structure following a musculoskeletal system procedure (principal); M43.16 Spondylolisthesis, lumbar region; M48.062 Spinal stenosis, lumbar region with neurogenic claudication; E11.9 Type 2 diabetes mellitus without complications; F32.9 Major depressive disorder, single episode, unspecified; F17.210 Nicotine dependence, cigarettes, uncomplicated; I10 Essential (primary) hypertension; G47.33 Obstructive sleep apnea (adult) (pediatric); G89.29 Other chronic pain; M54.5 Low back pain; M79.605 Pain in left leg
CPT/HCPCS: 36415; 81001; 82962; 85025; 85651; 86140; 87070; 87075; 87205; 93971; 94760; 94762; 97161; 99406; J0330; J0690; J1100; J1170; J1885; J2405; J2704; J3010